=== PATIENT | male | born 1950 | race Hispanic/Latino ===

== ENCOUNTER 2018-04-09 08:57 | Emergency (ER) | payer MEDICARE, BC ==
[~2018-04-09] VITALS: Ht 177.8 cm; Wt 92.5 kg
[2018-04-09] MEDS ORDERED: HYDROCODONE/APAP 7.5MG-325MG 1 EA TAB PO STA (09:19)
[2018-04-09] MEDS ORDERED: ORPHENADRINE CITRATE 30 MG/ML VIAL IM ONE (09:30)
== END 2018-04-09 10:20 | disposition home or self-care (01) ==
LOC: ER 08:57
DX: M54.5 Low back pain (principal); S39.012A Strain of muscle, fascia and tendon of lower back, initial encounter; I10 Essential (primary) hypertension; E11.9 Type 2 diabetes mellitus without complications
CPT/HCPCS: 99283; J2360

== ENCOUNTER 2019-02-22 14:35 | Emergency (ER) | payer BC, MEDICARE, OTHER ==
[~2019-02-22] VITALS: Ht 177.8 cm; Wt 88.5 kg
--- OUTSIDE RECORDS SUMMARY | 2019-02-22 14:39 | XMS REPORT | Summary of Care ---
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 Allergies, Adverse Reactions, Alerts Substance Reaction Severity Status NKDA Active Medications No data available for this section Results No data available for this section Immunizations Given and Recorded Vaccine Date Status Refusal Reason pneumococcal 23-valent vaccine 06/11/13 Given Procedures Procedure Date Related Diagnosis Body Site Colonoscopy Esophagogastroduodenoscopy Insertion of coronary artery stent Social History No data available for this section Assessment and Plan No data available for this section
--- OUTSIDE RECORDS SUMMARY | 2019-02-22 14:39 | XMS REPORT | Continuity of Care Document ---
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 [place] Primary osteoarthritis, right ankle and foot 03/10/2018 09/20/[address] 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 [place] ANKLE Active 06/15/[address] [facility] [place] RIGHT ANKLE Active 06/15/[address] [facility] [place] UNK Active 06/06/2017 [facility] ANKLE SURGERY Active 06/06/2017 [facility] S/P TOTAL ANKLE AND OBSERVATION FOR PAIN Active 06/06/2017 [facility] M19.071 - "PRIMARY OSTEOARTHRITIS, RIGHT Active 05/08/2017 [facility] [place] Lumbosacral spondylosis without myelopathy1 Active 05/28/2013 Problem 10/23/2018 Data migrated from [facility] on 03/24/15. [facility] [place],[facility] [place] SPONDYLOSIS WITHOUT MYELOPATHY Active 05/28/2013 [facility] 724.2 - LUMBAGO Active 10/19/2011 [facility] [place] 250 - DIABETES MELLIT Active 09/28/2011 [facility] [place] Type 2 diabetes mellitus with foot ulcer 12/23/2017 [facility] BPH (Confirmed) Active Problem 10/23/2018 [facility], [place],[facility] [place] CAD (Confirmed) Active Problem 10/23/2018 [facility] [place] Diabetes Active Problem 10/23/2018 [facility] [place] Gout Active Problem 10/23/2018 [facility] [place] Hyperlipidemia Active Problem 10/23/2018 [facility] [place] HTN (Confirmed) Active Problem 10/23/2018 [facility] [place] Osteoarthritis Active Problem 10/23/2018 [facility] [place] History of coronary artery stent placement Active Problem 10/23/2018 [facility] [place] Unspecified open wound, right lower leg, subsequent encounter 12/23/2017 [facility] Type 2 diabetes mellitus with hyperglycemia 12/23/2017 [facility] Essential hypertension 12/23/2017 [facility] Atherosclerotic heart disease of [place] coronary artery without angina pectoris 12/23/2017 [facility] Disruption of external operation wound, not elsewhere classified, initial encounter 12/15/2017 [facility] Acute posthemorrhagic anemia 12/15/2017 [facility] Type 2 diabetes mellitus with diabetic peripheral angiopathy without gangrene 12/15/2017 [facility] Anemia in other chronic diseases classified elsewhere 12/15/2017 [facility] Insomnia, unspecified 12/15/2017 [facility] Presence of right artificial ankle joint 12/15/2017 [facility] Gout, unspecified 12/15/2017 [facility] Benign prostatic hyperplasia without lower urinary tract symptoms 12/15/2017 [facility] Hiccough 12/15/2017 [facility] Pseudomonas (mallei) (pseudomallei) as the cause of diseases classified elsewhere 12/15/2017 [facility] Disruption of external operation wound, not elsewhere classified, subsequent encounter 10/23/[address] [facility] [place] Stiffness of unspecified joint, not elsewhere classified 10/23/[address] [facility] [place] Muscle weakness 10/23/[address] [facility] [place] ARTHRITIS Active [facility] ENCOUNTER FOR OTHER ORTHOPEDIC AFTERCARE Active [facility] DISRUPTION OF EXTERNAL OPERATION (SURGIC Active [facility] Medications Medication Details Route Status Patient Instructions Ordering Provider Order Date Source enoxaparin 40 mg/0.4 mL subcutaneous solution 40 mg=0.4 mL, SUB-Q, [id number], X 30 day, # 12 mL, 0 Refill(s), Pharmacy: [facility]/pharmacy #[id number] No Longer Active 09/07/2017 [facility] ciprofloxacin 250 mg oral tablet 750 mg=3 tab, PO, [id number], X 5 week, # 210 tab, 0 Refill(s), Pharmacy: [facility]/pharmacy #[id number] No Longer Active 09/07/2017 [facility] carvedilol 12.5 mg oral tablet 12.5 mg=1 tab, PO, Q12H, 0 Refill(s) Active 09/07/2017 [facility] Melatonin 3 MG Extended Release Tablet 3 mg=1 tab, PO, Bedtime, 0 Refill(s) Active 09/07/2017 [facility] lisinopril 20 mg oral tablet 20 mg=1 tab, PO, Daily, 0 Refill(s) Active 09/07/2017 [facility] Bacitracin 1 appl, Route: TOP, Daily, Drug form: OINT, Start date: 09/07/17 16:00:00 FRAME COVERER, Duration: 30 day, Stop date: 10/07/17 9:00:00 FRAME COVERER No Longer Active 09/07/2017 [facility] Lovenox 40 mg, 0.4 mL, Route: SUB-Q, Drug form: INJ, [id number], Dosing Weight 95.455, kg, Start date: 09/07/17 11:00:00 FRAME COVERER, Duration: 30 day, Stop date: 10/06/17 11:00:00 CSTNotes: (Same as: Lovenox) No Longer Active 09/07/2017 [facility] Melatonin 3 MG Extended Release Tablet 3 mg, 1 tab, Route: PO, Drug Form: TAB, Dosing Weight 95.455, kg, Bedtime, Start date: 09/03/17 21:00:00 FRAME COVERER, Duration: 30 day, Stop date: 10/02/17 21:00:00 CSTNotes: (Same as: Melatonin) No Longer Active 09/04/2017 [facility] Chlorpromazine 25 mg, 1 tab, Route: PO, Drug form: TAB, TID, Dosing Weight 95.455, kg, Start date: 09/03/17 17:00:00 FRAME COVERER, Duration: 30 day, Stop date: 10/03/17 13:00:00 CSTNotes: (Same As: Thorazine) No Longer Active 09/03/2017 [facility] Benadryl 25 mg, 1 cap, Route: PO, Drug form: CAP, TID, Dosing Weight 95.455, kg, PRN Itching, Start date: 09/03/17 14:16:00 FRAME COVERER, Duration: 30 day, Stop date: 10/03/17 14:15:00 CSTNotes: (Same as: Benadryl) No Longer Active 09/03/2017 [facility] Tums 500 mg, 1 tab, Route: CHEW, Drug form: CHEWTAB, TID, Dosing Weight 95.455, kg, PRN Indigestion, Start date: 09/03/17 14:16:00 FRAME COVERER, Duration: 30 day, Stop date: 10/03/17 14:15:00 CSTNotes: (Same As: Tums) Calcium Carbonate 500 dz=079 mg elemental calcium Dose= mg calcium carbonate ( mg elemental calcium) No Longer Active 09/03/2017 [facility] Acetaminophen 300 MG / Codeine Phosphate 30 MG Oral Tablet [Tylenol with Codeine #3] 1 tab, Route: PO, Drug Form: TAB, Dosing Weight 95.455, kg, Q6H, PRN Pain Score 1-3, Start date: 09/03/17 10:02:00 FRAME COVERER, Duration: 30 day, Stop date: 10/03/17 10:01:00 CSTNotes: Do not exceed 4gm/day of acetaminophen. (Same as: Tylenol with Codeine # 3) No Longer Active 09/03/2017 [facility] Tramadol 100 mg, 2 tab, Route: PO, Drug form: TAB, Q6H, Dosing Weight 95.455, kg, PRN Pain Score 1-3, Start date: 09/03/17 10:00:00 FRAME COVERER, Duration: 30 day, Stop date: 10/03/17 9:59:00 CSTNotes: Not to exceed 4 00mg/day. (Same As: Ultram) No Longer Active 09/03/2017 [facility] Benadryl 25 mg, 1 cap, Route: PO, Drug form: CAP, Bedtime, Dosing Weight 95.455, kg, PRN Insomnia, Start date: 09/03/17 9:59:00 FRAME COVERER, Duration: 30 day, Stop date: 10/03/17 9:58:00 CSTNotes: (Same as: Benadryl) No Longer Active 09/03/2017 [facility] Tramadol 50 mg, 1 tab, Route: PO, Drug form: TAB, Q6H, Dosing Weight 95.455, kg, PRN Pain Score 1-3, Start date: 09/03/17 9:21:00 FRAME COVERER, Duration: 30 day, Stop date: 10/03/17 9:20:00 CSTNotes: Not to exceed 400mg/day. (Same As: Ultram) Inactive 09/03/2017 [facility] Tylenol 650 mg, 2 tab, Route: PO, Drug form: TAB, Q6H, Dosing Weight 95.455, kg, Start date: 09/03/17 0:00:00 FRAME COVERER, Duration: 30 day, Stop date: 10/02/17 18:00:00 CSTNotes: Do not exceed 4 gm/day. (Same as: Tylenol) Inactive 09/03/2017 [facility] Maalox Advanced Regular Strength SUSP 30 mL, Route: PO, Drug Form: SUSP, Dosing Weight 95.455, kg, QID, PRN Indigestion, Start date: 09/02/17 23:07:00 FRAME COVERER, Duration: 30 day, Stop date: 10/02/17 23:06:00 CSTNotes: (aluminum hydroxide-magnesium hyd-simethicone [id number]/5ml 30 ml ud HARJIT) No Longer Active 09/03/2017 [facility] Dulcolax Laxative 10 mg, 1 supp, Route: IL, Drug form: SUPP, Daily, Dosing Weight 95.455, kg, PRN Constipation, Priority: NOW, Start date: 09/02/17 9:27:00 FRAME COVERER, Duration: 30 day, Stop date: 10/02/17 9:26:00 CSTNotes: (Same As: Dulcolax, Bisco-Lax) No Longer Active 09/02/2017 [facility] Sodium Chloride 0.9% (titrate) 250 mL 250 mL, Rate: To prime line and flush remaining blood products., Dosing Weight 95.455, kg, Route: IV, Total Volume: 250, Start Date: 09/02/17 8:37:00 FRAME COVERER, Duration: 1 day, Stop date: 09/03/17 8:36:00 FRAME COVERER, Replace Every: 24 hr No Longer Active 09/02/2017 [facility] Lasix 20 mg, 2 mL, Route: IVP, Drug form: INJ, ONCE, Dosing Weight 95.455, kg, Start date: 09/02/17 8:34:00 FRAME COVERER, Stop date: 09/02/17 8:34:00 CSTNotes: (Same as: Lasix) Inactive 09/02/2017 [facility] Reglan 10 mg, 2 mL, Route: IVP, Drug form: INJ, Q6H, Dosing Weight 95.455, kg, PRN Nausea & Vomiting, Start date: 09/02/17 5:24:00 FRAME COVERER, Duration: 30 day, Stop date: 10/02/17 5:23:00 CSTNotes: (Same as: Reglan) No Longer Active 09/02/2017 [facility] Dulcolax Laxative 10 mg, 1 supp, Route: PO, Drug form: SUPP, Daily, Dosing Weight 95.455, kg, PRN Constipation, Start date: 09/02/17 5:23:00 FRAME COVERER, Duration: 30 day, Stop date: 10/02/17 5:22:00 CSTNotes: (Same As: Dulcolax, Bisco-Lax) No Longer Active 09/02/2017 [facility] Ciprofloxacin 750 mg, 3 tab, Route: PO, Drug form: TAB, [id number], Dosing Weight 95.455, kg, Start date: 09/01/17 19:00:00 FRAME COVERER, Duration: 6 week, Stop date: 10/13/17 9:00:00 CDT, ABX Indication: Bone/Joint Infection No Longer Active 09/02/2017 [facility] Insulin Lispro 3 unit, 0.03 mL, Route: SUB-Q, Drug form: SOLN, TID-Before Meals, Dosing Weight 95.455, kg, PRN Blood Glucose Results, Start date: 09/01/17 15:51:00 FRAME COVERER, Duration: 30 day, Stop date: 10/01/17 15:50:0 0 CSTNotes: (Same as: Humalog ) Roll in palms of hands gently; Do not shake `vigorously. "Single Patient Use Only " WASTE: F/P - Black; E - Municipal Trash Bin Stable for 28 days at room temperature. Expires in days from Date No Longer Active 09/01/2017 [facility] Dextrose 50% Syringe 25 gm, 50 mL, Route: IVP, Drug Form: INJ, Dosing Weight 95.455, kg, PRN, PRN Blood Glucose Results, Start date: 09/01/17 15:51:00 FRAME COVERER, Duration: 30 day, Stop date: 10/01/17 15:50:00 FRAME COVERER No Longer Active 09/01/2017 [facility] Glucagon 1 mg, Route: IM, Drug form: PDR/INJ, PRN, Dosing Weight 95.455, kg, PRN Blood Glucose Results, Start date: 09/01/17 15:51:00 FRAME COVERER, Duration: 30 day, Stop date: 10/01/17 15:50:00 FRAME COVERER No Longer Active 09/01/2017 [facility] Docusate Sodium 100 MG Oral Capsule 100 mg, 1 cap, Route: PO, Drug form: CAP, BID, Dosing Weight 95.455, kg, Start date: 09/01/17 9:00:00 FRAME COVERER, Duration: 30 day, Stop date: 09/30/17 17:00:00 CSTNotes: (Same as: Colace) (Do Not Crush) No Longer Active 09/01/2017 [facility] morphine Sulfate 4 mg, 1 mL, Route: IVP, Drug form: SOLN, ONCE, Start date: 09/01/17 1:19:00 FRAME COVERER, Stop date: 09/01/17 1:19:00 CSTNotes: (Same as:MORPhine Sulfate) Inactive 09/01/2017 [facility] Dilaudid 0.5 mg, Route: IVP, ONCE, Dosing Weight 95.455, kg, Priority: STAT, Start date: 09/01/17 0:57:00 FRAME COVERER, Stop date: 09/01/17 0:57:00 FRAME COVERER Inactive 09/01/2017 [facility] Naloxone 0.04 mg, 0.1 mL, Route: IVP, Drug form: INJ, Q2MIN, Dosing Weight 95.455, kg, PRN Narcotic Reversal, Start date: 08/31/17 22:38:00 FRAME COVERER, Duration: 30 day, Stop date: 09/30/17 22:37:00 CSTNotes: Same as Narcan No Longer Active 09/01/2017 [facility] Morphine 30 mg, 30 mL, Route: IV, Initial Loading Dose: 2 mg, [employer] Dose: 1 mg, [employer] Lockout: 10 minutes, Continuous Basal Rate: 0 mg, 4 Hour Limit (In MG): 30, Drug Form: INJ, Continuous, Start date: 08/31/17 22: 38:00 FRAME COVERER, Duration: 30 day, Stop date: 09/30/17...Notes: Dose: Delay: Basal rate: 4hr limit: (Same as:Alhaji) No Longer Active 09/01/2017 [facility] Ondansetron 4 mg, 2 mL, Route: IVP, Drug form: INJ, Q6H, Dosing Weight 95.455, kg, PRN Nausea & Vomiting, Start date: 08/31/17 22:38:00 FRAME COVERER, Duration: 30 day, Stop date: 09/30/17 22:37:00 CSTNotes: (Same as: Zofran) MEDICATION WASTE Product Size: 4 mg Product Wasted: ___ mg No Longer Active 09/01/2017 [facility] metoprolol (ANES) Route: IV, Drug form: INJ, ONCE, Stop date: 08/31/17 22:16:00 FRAME COVERER Inactive 09/01/2017 [facility] ondansetron (ANES) Route: IV, Drug form: INJ, ONCE, Stop date: 08/31/17 22:16:00 FRAME COVERER Inactive 09/01/2017 [facility] glycopyrrolate (ANES) Route: IV, Drug form: INJ, ONCE, Stop date: 08/31/17 22:16:00 FRAME COVERER Inactive 09/01/2017 [facility] neostigmine (ANES) Route: IV, Drug form: INJ, ONCE, Stop date: 08/31/17 22:16:00 FRAME COVERER Inactive 09/01/2017 [facility] EPINEPHrine (ANES) Route: IV, Drug form: INJ, ONCE, Stop date: 08/31/17 21:15:00 FRAME COVERER Inactive 09/01/2017 [facility] ePHEDrine (ANES) Route: IV, Drug form: INJ, ONCE, Stop date: 08/31/17 20:55:00 FRAME COVERER Inactive 09/01/2017 [facility] midazolam (ANES) Route: IV, Drug form: SOLN, ONCE, Stop date: 08/31/17 20:40:00 FRAME COVERER Inactive 09/01/2017 [facility] fentaNYL (ANES) Route: IV, Drug form: INJ, ONCE, Stop date: 08/31/17 19:30:00 FRAME COVERER Inactive 09/01/2017 [facility] propofol (ABRAZO [place]ROW[place] CAMPUSS) Route: IV, Drug form: INJ, ONCE, Stop date: 08/31/17 19:25:00 FRAME COVERER Inactive 09/01/2017 [facility] rocuronium (ANES) Route: IV, Drug form: INJ, ONCE, Stop date: 08/31/17 18:40:00 FRAME COVERER Inactive 09/01/2017 [facility] ceFAZolin (ABRAZO ARROWHEAD CAMPUSS) Route: IV, Drug form: INJ, ONCE, Stop date: 08/31/17 18:15:00 FRAME COVERER Inactive 09/01/2017 [facility] Flumazenil 0.2 mg, Route: IVP, PRN, Dosing Weight 95.455, kg, PRN Benzodiazepine Reversal, Initial dose, Start date: 08/31/17 17:55:00 FRAME COVERER, Duration: 30 day, Stop date: 09/30/17 17:54:00 FRAME COVERER No Longer Active 08/31/2017 [facility] Naloxone 0.4 mg, Route: IVP, Q2MIN, Dosing Weight 95.455, kg, PRN Narcotic Reversal, Start date: 08/31/17 17:55:00 FRAME COVERER, Duration: 8 doses or times, Stop date: Limited # of times No Longer Active 08/31/2017 [facility] Hydromorphone 0.5 mg, Route: IVP, Q5Min, Dosing Weight 95.455, kg, PRN Pain Score 7-10, Start date: 08/31/17 17:55:00 FRAME COVERER, Duration: 4 doses or times, Stop date: Limited # of times No Longer Active 08/31/2017 [facility] Ondansetron 4 mg, Route: IVP, ONCE, Dosing Weight 95.455, kg, PRN Nausea & Vomiting, Start date: 08/31/17 17:55:00 FRAME COVERER No Longer Active 08/31/2017 [facility] Oxycodone 5 mg, Route: PO, Drug form: TAB, Q4H, Dosing Weight 95.455, kg, PRN Pain Score 4-6, Start date: 08/31/17 17:55:00 FRAME COVERER, Duration: 30 day, Stop date: 09/30/17 17:54:00 FRAME COVERER No Longer Active 08/31/2017 [facility] calcium chloride (ANES) Route: IV, Drug form: INJ, ONCE, Stop date: 08/31/17 17:55:00 FRAME COVERER Inactive 08/31/2017 [facility] acetaminophen (ANES) 10 mg Route: IV, Drug form: INJ, Start date: 08/31/17 17:45:00 FRAME COVERER, Stop date: 08/31/17 18:45:00 FRAME COVERER Inactive 08/31/2017 [facility] rocuronium (ANES) Route: IV, Drug form: INJ, ONCE, Stop date: 08/31/17 16:44:00 FRAME COVERER Inactive 08/31/2017 [facility] ketAMINE (ANES) Route: IV, Drug form: INJ, ONCE, Stop date: 08/31/17 16:44:00 FRAME COVERER Inactive 08/31/2017 [facility] heparin (ANES) 5000 unit + Route: IV, Drug form: INJ, Dosing Weight 95.5, kg, Start date: 08/31/17 16:11:00 FRAME COVERER, Stop date: 08/31/17 17:11:00 FRAME COVERER Inactive 08/31/2017 [facility] calcium chloride (ANES) Route: IV, Drug form: INJ, ONCE, Stop date: 08/31/17 15:59:00 FRAME COVERER Inactive 08/31/2017 [facility] glycopyrrolate (ANES) Route: IV, Drug form: INJ, ONCE, Stop date: 08/31/17 15:59:00 FRAME COVERER Inactive 08/31/2017 [facility] heparin (ANES) Route: IV, Drug form: INJ, ONCE, Stop date: 08/31/17 15:39:00 FRAME COVERER Inactive 08/31/2017 [facility] Calcium Chloride 0.0014 MEQ/ML / Potassium Chloride 0.004 MEQ/ML / Sodium Chloride 0.103 MEQ/ML / Sodium Lactate 0.028 MEQ/ML Injectable Solution 500 mL, Rate: 12.5 ml/hr, Infuse over: 40 hr, Route: IV, Dosing Weight 95.455 kg, Total Volume: 500, Start date: 08/31/17 13:40:00 FRAME COVERER, Stop date: 09/30/17 13:42:00 FRAME COVERER, 2.19, m2 No Longer Active 08/31/2017 [facility] ketAMINE (ANES) Route: IV, Drug form: INJ, ONCE, Stop date: 08/31/17 12:47:00 FRAME COVERER Inactive 08/31/2017 [facility] dexamethasone (ANES) Route: IV, Drug form: INJ, ONCE, Stop date: 08/31/17 12:47:00 FRAME COVERER Inactive 08/31/2017 [facility] ceFAZolin (ANES) Route: IV, Drug form: INJ, ONCE, Stop date: 08/31/17 12:42:00 FRAME COVERER Inactive 08/31/2017 [facility] fentaNYL (ANES) Route: IV, Drug form: INJ, ONCE, Stop date: 08/31/17 12:42:00 FRAME COVERER Inactive 08/31/2017 [facility] rocuronium (ANES) Route: IV, Drug form: INJ, ONCE, Stop date: 08/31/17 12:42:00 FRAME COVERER Inactive 08/31/2017 [facility] propofol (ANES) Route: IV, Drug form: INJ, ONCE, Stop date: 08/31/17 12:42:00 FRAME COVERER Inactive 08/31/2017 [facility] lidocaine (ANES) Route: IV, Drug form: INJ, ONCE, Stop date: 08/31/17 12:42:00 FRAME COVERER Inactive 08/31/2017 [facility] midazolam (ANES) Route: IV, Drug form: SOLN, ONCE, Stop date: 08/31/17 12:42:00 FRAME COVERER Inactive 08/31/2017 [facility] Lactated Ringers Injection IV (ANES) 1000 mL Route: IV, Total Volume: 1,000, Start date: 08/31/17 11:40:00 FRAME COVERER, Stop date: 08/31/17 12:40:00 FRAME COVERER Inactive 08/31/2017 [facility] Isolyte S PH 7.4 1,000 mL 1,000 mL, Rate: 135 ml/hr, Infuse over: 7.4 hr, Route: IV, Dosing Weight 95.455 kg, Total Volume: 1,000, Start date: 08/31/17 0:01:00 FRAME COVERER, Duration: 30 day, Stop date: 09/30/17 0:00:00 FRAME COVERER, 2.19, [id number]: (Same as: Isolyte S PH 7.4) No Longer Active 08/31/2017 [facility] sugammadex 1,500 mg, 15 mL, Route: IV, Drug form: SOLN, ONCE, Start date: 08/30/17 13:56:00 FRAME COVERER, Stop date: 08/30/17 13:56:00 CSTNotes: (Same as: Bridion) No Longer Active 08/30/2017 [facility] sugammadex 200 mg, 2 mL, Route: IV, Drug form: SOLN, ONCE, Start date: 08/30/17 13:54:00 FRAME COVERER, Stop date: 08/30/17 13:54:00 CSTNotes: (Same as: Bridion) No Longer Active 08/30/2017 [facility] acetaminophen (ANES) Route: IV, Drug form: INJ, ONCE, Stop date: 08/30/17 9:31:00 FRAME COVERER Inactive 08/30/2017 [facility] ondansetron (ANES) Route: IV, Drug form: INJ, ONCE, Stop date: 08/30/17 9:31:00 FRAME COVERER Inactive 08/30/2017 [facility] sugammadex (ANES) Route: IV, Drug form: SOLN, ONCE, Stop date: 08/30/17 9:31:00 FRAME COVERER Inactive 08/30/2017 [facility] ePHEDrine (ANES) Route: IV, Drug form: INJ, ONCE, Stop date: 08/30/17 8:34:00 FRAME COVERER Inactive 08/30/2017 [facility] rocuronium (ANES) Route: IV, Drug form: INJ, ONCE, Stop date: 08/30/17 8:29:00 FRAME COVERER Inactive 08/30/2017 [facility] fentaNYL (ANES) Route: IV, Drug form: INJ, ONCE, Stop date: 08/30/17 8:29:00 FRAME COVERER Inactive 08/30/2017 [facility] propofol (ANES) Route: IV, Drug form: INJ, ONCE, Stop date: 08/30/17 8:29:00 FRAME COVERER Inactive 08/30/2017 [facility] lidocaine (ANES) Route: IV, Drug form: INJ, ONCE, Stop date: 08/30/17 8:29:00 FRAME COVERER Inactive 08/30/2017 [facility] midazolam (ANES) Route: IV, Drug form: SOLN, ONCE, Stop date: 08/30/17 8:29:00 FRAME COVERER Inactive 08/30/2017 [facility] ceFAZolin (ANES) Route: IV, Drug form: INJ, ONCE, Stop date: 08/30/17 8:19:00 FRAME COVERER Inactive 08/30/2017 [facility] Ondansetron 4 mg, 2 mL, Route: IVP, Drug form: INJ, ONCE, Dosing Weight 95.455, kg, PRN Nausea & Vomiting, Start date: 08/30/17 8:16:00 CSTNotes: (Same as: Zofran) MEDICATION WASTE Product Size: 4 mg Product Wasted: ___ mg Inactive 08/30/2017 [facility] Promethazine 6.25 mg, 0.25 mL, Route: IVPB, Drug form: INJ, ONCE, Dosing Weight 95.455, kg, PRN Nausea & Vomiting, Start date: 08/30/17 8:16:00 CSTNotes: Do not give IV push. (Same as: Phenergan) Inactive 08/30/2017 [facility] Diphenhydramine 12.5 mg, 0.25 mL, Route: IVP, Drug form: INJ, Q6H, Dosing Weight 95.455, kg, PRN Itching, Start date: 08/30/17 8:16:00 FRAME COVERER, Stop date: 08/31/17 0:00:00 CSTNotes: (Same as: Benadryl) Inactive 08/30/2017 [facility] Naloxone 0.4 mg, 1 mL, Route: IVP, Drug form: INJ, Q2MIN, Dosing Weight 95.455, kg, PRN Narcotic Reversal, Start date: 08/30/17 8:16:00 FRAME COVERER, Duration: 8 doses or times, Stop date: 08/31/17 0:00:00 CSTNotes: Same as Narcan Inactive 08/30/2017 [facility] Flumazenil 0.2 mg, 2 mL, Route: IVP, Drug form: INJ, PRN, Dosing Weight 95.455, kg, PRN Benzodiazepine Reversal, Initial dose, Start date: 08/30/17 8:16:00 FRAME COVERER, Stop date: 08/31/17 0:00:00 CSTNotes: (Same as: R omazicon) Inactive 08/30/2017 [facility] Oxycodone 5 mg, 5 mL, Route: NG, Drug form: LIQ, Q4H, Dosing Weight 95.455, kg, PRN Pain Score 4-6, Start date: 08/30/17 8:16:00 FRAME COVERER, Stop date: 08/31/17 0:00:00 CSTNotes: (Same as: 'Roxicodone) Inactive 08/30/2017 [facility] Hydromorphone 0.5 mg, 0.25 mL, Route: IVP, Drug form: INJ, Q5Min, Dosing Weight 95.455, kg, PRN Pain Score 7-10, Start date: 08/30/17 8:16:00 FRAME COVERER, Duration: 4 doses or times, Stop date: 08/31/17 0:00:00 CSTNotes: Same as Dilaudid Inactive 08/30/2017 [facility] Hydralazine 10 mg, 0.5 mL, Route: IVP, Drug form: INJ, Q20Min, Dosing Weight 95.455, kg, PRN Elevated BP, Start date: 08/30/17 8:16:00 FRAME COVERER, Duration: 2 doses or times, Stop date: 08/31/17 0:00:00 CSTNotes: (Same as: Apresoline) Push over 5 minutes Inactive 08/30/2017 [facility] Labetalol 10 mg, 2 mL, Route: IVP, Drug form: INJ, Q5Min, Dosing Weight 95.455, kg, PRN Elevated BP, Start date: 08/30/17 8:16:00 FRAME COVERER, Duration: 5 doses or times, Stop date: 08/31/17 0:00:00 FRAME COVERER Inactive 08/30/2017 [facility] Lactated Ringers Injection IV (ANES) 1000 mL Route: IV, Total Volume: 1,000, Start date: 08/30/17 7:24:00 FRAME COVERER, Stop date: 08/30/17 8:24:00 FRAME COVERER Inactive 08/30/2017 [facility] Isolyte S PH 7.4 1,000 mL 1,000 mL, Rate: 130 ml/hr, Infuse over: 7.7 hr, Route: IV, Dosing Weight 95.455 kg, Total Volume: 1,000, Start date: 08/30/17 0:01:00 FRAME COVERER, Duration: 30 day, Stop date: 09/29/17 0:00:00 FRAME COVERER, 2.19, [id number]: (Same as: Isolyte S PH 7.4) No Longer Active 08/30/2017 [facility] sennosides, ALF 8.6 MG Oral Tablet 8.6 mg, 1 tab, Route: PO, Drug Form: TAB, Dosing Weight 95.455, kg, Bedtime, Start date: 08/29/17 21:00:00 FRAME COVERER, Duration: 30 day, Stop date: 09/27/17 21:00:00 CSTNotes: (Same as: Senokot) No Longer Active 08/30/2017 [facility] Flomax 0.4 mg, 1 cap, Route: PO, Drug form: CAP, After Dinner, Dosing Weight 95.455, kg, Start date: 08/29/17 17:00:00 FRAME COVERER, Duration: 30 day, Stop date: 09/27/17 17:00:00 CSTNotes: (Same As: Flomax) "Do Not Crush" No Longer Active 08/29/2017 [facility] Docusate Sodium 100 MG Oral Capsule 100 mg, 1 cap, Route: PO, Drug form: CAP, BID, Dosing Weight 95.455, kg, Start date: 08/29/17 17:00:00 FRAME COVERER, Duration: 30 day, Stop date: 09/28/17 9:00:00 CSTNotes: (Same as: Colace) (Do Not Crush) No Longer Active 08/29/2017 [facility] Miralax 17 gm, 1 pkt, Route: PO, Drug form: PWDR, Daily, Dosing Weight 95.455, kg, PRN Constipation, Start date: 08/29/17 15:41:00 FRAME COVERER, Duration: 30 day, Stop date: 09/28/17 15:40:00 CSTNotes: Dissolve in 8 oz of water or juice. (Same as: Miralax) No Longer Active 08/29/2017 [facility] Lovenox 40 mg, 0.4 mL, Route: SUB-Q, Drug form: INJ, [id number], Dosing Weight 95.455, kg, Start date: 08/29/17 9:00:00 FRAME COVERER, Duration: 30 day, Stop date: 09/27/17 9:00:00 CSTNotes: (Same as: Lovenox) No Longer Active 08/29/2017 [facility] cefepime 2 gm, Route: IVP, Q12H, Dosing Weight 95.455, kg, Start date: 08/29/17 9:00:00 FRAME COVERER, Duration: 30 day, Stop date: 09/28/17 1:00:00 FRAME COVERER, ABX Indication: Skin/Soft Tissue InfectionNotes: (Same as: Maxipime ) MEDICATION WASTE Product Size: 2000 mg Product Wasted: ___ mg No Longer Active 08/29/2017 [facility] Allopurinol 300 mg, 1 tab, Route: PO, Drug form: TAB, Daily, Dosing Weight 95.455, kg, Start date: 08/29/17 9:00:00 FRAME COVERER, Duration: 30 day, Stop date: 09/27/17 9:00:00 CSTNotes: (Same as: Zyloprim) No Longer Active 08/29/2017 [facility] Aspirin 81 MG Enteric Coated Tablet 81 mg, 1 tab, Route: PO, Drug form: ECTAB, Daily, Dosing Weight 95.455, kg, Start date: 08/29/17 9:00:00 FRAME COVERER, Duration: 30 day, Stop date: 09/27/17 9:00:00 CSTNotes: Do not crush or chew. (Same As: Ecotrin) No Longer Active 08/29/2017 [facility] amLODIPine 5 mg oral tablet TAKE A HALF TABLET BY MOUTH TWICE A DAY Active 08/29/2017 [facility] atorvastatin 80 mg, 1 tab, Route: PO, Drug form: TAB, Bedtime, Dosing Weight 95.455, kg, Start date: 08/28/17 21:00:00 FRAME COVERER, Duration: 30 day, Stop date: 09/26/17 21:00:00 CSTNotes: Same as Lipitor No Longer Active 08/29/2017 [facility] Ancef 1 gm, Route: IVPB, ABXQ8H, Dosing Weight 95.455, kg, Start date: 08/28/17 17:00:00 FRAME COVERER, Duration: 14 day, Stop date: 09/11/17 12:00:00 FRAME COVERER, ABX Indication: Open Wound ProphylaxisNotes: (Same As: Ancef, Kefzol) MEDICATION WASTE Product Size: 1000 mg Product Wasted: ___ mg No Longer Active 08/28/2017 [facility] Morphine 2 mg, 0.5 mL, Route: IVP, Drug form: SOLN, Q2H, Dosing Weight 95.455, kg, PRN Pain Score 7-10, Start date: 08/28/17 16:38:00 FRAME COVERER, Duration: 30 day, Stop date: 09/27/17 16:37:00 CSTNotes: (Same as:MORPhine Sulfate) No Longer Active 08/28/2017 [facility] Acetaminophen 325 MG / Hydrocodone Bitartrate 10 MG Oral Tablet [[place] 10/325] 2 tab, Route: PO, Drug Form: TAB, Dosing Weight 95.455, kg, Q4H, PRN Pain Score 4-6, Start date: 08/28/17 16:38:00 FRAME COVERER, Duration: 30 day, Stop date: 09/27/17 16:37:00 CSTNotes: Do not exceed 4gm/day of acetaminophen. (Same as: [place] 325/10) No Longer Active 08/28/2017 [facility] ceFAZolin (ANES) Route: IV, Drug form: INJ, ONCE, Stop date: 08/28/17 16:32:00 FRAME COVERER Inactive 08/28/2017 [facility] ondansetron (ANES) Route: IV, Drug form: INJ, ONCE, Stop date: 08/28/17 16:32:00 FRAME COVERER Inactive 08/28/2017 [facility] vasopressin (ANES) Route: IV, Drug form: INJ, ONCE, Stop date: 08/28/17 16:32:00 FRAME COVERER Inactive 08/28/2017 [facility] neostigmine (ANES) Route: IV, Drug form: INJ, ONCE, Stop date: 08/28/17 16:32:00 FRAME COVERER Inactive 08/28/2017 [facility] glycopyrrolate (ANES) Route: IV, Drug form: INJ, ONCE, Stop date: 08/28/17 16:32:00 FRAME COVERER Inactive 08/28/2017 [facility] propofol (ANES) Route: IV, Drug form: INJ, ONCE, Stop date: 08/28/17 16:23:00 FRAME COVERER Inactive 08/28/2017 [facility] lidocaine (ANES) Route: IV, Drug form: INJ, ONCE, Stop date: 08/28/17 16:23:00 FRAME COVERER Inactive 08/28/2017 [facility] rocuronium (ANES) Route: IV, Drug form: INJ, ONCE, Stop date: 08/28/17 16:23:00 FRAME COVERER Inactive 08/28/2017 [facility] ePHEDrine (ANES) Route: IV, Drug form: INJ, ONCE, Stop date: 08/28/17 16:23:00 FRAME COVERER Inactive 08/28/2017 [facility] fentaNYL (ANES) Route: IV, Drug form: INJ, ONCE, Stop date: 08/28/17 16:23:00 FRAME COVERER Inactive 08/28/2017 [facility] midazolam (ANES) Route: IV, Drug form: SOLN, ONCE, Stop date: 08/28/17 16:18:00 FRAME COVERER Inactive 08/28/2017 [facility] Hydralazine 10 mg, Route: IVP, Q20Min, Dosing Weight 95.455, kg, PRN Elevated BP, Start date: 08/28/17 16:09:00 FRAME COVERER, Duration: 2 doses or times, Stop date: Limited # of times Inactive 08/28/2017 [facility] Labetalol 10 mg, Route: IVP, Q5Min, Dosing Weight 95.455, kg, PRN Elevated BP, Start date: 08/28/17 16:09:00 FRAME COVERER, Duration: 5 doses or times, Stop date: Limited # of times Inactive 08/28/2017 [facility] Hydromorphone 0.5 mg, Route: IVP, Q5Min, Dosing Weight 95.455, kg, PRN Pain Score 7-10, Start date: 08/28/17 16:09:00 FRAME COVERER, Duration: 4 doses or times, Stop date: Limited # of times Inactive 08/28/2017 [facility] Flumazenil 0.2 mg, Route: IVP, PRN, Dosing Weight 95.455, kg, PRN Benzodiazepine Reversal, Initial dose, Start date: 08/28/17 16:09:00 FRAME COVERER, Duration: 30 day, Stop date: 09/27/17 16:08:00 FRAME COVERER Inactive 08/28/2017 [facility] Naloxone 0.4 mg, Route: IVP, Q2MIN, Dosing Weight 95.455, kg, PRN Narcotic Reversal, Start date: 08/28/17 16:09:00 FRAME COVERER, Duration: 8 doses or times, Stop date: Limited # of times Inactive 08/28/2017 [facility] Ondansetron 4 mg, Route: IVP, ONCE, Dosing Weight 95.455, kg, PRN Nausea & Vomiting, Start date: 08/28/17 16:09:00 FRAME COVERER Inactive 08/28/2017 [facility] Oxycodone 5 mg, Route: PO, Drug form: TAB, Q4H, Dosing Weight 95.455, kg, PRN Pain Score 4-6, Start date: 08/28/17 16:09:00 FRAME COVERER, Duration: 30 day, Stop date: 09/27/17 16:08:00 FRAME COVERER Inactive 08/28/2017 [facility] acetaminophen (ANES) 1000 mg Route: IV, Drug form: INJ, Start date: 08/28/17 16:06:00 FRAME COVERER, Stop date: 08/28/17 17:06:00 FRAME COVERER Inactive 08/28/2017 [facility] Lactated Ringers Injection IV (ANES) 1000 mL Route: IV, Total Volume: 1,000, Start date: 08/28/17 15:51:00 FRAME COVERER, Stop date: 08/28/17 16:51:00 FRAME COVERER Inactive 08/28/2017 [facility] Hydralazine 20 mg, 1 mL, Route: IV, Drug form: INJ, Q4H, Dosing Weight 95.455, kg, PRN Hypertension, Start date: 08/28/17 14:28:00 FRAME COVERER, Duration: 30 day, Stop date: 09/27/17 14:27:00 CSTNotes: (Same as: Apresoline) Push over 5 minutes No Longer Active 08/28/2017 [facility] Lisinopril 20 mg, 1 tab, Route: PO, Drug form: TAB, Daily, Dosing Weight 95.455, kg, Priority: NOW, Start date: 08/28/17 14:27:00 FRAME COVERER, Duration: 30 day, Stop date: 09/27/17 9:00:00 CSTNotes: (Same as: Prinivil, Zestril) No Longer Active 08/28/2017 [facility] Coreg 12.5 mg, 1 tab, Route: PO, Drug form: TAB, Q12H, Dosing Weight 95.455, kg, Priority: NOW, Start date: 08/28/17 14:27:00 FRAME COVERER, Duration: 30 day, Stop date: 09/27/17 9:00:00 CSTNotes: Give with food. (Same As: Coreg) No Longer Active 08/28/2017 [facility] clopidogrel 75 mg oral tablet 75 mg=1 tab, PO, Daily, # 30 tab, 0 Refill(s) Active 08/28/2017 [facility] Insulin regular 1 unit, 0.01 mL, Route: SUB-Q, Drug form: SOLN, Sliding Scale, Dosing Weight 95.455, kg, PRN Blood Glucose Results, Start date: 08/28/17 14:11:00 FRAME COVERER, Duration: 30 day, Stop date: 09/27/17 14:10:00 CSTN otes: (Same as: Humulin R) Roll in palms of hands gently; Do not shake vigorously. "single patient use only" (Restricted to patients requiring a dose > 60 units) WASTE: F/P - Black; E - Municipal Trash Bin Stable for 28 days at room temperature Expires in days from Date No Longer Active 08/28/2017 [facility] Dextrose 50% Syringe 12.5 gm, 25 mL, Route: IVP, Drug Form: INJ, Dosing Weight 95.455, kg, PRN, PRN Blood Glucose Results, Start date: 08/28/17 14:11:00 FRAME COVERER, Duration: 30 day, Stop date: 09/27/17 14:10:00 FRAME COVERER No Longer Active 08/28/2017 [facility] Glucagon 1 mg, Route: IM, Drug form: PDR/INJ, PRN, Dosing Weight 95.455, kg, PRN Blood Glucose Results, Start date: 08/28/17 14:11:00 FRAME COVERER, Duration: 30 day, Stop date: 09/27/17 14:10:00 FRAME COVERER No Longer Active 08/28/2017 [facility] Lactated Ringers IV 1,000 mL 1,000 mL, Rate: 125 ml/hr, Infuse over: 8 hr, Route: IV, Dosing Weight 95.455 kg, Total Volume: 1,000, Start date: 08/28/17 9:24:00 FRAME COVERER, Duration: 30 day, Stop date: 09/27/17 9:23:00 FRAME COVERER, 2.2, m2 No Longer Active 08/28/2017 [facility] Acetaminophen 325 MG / Hydrocodone Bitartrate 10 MG Oral Tablet [[place] 10/325] 1 tab, Route: PO, Drug Form: TAB, Dosing Weight 95.455, kg, ONCE, Start date: 06/16/17 14:25:00 FRAME COVERER, Stop date: 06/16/17 14:25:00 CSTNotes: Do not exceed 4gm/day of acetaminophen. (Same as: [place] 325/10) Inactive 06/16/2017 [facility] 0.4 ML Enoxaparin sodium 100 MG/ML Prefilled Syringe [Lovenox] 40 mg, SUB-Q, Daily, X 14 day, # 14 syr, 0 Refill(s), Pharmacy: [facility]/pharmacy #[id number] Active 06/16/2017 [facility] Amlodipine 5 mg, 1 tab, Route: PO, Drug form: TAB, Daily, Dosing Weight 95.455, kg, Start date: 06/16/17 9:00:00 FRAME COVERER, Duration: 30 day, Stop date: 07/16/17 8:59:00 CSTNotes: (Same as: Norvasc) Inactive 06/16/2017 [facility] Allopurinol 300 mg, 1 tab, Route: PO, Drug form: TAB, Daily, Dosing Weight 95.455, kg, Start date: 06/16/17 9:00:00 FRAME COVERER, Duration: 30 day, Stop date: 07/16/17 8:59:00 CSTNotes: (Same as: Zyloprim) Inactive 06/16/2017 [facility] atorvastatin 80 mg, 2 tab, Route: PO, Drug form: TAB, Bedtime, Dosing Weight 95.455, kg, Start date: 06/15/17 21:00:00 FRAME COVERER, Duration: 30 day, Stop date: 07/15/17 20:59:00 CSTNotes: (Same as: Lipitor) No Longer Active 06/16/2017 [facility] Ancef + sterile water 10 mL 1 gm, Route: IV, ABXQ8H, Dosing Weight 95.455, kg, Start date: 06/15/17 16:00:00 FRAME COVERER, Duration: 3 doses or times, Stop date: 06/16/17 8:00:00 FRAME COVERER, ABX Indication: Surgical ProphylaxisNotes: (Same As: Ancef, Kefzol) MEDICATION WASTE Product Size: 1000 mg Product Wasted: ___ mg No Longer Active 06/15/2017 [facility] Insulin Lispro 10 unit, 0.1 mL, Route: SUB-Q, Drug form: SOLN, TID-Before Meals, Dosing Weight 95.455, kg, PRN Blood Glucose Results, Start date: 06/15/17 15:25:00 FRAME COVERER, Duration: 30 day, Stop date: 07/15/17 15:24:0 0 CSTNotes: Roll in palms of hands gently; Do not shake `vigorously. (Same as: Humalog ) "Single Patient Use Only " WASTE: F/P - Black; E - Municipal Trash Bin Stable for 28 days at room temperature. Expires in days from Date No Longer Active 06/15/2017 [facility] Glucagon 1 mg, Route: IM, Drug form: PDR/INJ, PRN, Dosing Weight 95.455, kg, PRN Blood Glucose Results, Start date: 06/15/17 15:25:00 FRAME COVERER, Duration: 30 day, Stop date: 07/15/17 15:24:00 FRAME COVERER No Longer Active 06/15/2017 [facility] Dextrose 50% Syringe 25 gm, 50 mL, Route: IVP, Drug Form: INJ, Dosing Weight 95.455, kg, PRN, PRN Blood Glucose Results, Start date: 06/15/17 15:25:00 FRAME COVERER, Duration: 30 day, Stop date: 07/15/17 15:24:00 FRAME COVERER No Longer Active 06/15/2017 [facility] Acetaminophen 325 MG / Hydrocodone Bitartrate 10 MG Oral Tablet [[place] 10/325] 1 tab, Route: PO, Drug Form: TAB, Dosing Weight 95.455, kg, Q6H, Start date: 06/15/17 12:00:00 FRAME COVERER, Duration: 30 day, Stop date: 07/15/17 11:59:00 CSTNotes: Do not exceed 4gm/day of acetaminophen. (Same as: [place] 325/10) No Longer Active 06/15/2017 [facility] Lovenox 40 mg, 0.4 mL, Route: SUB-Q, Drug form: INJ, [id number], Dosing Weight 95.455, kg, Start date: 06/15/17 11:00:00 FRAME COVERER, Stop date: 07/16/17 9:00:00 CSTNotes: (Same as: Lovenox) No Longer Active 06/15/2017 [facility] Ancef + sterile water 10 mL 1 gm, Route: IV, [id number], Dosing Weight 95.455, kg, Start date: 06/15/17 11:00:00 FRAME COVERER, Duration: 3 doses or times, Stop date: 06/16/17 10:59:00 FRAME COVERER, ABX Indication: Surgical ProphylaxisNotes: (Same As: Ancef, Kefzol) MEDICATION WASTE Product Size: 1000 mg Product Wasted: ___ mg Inactive 06/15/2017 [facility] Hydromorphone 0.5 mg, 0.5 mL, Route: IVP, Drug form: INJ, Q5Min, Dosing Weight 95.455, kg, PRN Pain Score 7-10, Start date: 06/15/17 10:49:00 FRAME COVERER, Duration: 4 doses or times, Stop date: Limited # of timesNotes: Sa me as: Dilaudid Inactive 06/15/2017 [facility] Naloxone 0.4 mg, 1 mL, Route: IVP, Drug form: INJ, Q2MIN, Dosing Weight 95.455, kg, PRN Narcotic Reversal, Start date: 06/15/17 10:49:00 FRAME COVERER, Duration: 8 doses or times, Stop date: Limited # of timesNotes: Same as Narcan Inactive 06/15/2017 [facility] Flumazenil 0.2 mg, 2 mL, Route: IVP, Drug form: INJ, PRN, Dosing Weight 95.455, kg, PRN Benzodiazepine Reversal, Initial dose, Start date: 06/15/17 10:49:00 FRAME COVERER, Duration: 30 day, Stop date: 07/15/17 10:48:00 C STNotes: (Same as: Romazicon) Inactive 06/15/2017 [facility] Albuterol 0.83 MG/ML Inhalant Solution 2.49 mg, Route: NEB, Q20Min, Dosing Weight 95.455, kg, PRN Wheezing, Priority: STAT, Start date: 06/15/17 10:49:00 FRAME COVERER, Duration: 30 day, Stop date: 07/15/17 10:48:00 FRAME COVERER Inactive 06/15/2017 [facility] Diphenhydramine 12.5 mg, 0.25 mL, Route: IVP, Drug form: INJ, Q6H, Dosing Weight 95.455, kg, PRN Itching, Start date: 06/15/17 10:49:00 FRAME COVERER, Duration: 30 day, Stop date: 07/15/17 10:48:00 CSTNotes: (Same as: Pilar chin) Inactive 06/15/2017 [facility] Ondansetron 4 mg, 2 mL, Route: IVP, Drug form: INJ, ONCE, Dosing Weight 95.455, kg, PRN Nausea & Vomiting, Start date: 06/15/17 10:49:00 CSTNotes: (Same as: Zofran) MEDICATION WASTE Product Size: 4 mg Product Wasted: ___ mg Inactive 06/15/2017 [facility] Meperidine 12.5 mg, 0.25 mL, Route: IVP, Drug form: INJ, Q30Min, Dosing Weight 95.455, kg, PRN Other -See Comment, For shivering, Start date: 06/15/17 10:49:00 FRAME COVERER, Duration: 2 doses or times, Stop date: Limited # of timesNotes: (Same as: Demerol) "Use Precaution in Elderly, Seizure disorders, and Renal impairment" Inactive 06/15/2017 [facility] Promethazine 6.25 mg, Route: IVPB, ONCE, Dosing Weight 95.455, kg, PRN Nausea & Vomiting, Start date: 06/15/17 10:49:00 FRAME COVERER No Longer Active 06/15/2017 [facility] Calcium Chloride 0.0014 MEQ/ML / Potassium Chloride 0.004 MEQ/ML / Sodium Chloride 0.103 MEQ/ML / Sodium Lactate 0.028 MEQ/ML Injectable Solution 1,000 mL, Rate: 125 ml/hr, Infuse over: 8 hr, Route: IV, Dosing Weight 95.455 kg, Total Volume: 1,000, Start date: 06/15/17 10:49:00 FRAME COVERER, Duration: 30 day, Stop date: 07/15/17 10:48:00 FRAME COVERER, 2.2, m2 Inactive 06/15/2017 [facility] esmolol 10 mg, 1 mL, Route: IVP, Drug form: INJ, Q5Min, Dosing Weight 95.455, kg, PRN Other -See Comment, Start date: 06/15/17 10:49:00 FRAME COVERER, Duration: 5 doses or times, Stop date: Limited # of timesNotes: (Same as: Brevibloc) Inactive 06/15/2017 [facility] Labetalol 10 mg, 2 mL, Route: IVP, Drug form: INJ, Q5Min, Dosing Weight 95.455, kg, PRN Elevated BP, Start date: 06/15/17 10:49:00 FRAME COVERER, Duration: 5 doses or times, Stop date: Limited # of timesNotes: (Same as: No rmodyne, Trandate) Push over 2 minutes Give bolus over 2-3 minutes. Inactive 06/15/2017 [facility] Hydralazine 10 mg, 0.5 mL, Route: IVP, Drug form: INJ, Q20Min, Dosing Weight 95.455, kg, PRN Elevated BP, Start date: 06/15/17 10:49:00 FRAME COVERER, Duration: 2 doses or times, Stop date: Limited # of timesNotes: (Same as: Apresoline) Push over 5 minutes Inactive 06/15/2017 [facility] Acetaminophen 1,000 mg, 2 tab, Route: PO, Drug form: TAB, ONCE, Dosing Weight 95.455, kg, PRN Pain Score 1-3, Start date: 06/15/17 10:49:00 CSTNotes: Max acetaminophen 4000 mg/day (4 gm/day). (Same as: Tylenol Extra Strength) Inactive 06/15/2017 [facility] Oxycodone 5 mg, 1 tab, Route: PO, Drug form: TAB, Q4H, Dosing Weight 95.455, kg, PRN Pain Score 4-6, Start date: 06/15/17 10:49:00 FRAME COVERER, Duration: 30 day, Stop date: 07/15/17 10:48:00 CSTNotes: (Same as: Roxicodone) Inactive 06/15/2017 [facility] glycopyrrolate (ANES) Route: IV, Drug form: INJ, ONCE, Stop date: 06/15/17 10:18:00 FRAME COVERER Inactive 06/15/2017 [facility] ondansetron (ANES) Route: IV, Drug form: INJ, ONCE, Stop date: 06/15/17 10:18:00 FRAME COVERER Inactive 06/15/2017 [facility] dexamethasone (ANES) Route: IV, Drug form: INJ, ONCE, Stop date: 06/15/17 10:18:00 FRAME COVERER Inactive 06/15/2017 [facility] neostigmine (ANES) Route: IV, Drug form: INJ, ONCE, Stop date: 06/15/17 10:18:00 FRAME COVERER Inactive 06/15/2017 [facility] lidocaine (ANES) Route: IV, Drug form: INJ, ONCE, Stop date: 06/15/17 8:14:00 FRAME COVERER Inactive 06/15/2017 [facility] rocuronium (ANES) Route: IV, Drug form: INJ, ONCE, Stop date: 06/15/17 8:14:00 FRAME COVERER Inactive 06/15/2017 [facility] acetaminophen (ANES) Route: IV, Drug form: INJ, ONCE, Stop date: 06/15/17 8:14:00 FRAME COVERER Inactive 06/15/2017 [facility] ceFAZolin (ANES) Route: IV, Drug form: INJ, ONCE, Stop date: 06/15/17 8:09:00 FRAME COVERER Inactive 06/15/2017 [facility] fentaNYL (ANES) Route: IV, Drug form: INJ, ONCE, Stop date: 06/15/17 8:09:00 FRAME COVERER Inactive 06/15/2017 [facility] propofol (ANES) Route: IV, Drug form: INJ, ONCE, Stop date: 06/15/17 8:09:00 FRAME COVERER Inactive 06/15/2017 [facility] midazolam (ANES) Route: IV, Drug form: SOLN, ONCE, Stop date: 06/15/17 8:04:00 FRAME COVERER Inactive 06/15/2017 [facility] Lactated Ringers Injection IV (ANES) 1000 mL Route: IV, Total Volume: 1,000, Start date: 06/15/17 7:20:00 FRAME COVERER, Stop date: 06/15/17 8:20:00 FRAME COVERER Inactive 06/15/2017 [facility] Lovenox 40 mg, SUB-Q, Daily, 0 Refill(s) No Longer Active 06/15/2017 [facility] ceFAZolin + sterile water 20 mL 2 gm, Route: IV, ONCALL, Start date: 06/15/17 7:00:00 FRAME COVERER, Duration: 1 day, Stop date: 06/16/17 6:59:00 FRAME COVERER, ABX Indication: Surgical ProphylaxisNotes: (Same As: Franklin Scales) MEDICATION WASTE Product Size: 1000 mg Product Wasted: ___ mg Inactive 06/15/2017 [facility] Albuterol 0.833 MG/ML / Ipratropium Romulus 0.167 MG/ML Inhalant Solution 3 mL, Route: NEB, Drug Form: SOLN, Dosing Weight 95.455, kg, ONCE, STAT, Start date: 06/15/17 6:13:00 FRAME COVERER, Stop date: 06/15/17 6:13:00 CSTNotes: (Same as: Duoneb) Inactive 06/15/2017 [facility] Calcium Chloride 0.0014 MEQ/ML / Potassium Chloride 0.004 MEQ/ML / Sodium Chloride 0.103 MEQ/ML / Sodium Lactate 0.028 MEQ/ML Injectable Solution 1,000 mL, Rate: 25 ml/hr, Infuse over: 40 hr, Route: IV, Dosing Weight 95.455 kg, Total Volume: 1,000, Start date: 06/15/17 6:13:00 FRAME COVERER, Duration: 30 day, Stop date: 12/16/17 6:12:00 FRAME COVERER, 2.2, m2 Inactive 06/15/2017 [facility] meloxicam 15 mg oral tablet 15 mg, PO, Daily, 0 Refill(s) No Longer Active 06/15/2017 [facility] Amlodipine 5 mg, PO, Daily, 0 Refill(s) Active 06/15/2017 [facility] Multiple Vitamins oral tablet 1 tab, PO, Daily Active 06/07/2017 [facility] cinnamon 500 mg oral capsule 1,000 mg=2 cap, PO, BID, # 100 cap, 0 Refill(s) Active 06/07/2017 [facility] allopurinol 300 mg oral tablet 300 mg=1 tab, PO, Daily Active 06/07/2017 [facility] tamsulosin 0.4 mg oral capsule 0.4 mg=1 cap, PO, Daily Active 06/07/2017 [facility] aspirin 81 mg tablet, enteric coated 81 mg=1 tab, PO, Daily Active 06/07/2017 [facility] clopidogrel 75 mg oral tablet 75 mg=1 tab, PO, Daily No Longer Active 06/07/2017 [facility] Allergies, Adverse Reactions, Alerts No Known Medication Allergies Immunizations Immunization Date Given Site Status Last Updated Comments Source pneumococcal 23-valent vaccine 06/11/2013 Left Deltoid completed [facility], [facility] Prisc[place] Results Order Name Results Value Reference Range Date Interpretation Comments Source CHEM PANEL eGFR 98 09/08/2017 Result Comment: The eGFR is calculated using the CKD-EPI formula. In most young, healthy individuals the eGFR will be >90 mL/min/1.73m2. The eGFR declines with age. An eGFR of 60-89 may be normal in some populations, particularly the elderly, for whom the CKD-EPI formula has not been extensively validated. Use of the eGFR is not recommended in the following populations:

Individuals with unstable creatinine concentrations, including patients and those with serious co-morbid conditions.

Patients with extremes in muscle mass or diet.

The data above are obtained from the National Kid[employer] Disease Education Program (NKDEP) which additionally recommends that when the eGFR is used in patients with extremes of body mass index for purposes of drug dosing, the eGFR should be multiplied by the estimated BMI. [facility] CHEM PANEL Chloride Lvl 102 95 - 109 09/08/2017 [facility] CHEM PANEL CO2 22 24 - 32 09/08/2017 [facility] CHEM PANEL Calcium Lvl 8.5 8.5 - 10.5 09/08/2017 [facility] CHEM PANEL BUN 12 7 - 22 09/08/2017 [facility] CHEM PANEL Sodium Lvl 135 135 - 145 09/08/2017 [facility] CHEM PANEL Potassium Lvl 4.5 3.5 - 5.1 09/08/2017 [facility] CHEM PANEL Creatinine Lvl 0.70 0.50 - 1.40 09/08/2017 [facility] CHEM PANEL Glucose Lvl 170 70 - 99 09/08/2017 [facility] CHEM PANEL AGAP 15.5 10.0 - 20.0 09/08/2017 [facility] HEMATOLOGY Lymphocytes 12.9 20.0 - 40.0 09/08/2017 [facility] HEMATOLOGY Segs 75.2 45.0 - 75.0 09/08/2017 [facility] HEMATOLOGY Lymphocytes # 1.9 1.0 - 5.5 09/08/2017 [facility] HEMATOLOGY Segs-Bands # 10.8 1.5 - 8.1 09/08/2017 [facility] HEMATOLOGY Basophils 0.9 0.0 - 1.0 09/08/2017 [facility] HEMATOLOGY Eosinophils 2.1 0.0 - 4.0 09/08/2017 [facility] HEMATOLOGY Monocytes 8.9 2.0 - 12.0 09/08/2017 [facility] HEMATOLOGY Basophils # 0.1 0.0 - 0.2 09/08/2017 [facility] HEMATOLOGY Eosinophils # 0.3 0.0 - 0.5 09/08/2017 [facility] HEMATOLOGY Monocytes # 1.3 0.0 - 0.8 09/08/2017 [facility] HEMATOLOGY MPV 8.2 7.4 - 10.4 09/08/2017 [facility] HEMATOLOGY Platelet 302 133 - 450 09/08/2017 [facility] HEMATOLOGY Hgb 9.0 14.0 - 18.0 09/08/2017 [facility] HEMATOLOGY RBC 2.95 4.70 - 6.10 09/08/2017 [facility] HEMATOLOGY MCH 30.6 27.0 - 31.0 09/08/2017 [facility] HEMATOLOGY Hct 26.6 42.0 - 54.0 09/08/2017 [facility] HEMATOLOGY MCV 90.0 80.0 - 94.0 09/08/2017 [facility] HEMATOLOGY WBC 14.4 3.7 - 10.4 09/08/2017 [facility] HEMATOLOGY RDW 15.1 11.5 - 14.5 09/08/2017 [facility] HEMATOLOGY MCHC 34.0 32.0 - 36.0 09/08/2017 [facility] CHEM PANEL eGFR 97 09/07/2017 Result Comment: The eGFR is calculated using the CKD-EPI formula. In most young, healthy individuals the eGFR will be >90 mL/min/1.73m2. The eGFR declines with age. An eGFR of 60-89 may be normal in some populations, particularly the elderly, for whom the CKD-EPI formula has not been extensively validated. Use of the eGFR is not recommended in the following populations:

Individuals with unstable creatinine concentrations, including patients and those with serious co-morbid conditions.

Patients with extremes in muscle mass or diet.

The data above are obtained from the National Kidney Disease Education Program (NKDEP) which additionally recommends that when the eGFR is used in patients with extremes of body mass index for purposes of drug dosing, the eGFR should be multiplied by the estimated BMI. [facility] CHEM PANEL Potassium Lvl 4.5 3.5 - 5.1 09/07/2017 [facility] CHEM PANEL CO2 25 24 - 32 09/07/2017 [facility] CHEM PANEL Calcium Lvl 8.7 8.5 - 10.5 09/07/2017 [facility] CHEM PANEL Chloride Lvl 101 95 - 109 09/07/2017 [facility] CHEM PANEL Glucose Lvl 197 70 - 99 09/07/2017 [facility] CHEM PANEL Creatinine Lvl 0.71 0.50 - 1.40 09/07/2017 [facility] CHEM PANEL BUN 10 7 - 22 09/07/2017 [facility] CHEM PANEL Sodium Lvl 136 135 - 145 09/07/2017 [facility] CHEM PANEL AGAP 14.5 10.0 - 20.0 09/07/2017 [facility] HEMATOLOGY Lymphocytes # 1.7 1.0 - 5.5 09/07/2017 [facility] HEMATOLOGY Segs-Bands # 9.3 1.5 - 8.1 09/07/2017 [facility] HEMATOLOGY Eosinophils # 0.2 0.0 - 0.5 09/07/2017 [facility] HEMATOLOGY Monocytes # 1.0 0.0 - 0.8 09/07/2017 [facility] HEMATOLOGY Basophils 0.3 0.0 - 1.0 09/07/2017 [facility] HEMATOLOGY Eosinophils 1.9 0.0 - 4.0 09/07/2017 [facility] HEMATOLOGY Monocytes 8.3 2.0 - 12.0 09/07/2017 [facility] HEMATOLOGY Lymphocytes 13.7 20.0 - 40.0 09/07/2017 [facility] HEMATOLOGY Segs 75.8 45.0 - 75.0 09/07/2017 [facility] HEMATOLOGY PTT 42.4 22.9 - 35.8 09/07/2017 [facility] HEMATOLOGY MCV 89.5 80.0 - 94.0 09/07/2017 [facility] HEMATOLOGY Hct 26.4 42.0 - 54.0 09/07/2017 [facility] HEMATOLOGY WBC 12.2 3.7 - 10.4 09/07/2017 [facility] HEMATOLOGY Hgb 9.0 14.0 - 18.0 09/07/2017 [facility] HEMATOLOGY RBC 2.95 4.70 - 6.10 09/07/2017 [facility] HEMATOLOGY MCH 30.4 27.0 - 31.0 09/07/2017 [facility] HEMATOLOGY MCHC 34.0 32.0 - 36.0 09/07/2017 [facility] HEMATOLOGY Platelet 295 133 - 450 09/07/2017 [facility] HEMATOLOGY RDW 15.4 11.5 - 14.5 09/07/2017 [facility] HEMATOLOGY MPV 8.1 7.4 - 10.4 09/07/2017 [facility] HEMATOLOGY Monocytes 8.3 2.0 - 12.0 09/06/2017 [facility] HEMATOLOGY Eosinophils 2.0 0.0 - 4.0 09/06/2017 [facility] HEMATOLOGY Segs-Bands # 8.2 1.5 - 8.1 09/06/2017 [facility] HEMATOLOGY Basophils 0.3 0.0 - 1.0 09/06/2017 [facility] HEMATOLOGY Lymphocytes # 2.0 1.0 - 5.5 09/06/2017 [facility] HEMATOLOGY Eosinophils # 0.2 0.0 - 0.5 09/06/2017 [facility] HEMATOLOGY Monocytes # 0.9 0.0 - 0.8 09/06/2017 [facility] HEMATOLOGY Segs 72.0 45.0 - 75.0 09/06/2017 [facility] HEMATOLOGY Lymphocytes 17.4 20.0 - 40.0 09/06/2017 [facility] HEMATOLOGY MPV 7.9 7.4 - 10.4 09/06/2017 [facility] HEMATOLOGY MCH 30.8 27.0 - 31.0 09/06/2017 [facility] HEMATOLOGY RDW 14.8 11.5 - 14.5 09/06/2017 [facility] HEMATOLOGY MCHC 34.9 32.0 - 36.0 09/06/2017 [facility] HEMATOLOGY Platelet 236 133 - 450 09/06/2017 [facility] HEMATOLOGY Hgb 8.1 14.0 - 18.0 09/06/2017 [facility] HEMATOLOGY RBC 2.64 4.70 - 6.10 09/06/2017 [facility] HEMATOLOGY WBC 11.3 3.7 - 10.4 09/06/2017 [facility] HEMATOLOGY MCV 88.4 80.0 - 94.0 09/06/2017 [facility] HEMATOLOGY Hct 23.3 42.0 - 54.0 09/06/2017 [facility] HEMATOLOGY PTT 60.5 22.9 - 35.8 09/06/2017 [facility] HEMATOLOGY Basophils # 0.1 0.0 - 0.2 09/05/2017 [facility] HEMATOLOGY PTT 48.7 22.9 - 35.8 09/05/2017 [facility] ELECTROLYTES AGAP 8.1 10.0 - 20.0 09/04/2017 [facility] ELECTROLYTES Calcium Lvl 8.5 8.5 - 10.5 09/04/2017 [facility] ELECTROLYTES eGFR 103 09/04/2017 Result Comment: The eGFR is calculated using the CKD-EPI formula. In most young, healthy individuals the eGFR will be >90 mL/min/1.73m2. The eGFR declines with age. An eGFR of 60-89 may be normal in some populations, particularly the elderly, for whom the CKD-EPI formula has not been extensively validated. Use of the eGFR is not recommended in the following populations:

Individuals with unstable creatinine concentrations, including patients and those with serious co-morbid conditions.

Patients with extremes in muscle mass or diet.

The data above are obtained from the National Kidney Disease Education Program (NKDEP) which additionally recommends that when the eGFR is used in patients with extremes of body mass index for purposes of drug dosing, the eGFR should be multiplied by the estimated BMI. [facility] ELECTROLYTES Creatinine Lvl 0.62 0.50 - 1.40 09/04/2017 [facility] ELECTROLYTES Sodium Lvl 139 135 - 145 09/04/2017 [facility] ELECTROLYTES Potassium Lvl 4.1 3.5 - 5.1 09/04/2017 [facility] ELECTROLYTES Chloride Lvl 104 95 - 109 09/04/2017 [facility] ELECTROLYTES CO2 31 24 - 32 09/04/2017 [facility] ELECTROLYTES Glucose Lvl 157 70 - 99 09/04/2017 [facility] ELECTROLYTES BUN 12 7 - 22 09/04/2017 [facility] CHEM PANEL Ammonia 34.0 <=45.0 uMol/L 09/02/2017 [facility] HEMATOLOGY INR 1.14 0.85 - 1.17 09/02/2017 [facility] HEMATOLOGY PT 14.6 12.0 - 14.7 09/02/2017 [facility] URINE AND STOOL UA Urobilinogen <=1.0 mg/dL 0.1 - 1.0 09/02/2017 [facility] URINE AND STOOL UA Sq Epi None Seen 09/02/2017 [facility] URINE AND STOOL UA Hyal Cast 7 0 - 2 09/02/2017 [facility] URINE AND STOOL UA Mucus Few /LPF None Seen /LPF 09/02/2017 [facility] URINE AND STOOL UA Bacteria Occasional /HPF None Seen /HPF 09/02/2017 [facility] URINE AND STOOL UA RBC 18 0 - 2 09/02/2017 [facility] URINE AND STOOL UA WBC 3 0 - 5 09/02/2017 [facility] URINE AND STOOL UA Nitrite Negative (09/02/17 3:15 PM) Negative 09/02/2017 [facility] URINE AND STOOL UA Leuk Est Negative (09/02/17 3:15 PM) Negative 09/02/2017 [facility] URINE AND STOOL UA Bili Negative *NA* (09/02/17 3:15 PM) Negative 09/02/2017 [facility] URINE AND STOOL UA Blood Moderate *ABN* (09/02/17 3:15 PM) Negative 09/02/2017 [facility] URINE AND STOOL UA Ketones Negative mg/dL Negative mg/dL 09/02/2017 [facility] URINE AND STOOL UA Protein 20 mg/dL Negative mg/dL 09/02/2017 [facility] URINE AND STOOL UA Glucose Negative mg/dL Negative mg/dL 09/02/2017 [facility] URINE AND STOOL UA pH 5.0 5.0 - 8.0 09/02/2017 [facility] URINE AND STOOL UA Spec Grav 1.018 <=1.030 09/02/2017 [facility] URINE AND STOOL UA Color Yellow *NA* (09/02/17 3:15 PM) Yellow 09/02/2017 [facility] URINE AND STOOL UA Turbidity Clear (09/02/17 3:15 PM) Clear 09/02/2017 [facility] BLOOD BANK RESULTS RBC product Product available (09/02/17 11:56 AM) 09/02/2017 [facility] BLOOD BANK RESULTS Antibody Scrn Negative (09/02/17 9:38 AM) 09/02/2017 [facility] BLOOD BANK RESULTS ABO/Rh O POS 09/02/2017 [facility] BLOOD BANK RESULTS RBC product Product available (09/02/17 8:37 AM) 09/02/2017 [facility] BLOOD BANK RESULTS Antibody Scrn Negative (08/31/17 12:52 AM) 08/31/2017 [facility] BLOOD BANK RESULTS ABO/Rh O POS 08/31/2017 [facility] HEMATOLOGY Basophils # 0.1 0.0 - 0.2 08/29/2017 [facility] BLOOD BANK RESULTS Antibody Scrn Negative (08/28/17 10:53 AM) 08/28/2017 [facility] BLOOD BANK RESULTS ABO/Rh O POS 08/28/2017 [facility] HEMATOLOGY INR 0.99 0.85 - 1.17 08/28/2017 [facility] HEMATOLOGY PT 13.1 12.0 - 14.7 08/28/2017 [facility] HEMATOLOGY Sed Rate 18 0 - 15 08/28/2017 [facility] CHEM PANEL eGFR 63 06/15/2017 Result Comment: The eGFR is calculated using the CKD-EPI formula. In most young, healthy individuals the eGFR will be >90 mL/min/1.73m2. The eGFR declines with age. An eGFR of 60-89 may be normal in some populations, particularly the elderly, for whom the CKD-EPI formula has not been extensively validated. Use of the eGFR is not recommended in the following populations:

Individuals with unstable creatinine concentrations, including patients and those with serious co-morbid conditions.

Patients with extremes in muscle mass or diet.

The data above are obtained from the National Kidney Disease Education Program (NKDEP) which additionally recommends that when the eGFR is used in patients with extremes of body mass index for purposes of drug dosing, the eGFR should be multiplied by the estimated BMI. [place] CHEM PANEL ALANINE AMINOTRANSFERASE 40 0 - 65 06/15/2017 [place] CHEM PANEL ASPARTATE TRANSAMINASE 22 0 - 37 06/15/2017 [place] CHEM PANEL Alk Phos 73 39 - 136 06/15/2017 [place] CHEM PANEL Albumin Lvl 3.6 3.5 - 5.0 06/15/2017 [place] CHEM PANEL Bili Total 0.5 0.2 - 1.3 06/15/2017 [place] CHEM PANEL Chloride Lvl 102 95 - 109 06/15/2017 [place] CHEM PANEL Potassium Lvl 4.5 3.5 - 5.1 06/15/2017 [place] CHEM PANEL Sodium Lvl 134 135 - 145 06/15/2017 [place] CHEM PANEL BUN 13 7 - 22 06/15/2017 [place] CHEM PANEL Glucose Lvl 205 70 - 99 06/15/2017 [place] CHEM PANEL Creatinine Lvl 1.18 0.50 - 1.40 06/15/2017 [place] CHEM PANEL Calcium Lvl 8.5 8.5 - 10.5 06/15/2017 [place] CHEM PANEL CO2 26 24 - 32 06/15/2017 [place] CHEM PANEL Total Protein 7.0 6.4 - 8.4 06/15/2017 [place] CHEM PANEL A/G Ratio 1.1 0.7 - 1.6 06/15/2017 [facility] CHEM PANEL Globulin 3.4 2.7 - 4.2 06/15/2017 [facility] CHEM PANEL AGAP 10.5 10.0 - 20.0 06/15/2017 [facility] CHEM PANEL B/C Ratio 11 6 - 25 06/15/2017 [facility] CHEM PANEL Phosphorus 2.6 2.5 - 4.5 06/15/2017 [facility] CHEM PANEL Magnesium Lvl 1.8 1.8 - 2.4 06/15/2017 [facility] HEMATOLOGY Lymphocytes 5.8 20.0 - 40.0 06/15/2017 [facility] HEMATOLOGY Monocytes 1.1 2.0 - 12.0 06/15/2017 [facility] HEMATOLOGY Eosinophils 0.1 0.0 - 4.0 06/15/2017 [facility] HEMATOLOGY Basophils 0.1 0.0 - 1.0 06/15/2017 [facility] HEMATOLOGY Segs-Bands # 12.4 1.5 - 8.1 06/15/2017 [facility] HEMATOLOGY Monocytes # 0.1 0.0 - 0.8 06/15/2017 [facility] HEMATOLOGY Lymphocytes # 0.8 1.0 - 5.5 06/15/2017 [facility] HEMATOLOGY Segs 92.9 45.0 - 75.0 06/15/2017 [facility] HEMATOLOGY RBC X 10x6 4.65 4.70 - 6.10 06/15/2017 [facility] HEMATOLOGY Hgb 14.5 14.0 - 18.0 06/15/2017 [facility] HEMATOLOGY WBC X 10x3 13.4 3.7 - 10.4 06/15/2017 [facility] HEMATOLOGY MCH 31.2 27.0 - 31.0 06/15/2017 [facility] HEMATOLOGY MCV 91.5 80.0 - 94.0 06/15/2017 [facility] HEMATOLOGY Hct 42.5 42.0 - 54.0 06/15/2017 [facility] HEMATOLOGY RDW 13.0 11.5 - 14.5 06/15/2017 [facility] HEMATOLOGY MCHC 34.1 32.0 - 36.0 06/15/2017 [facility] HEMATOLOGY Platelet 259 133 - 450 06/15/2017 [facility] HEMATOLOGY MPV 7.8 7.4 - 10.4 06/15/2017 [facility] ELECTROLYTES AGAP 11.5 10.0 - 20.0 06/07/2017 [facility] ELECTROLYTES eGFR 77 06/07/2017 Result Comment: The eGFR is calculated using the CKD-EPI formula. In most young, healthy individuals the eGFR will be >90 mL/min/1.73m2. The eGFR declines with age. An eGFR of 60-89 may be normal in some populations, particularly the elderly, for whom the CKD-EPI formula has not been extensively validated. Use of the eGFR is not recommended in the following populations:

Individuals with unstable creatinine concentrations, including patients and those with serious co-morbid conditions.

Patients with extremes in muscle mass or diet.

The data above are obtained from the National Kidney Disease Education Program (NKDEP) which additionally recommends that when the eGFR is used in patients with extremes of body mass index for purposes of drug dosing, the eGFR should be multiplied by the estimated BMI. [facility] ELECTROLYTES Glucose Lvl 117 70 - 99 06/07/2017 [facility] ELECTROLYTES Calcium Lvl 9.3 8.5 - 10.5 06/07/2017 [facility] ELECTROLYTES Chloride Lvl 99 95 - 109 06/07/2017 [facility] ELECTROLYTES CO2 28 24 - 32 06/07/2017 [facility] ELECTROLYTES Potassium Lvl 4.5 3.5 - 5.1 06/07/2017 [facility] ELECTROLYTES Sodium Lvl 134 135 - 145 06/07/2017 [facility] ELECTROLYTES Creatinine Lvl 1.01 0.50 - 1.40 06/07/2017 [facility] ELECTROLYTES BUN 15 7 - 22 06/07/2017 [facility] HEMATOLOGY Hct 44.8 42.0 - 54.0 06/07/2017 [facility] HEMATOLOGY Hgb 15.4 14.0 - 18.0 06/07/2017 [facility] SPECIAL CHEMISTRY Hgb A1C 6.2 <=5.6 % 06/07/2017 [facility] URINE AND STOOL UA Bacteria None Seen (06/07/17 9:48 AM) None Seen 06/07/2017 [facility] URINE AND STOOL UA RBC None Seen (06/07/17 9:48 AM) 0 - 2 06/07/2017 [facility] URINE AND STOOL UA WBC None Seen (06/07/17 9:48 AM) None Seen 06/07/2017 [facility] URINE AND STOOL UA Sq Epi Rare /LPF Few /LPF 06/07/2017 [facility] URINE AND STOOL Micro? Performed (06/07/17 9:48 AM) 06/07/2017 [facility] URINE AND STOOL UA Blood Negative (06/07/17 9:48 AM) Negative 06/07/2017 [facility] URINE AND STOOL UA Urobilinogen 0.2 0.1 - 1.0 06/07/2017 [place] URINE AND STOOL UA Nitrite Negative (06/07/17 9:48 AM) Negative 06/07/2017 [place] URINE AND STOOL UA Leuk Est Negative (06/07/17 9:48 AM) Negative 06/07/2017 [place] URINE AND STOOL UA Spec Grav 1.010 <=1.030 06/07/2017 [place] URINE AND STOOL UA Turbidity Clear (06/07/17 9:48 AM) Clear 06/07/2017 [facility] URINE AND STOOL UA Color Yellow *NA* (06/07/17 9:48 AM) Yellow 06/07/2017 [facility] URINE AND STOOL UA Protein Negative mg/dL Negative mg/dL 06/07/2017 [facility] URINE AND STOOL UA pH 6.0 5.0 - 8.0 06/07/2017 [facility] URINE AND STOOL UA Bili Negative *NA* (06/07/17 9:48 AM) Negative 06/07/2017 [facility] URINE AND STOOL UA Ketones Negative mg/dL Negative mg/dL 06/07/2017 [facility] URINE AND STOOL UA Glucose Negative mg/dL Negative mg/dL 06/07/2017 [facility] Pathology Reports No Data Provided for This Section Diagnostic Reports Report Value Date Source Brain wo contrast CT EXAM: CT HEAD WITHOUT CONTRAST DATE: 09/02/2017 2:55 PM FRAME COVERER INDICATION: 67 years old Male patient with history of Drowsiness - r/o bleed. Patient on hep gtt. TECHNIQUE: Multiple axial images were obtained through the head from vertex to the skull base. Axial bone algorithm reconstruction images are provided. COMPARISON: None. FINDINGS: This examination is limited by motion artifacts. No acute intracranial hemorrhage is identified. Mild global brain volume loss with corresponding dilatation of the ventricles. Moderate periventricular and subcortical white matter hypodensities, nonspecific and most commonly secondary to chronic microvascular ischemic changes. No parenchymal mass, mass effect or midline shift is present. No pathologic extra axial fluid is identified. Focus of chronic lacunar infarct involving the anterior limb of right internal capsule. IMPRESSION: 1. Limited motion degraded exam. No CT evidence of acute intracranial abnormality limitation of exam. If there is persistent clinical concern, consider MRI. 2. Focus of chronic lacunar infarct in the right internal capsule. Moderate nonspecific white matter changes most commonly secondary to chronic small vessel ischemia. Sensitivity of CT scan is limited for detection of acute infarct in such a white matter background. 09/02/2017 [facility] Abdomen AP DX EXAM: XR ABDOMEN 1 VIEW DATE: 09/02/2017 5:24 AM FRAME COVERER INDICATION: - abd distention. ADDITIONAL INFORMATION: None. COMPARISON: None. TECHNIQUE: Supine AP views of the abdomen. FINDINGS: Lines and tubes: None. Lower thorax: Unremarkable where visualized. Bowel: The stomach is moderately gaseously distended. No dilated or distended small bowel loops are seen. Gas-filled nondilated loops of sigmoid colon as well as nondilated stool and gas filled loops of remainder of the colon are noted.. Solid organs: No abnormal mass or organomegaly seen. A 1.0 cm in maximal diameter calcific density is projected over the left midabdomen, possibly a renal calculus. Bones: There is mild to moderate dextroscoliosis of the lumbar spine with multilevel spondylosis and disc space narrowing with slight right lateral listhesis of L3 on L4. IMPRESSION: 1. Moderate gaseous distention of the stomach. Mechanical or functional obstruction versus ileus is not excluded. 2. No large bowel or small bowel obstruction is seen. 3. Nonspecific 1.0 cm calcification over the left midabdomen, possibly a renal calculus. This finding may be further assessed with renal ultrasound or renal stone CT. 09/02/2017 [facility] Chest 2 views DX Chest 2 views DX 08/25/2017 12:57 PM FRAME COVERER Ordering Physician: Jenelle Yanes MD CLINICAL HISTORY: - cardiac clearance for HBO; TECHNIQUE: PA and lateral upright views of the chest were obtained. COMPARISON: 06/06/2013. FINDINGS: No focal consolidation or pleural effusion is seen. No radiographically detectable pneumothorax is present. The cardiomediastinal silhouette and its contours are normal. No acute osseous abnormality is evident. IMPRESSION: No acute radiographic abnormality of the chest. SL: [id number] 08/25/2017 [facility] Lower wo contrast uni CT EXAMINATION: CT of the right lower extremity without contrast HISTORY: M19.071 Primary osteoarthritis, right ankle and foot; right ankle pain COMPARISON: Radiographs of the right ankle dated 11/11/2014 are reviewed. TECHNIQUE: Contiguous transaxial CT images of the right knee and contiguous transaxial CT images of the right ankle and foot are performed without intravenous contrast according to the [facility] protocol. Coronal and sagittal reformatted images of the right knee and coronal and sagittal reformatted images of the right ankle are performed. 3-D reconstructions of the right knee and right ankle are also performed. Total DLP is 330 mGy-cm. This exam was performed according to our departmental dose-optimization program which includes automated exposure control, adjustment of the mA and/or kV according to patient size and/or use of iterative reconstruction technique. FINDINGS: RIGHT KNEE: Bone and Joint Spaces: There are no acute fractures or dislocations. There is mild medial and patellofemoral compartment osteoarthritis with mild asymmetric joint space narrowing, subchondral sclerosis, and subchondral cyst formation. There is no right knee effusion. Ligaments: The cruciate and collateral ligaments are grossly intact. Extensor mechanism: The extensor mechanism is intact. Soft Tissues: There is no Hargrove's cyst. There is normal attenuation and muscle bulk of the knee musculature. Other: Arterial atherosclerotic calcifications are noted. RIGHT ANKLE AND FOOT: Bone and Joint Spaces: There are no acute fractures or dislocations. There is an old, nonunited fracture involving the anterior process of the calcaneus. There is severe tibiotalar osteoarthritis with severe asymmetric joint space narrowing, foci of subchondral sclerosis and cyst formation, and osteophytosis. There is also mild polyarticular osteoarthritis involving the talonavicular, subtalar, calcaneocuboid, first metatarsophalangeal, and first metatarsal- sesamoid joints. There is a large os trigonum versus loose body along the posterior aspect of the tibiotalar and posterior subtalar joints. There are foci of heterotopic ossification within the region of the anterior/inferior tibiofibular and anterior talofibular ligaments, as well as, within the region of the deltoid ligament complex. Muscles and Tendons: Medially, the posterior tibialis, flexor digitorum longus, and flexor hallucis longus tendons are grossly intact. Laterally, the peroneal tendons are grossly intact. There is mild diffuse enlargement of the anterior tibialis tendon suggesting underlying anterior tibialis tendinopathy. The anterior ankle extensors appear grossly intact. The Achilles tendon is normal. 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 Arterial atherosclerotic calcifications are noted. IMPRESSION: 1. Prophe[facility] CT protocol examination of the right knee, ankle, and foot for preoperative planning. 2. Mild medial and patellofemoral compartment osteoarthritis of the right knee with mild asymmetric joint space narrowing, subchondral sclerosis, and subchondral cyst formation. 3. Severe right tibiotalar osteoarthritis and mild polyarticular osteoarthritis of the right hindfoot, midfoot, and forefoot as described above. 4. Mild diffuse enlargement of the right anterior tibialis tendon suggesting underlying anterior tibialis tendinopathy. 5. 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 05/10/2017 [facility] Ankle 3 views DX RIGHT ANKLE 3 VIEWS: There is marked narrowing of the talotibial joint with flattening and sclerosis of the articular surfaces. There is also sclerotic change involving articular or surfaces in the medial and lateral plafond. The tibiofibular synchondrosis appears intact. The subtalar joint and the midfoot joints appear within normal limits. There is no fracture or dislocation. Ossifications adjacent to the tips of the lateral and medial malleoli are noted suggesting old tendinopathy. Arterial and venous calcifications are noted. The soft tissues are otherwise unremarkable. IMPRESSION: Severe degenerative changes in the talotibial joint without other acute radiographic abnormalities of the right ankle. SL:13 11/11/2014 [facility] Consultation Notes No Data Provided for This Section Discharge Summaries No Data Provided for This Section History and Physicals No Data Provided for This Section Vital Signs Vital Sign Value Date Comments Source Systolic (mm Hg) 129 09/08/2017 [facility] Diastolic (mm Hg) 77 09/08/2017 [facility] Respitory Rate 18 09/08/2017 [facility] Heart Rate 64 09/08/2017 [facility] Temperature Oral (F) 98.1 F 09/08/2017 [facility] Temperature Oral (F) 98.1 F 09/08/2017 [facility] Systolic (mm Hg) 133 09/08/2017 [facility] Diastolic (mm Hg) 73 09/08/2017 [facility] Respitory Rate 18 09/08/2017 [facility] Heart Rate 79 09/08/2017 [facility] Temperature Oral (F) 98.6 F 09/08/2017 [facility] Heart Rate 66 09/08/2017 [facility] Respitory Rate 18 09/08/2017 [facility] Systolic (mm Hg) 110 09/08/2017 [facility] Diastolic (mm Hg) 60 09/08/2017 [facility] Weight 95.455 08/28/2017 [facility] BMI Calculated 30.2 08/28/2017 [facility] Height 177.8 cm 08/28/2017 [facility] BMI Calculated 30.2 08/28/2017 [facility] Weight 95.455 08/28/2017 [facility] Height 177.8 cm 08/28/2017 [facility] Systolic (mm Hg) 171 06/16/2017 [facility] Diastolic (mm Hg) 80 06/16/2017 [facility] Heart Rate 61 06/16/2017 [facility] Respitory Rate 18 06/16/2017 [facility] Temperature Oral (F) 98.3 F 06/16/2017 [facility] Temperature Oral (F) 98.0 F 06/16/2017 [facility] Systolic (mm Hg) 135 06/16/2017 [facility] Diastolic (mm Hg) 78 06/16/2017 [facility] Heart Rate 65 06/16/2017 [facility] Respitory Rate 18 06/16/2017 [facility] Heart Rate 62 06/16/2017 [facility] Respitory Rate 18 06/16/2017 [facility] Systolic (mm Hg) 139 06/16/2017 [facility] Diastolic (mm Hg) 76 06/16/2017 [facility] Temperature Oral (F) 97.6 F 06/16/2017 [facility] BMI Calculated 29.35 06/07/2017 [facility] Height 180.34 cm 06/07/2017 [facility] Weight 95.455 06/07/2017 [facility] Encounters Location Location Details Encounter Type Encounter Number Reason For Visit Attending Provider ADM Date DC Date Status Source OD [id number] 724.2 - BETHEL DOYLE JR 11/08/2011 Active [facility] [id number] Altaf Lira 11/11/2014 11/12/2014 [facility] [place] [facility] [id number] Elvis Gauvain 05/10/2017 05/11/2017 [facility] [place] [facility] Inpatient [id number] Tracey Sarabiaserafin 06/15/2017 06/16/2017 [facility] Wound Care [id number] Jenelle Joaquín 08/18/2017 09/17/2017 [facility] Outpatient [id number] Jenelle Joaquín 08/25/2017 08/26/2017 [facility] Inpatient [id number] Elvis Gauvain 08/28/2017 09/09/2017 [facility] [place] OP Therapy Patients [id number] Elvis Gauvain 12/04/2017 01/03/2018 [facility] [place] [facility] [place] [facility] [id number] Elvis Gauvain 01/03/2018 02/02/2018 [facility] [place] [facility] [place] [facility] Patients [id number] Elvis Gauvain 02/02/2018 03/04/2018 [facility] [place] [facility] [place] [facility] Patients [id number] Elvis Gauvain 03/07/2018 04/06/2018 [facility] [place] [facility] Outpatient [id number] [facility]Y [facility] [place] [id number] 250 - DIABETES MELLIT RADHA DOYLE JR Cancel [facility] [place] Procedures Procedure Code Date Perfomer Comments Source Colonoscopy [id number] [facility] Esophagogastroduodenoscopy [id number] [facility] Insertion of coronary artery stent [id number] [facility] Operation [id number] [facility] Colonoscopy [id number] [facility] [place] Esophagogastroduodenoscopy [id number] [facility] [place] Insertion of coronary artery stent [id number] [facility] [place] Colonoscopy [id number] [facility] [place] Esophagogastroduodenoscopy [id number] [facility] [place] Insertion of coronary artery stent [id number] [facility] [place] Operation [id number] [facility] [place] Colonoscopy [id number] [facility] Esophagogastroduodenoscopy [id number] [facility] Insertion of coronary artery stent [id number] [facility] Operation [id number] [facility] Colonoscopy [id number] [facility] Esophagogastroduodenoscopy [id number] [facility] Insertion of coronary artery stent [id number] [facility] Operation [id number] [facility] Assessment and Plan Assessment and Plan Date Source Extracted from:Title: Progress Note Author: Prince Leanne Quiroz MD Date: 09/08/17 Patient is a 67-year-old malestatus post right ankle replacement who presented to the hospital forwound dehiscence. He underwent I&D 1.Wound dehiscence POD #8 s/p R ankle I&D, poly exchange, and radial forearm free flap - Doing well. Dressings will be managed by PRS - Elevate R ankle at all times - Gentle ankle PROM is ok, but NWB per PRS protocol - Currently on lovenox for DVT ppx. - PLAN: PO cipro for 6 weeks for pseudomonas infection.Follow up with Dr. Ellis in 1-2 weeks after discharge. Please call [phone]. Patient has been cleared by bothPRS and physical therapy. He will be discharge home tomorrow once all the equipment have been delivered by home health services - [place] Rx left in chart by Dr. Ellis . 1-2 tabs Q 4-6 PRN pain 2.Acute blood loss anemia Today's hemoglobin is 9.0. Transfuse if hemoglobin is less than 7 3.Acute pain Pain iscontrolled 4.Insomnia Continue melatonin at bedtime 5.Intractable hiccups Resolved 6.HTN (hypertension) Blood pressure is controlled for the most part Continue lisinopril andCoreg at current dose 7.CAD (coronary artery disease) Continue aspirin, atorvastatin, Coreg, and lisinopril 8.Anemia of chronic disease We will manage his problem #2 9.Gout Continue allopurinol 300 mg daily 10.Type 2 diabetes mellitus with hyperglycemia Blood glucose is controlled with current regimen 11.Preop examination Done on admission Lovenox DC home with home health tomorrow Extracted from:Title: Consult Note Author: Dasha Stewart MD Date: 08/28/17 67 yo M currently s/p R total ankle replacement was admitted this AM for management of wound dehiscence. 1.HTN (hypertension) hold home amlodipine. start coreg/lisinopril. hydralazine prn for SBP>180 2.Diabetes ssi and accuchecks. hold home metformin. monitor BG. 3.CAD (coronary artery disease) asa, atorvastatin, coreg, lisinopril.d/c plavix since last stentpx in 2011. 4.Anemia of chronic disease monitor Hgb and transfuse for Hgb<7 5.Wound dehiscence OR today per plastic surgery. 6.Preop examination Pt is being evaluated forurgent, moderate risk, history of prior surgeries include prior back surgery for which he did not have postop cardiac complications. Significant PMH includes DM, HTN, and CAD. While DM is medically optimized, blood pressure is uncontrolled on admission. medication adjustments can be seen as above.physical exam aside from traumatic injury otherwise unremarkable. prior to this admission, patient was able to complete >4 METS. EKG with RBBB but otherwise, sinus. Laststress test and LHC in 2011. RCRI: 0. no further work up required. Proceed to OR after htn improvement after starting po meds. Plan was communicated to patient. 7.Gout allopurinol Extracted from:Title: Clinical Document Author: Elvis Ellis MD Date: 08/28/17 DATE OF ADMISSION: 08/28/17 ATTENDING PHYSICIAN: Orthopaedic Surgery [facility] Ankle Service, Elvis Ellis MD REASON FOR ADMISSION: Post Operative Wound Dehiscence RLE CHIEF COMPLAINT: R leg wound dehiscence HISTORY OF PRESENT ILLNESS: 67 y/o M who is now 2.5 months from Right Total ankle replacement. He had wound breakdown that began three weeks after his operation. The anterior incision and loccal skin necrosed and became an open wound with exposed tendon despite local debridement and biologic usage (Acell). He has not developed any infection so far and is otherwise doing well in his normal state of health. He is being admitted today for I&D of his wound and placement of wound vac. He will be evaluated by PRS with Dr. Jackson. 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 No T/E/D. marries, lives with . FAMILY HISTORY: Noncontributory to this event MEDICATIONS: See EMR ALLERGIES: KNDA REVIEW OF SYSTEMS: Complete review of systems questions ask and results are negative with exception of HPI. PHYSICAL EXAMINATION: VITALS- AFVSS GEN: A&O x3. NAD. Cooperative. HEENT: Atraumatic, normocephalic. EOMI. PERRLA. CARDIO: Regular rate and rhythm. PULM: Breathing comfortably on RA with symmetric chest rise ABD: S, NT, ND. No rebound. SKIN: 8x6cm open wound anterior right ankle with exposed tendon. Clean granulation tissue bed. No signs of active infection. No drainage. No exposure of deep hardware. MSK: RLE motor function intact to foot. Palpable distal pulses. Brisk Cr to toes. NEURO: See MSK IMAGING: No new imaging at this time LABS: Preop labs pending: CBC w diff BMP Coags Type and screen ASSESSMENT AND PLAN: 67 y/o male with right post operative wound dehiscence. - Admit to [address] [place] [address] - Hospitalist consultation - Plan for I&D with application of wound vac today at 3pm - PRS evaluation and likely intervention. Dr. Jackson is already on board and aware of the patient. - Review preop labs when available - NPO/IVF for now - Start lovenox post op for DVT PPX. 09/09/2017 [facility] Extracted from:Title: P Hospitalist Discharge Summary Author: Tracey Rosado MD Date: 06/16/17 [facility] Providers Hospitalist Discharge Summary Code Status: Full Code [Ordered] Admission Date: 06/15/2017 Discharge Date: 06/16/2017 Discharge Diagnosis: total ankle replacement Discharge Condition: improved Hospital Course: Patient is a 67 year old M with a hx of DM, HTN, CAD who is now s/p total ankle replacement per ortho. Admitted for pain management and management of other medical comorbidities. Procedure was yesterday, tolerated procedure well. Endorses some discomfort in RLE. Today, seen by Dr. Ellis. Will be prescribed [place] and Zofran. Needs Lovenox on discharge x 2 weeks. Patient will follow up in clinic in 2 weeks. Patient understands plan of care, ok for discharge today. Will be discharged with rolling walker. Physical Exam: General: Awake, alert, oriented x 3, NAD HEENT: PERRLA, EOMI. MMM and intact without erythema. No conjunctival injection. No scleral icterus. Neck: Supple, full ROM Heart: RRR, normal S1, S2. No murmurs, rubs, gallops Lungs: Clear to auscultation bilaterally. Symmetric chest wall expansion. Abdomen: Soft, non-tender to palpation, non-distended. Bowel sound present in all 4 quadrants. MSK: RLE wrapped Discharge Instructions: Notify your physician if: Signs of Infection Discharge Activity: Activity: No restrictions Discharge Diet: Diet: Continue Home Diet Discharge Medications: Refer to EMR for full medication list Discharge Follow up: Follow Up With: Elvis Ellis MD Follow Up When: 2 Weeks Reason for Follow Up: Post Op Visit Time spent on discharge planning: > 30 minutes Tracey Rosado MD Hospitalist [place] [facility] Providers Extracted from:Title: Clinical Document Author: Elvis Ellis MD Date: 06/16/17 ORTHO PROGRESS NOTE Pt resting in bed, eating breakfast. Slept well. Nerve block working well. No complaints of pain at this time. VITALS: Vitals Tmp(F) Tmp(C) Ttype BP MAP Pulse RR SpO2 FIO2 ETCO2 06/16 08:06 98.3 36.83 oral 171/80 --- 61 18 97 --- --- 06/16 04:00 98.0 36.67 oral 135/78 --- 65 18 96 --- --- 06/16 00:00 97.6 36.44 oral 139/76 --- 62 18 98 --- --- 06/15 20:03 97.9 36.61 oral 170/93 --- 82 18 99 --- --- 06/15 16:12 98.1 36.72 oral 151/80 104 75 18 96 --- --- 24 Hr Tmax: 98.3F (36.83c) at 06/16 08:06 24 Hr Tmin: 97.4F (36.33c) at 06/15 10:21 36 Hr Tmax: 98.3F (36.83c) at 06/16 08:06 36 Hr Tmin: 97.4F (36.33c) at 06/15 10:21 Vital Signs are the last 5 in the past 48 hours. Weights are the last 5 in 60 days, plus initial. LABS: NO NEW LABS PE: RLE dressings in place. c/d/i. compartments soft. Can wiggle toes, but absent sensation due to nerve block. Brisk CR to all toes. A/P: POD 1 R total ankle replacement - NWB RLE. - Elevate RLE when supine. - Lovenox for 2 weeks - pain control with block and PO norco. - PT/OT has done walker training - OK to discahrge home with f/u in 2 weeks. Extracted from:Title: [facility] Hospitalist Admission H&P Author: Tracey Rosado MD Date: 06/15/17 [facility] Providers Hospitalist Admission History and Physical Code Status: Full Code [Ordered] Chief Complaint: s/p total ankle replacement History of Present Illness: Patient is a 67 year old M with a hx of DM, HTN, CAD who is now s/p total ankle replacement per ortho. Admitted for pain management and management of other medical comorbidities. Procedure was earlier today, tolerated procedure well. Endorses some discomfort in RLE. Denies other problems. Review of Systems: Review of Systems HEENT: no headaches, no vision changes Respiratory: no SOB Cardiovascular: no chest pain, palpitations Gastrointestinal: no abdominal pain, vomiting, nausea Genitourinary: no dysuria Integumentary: no rashes Extremities: RLE pain Neurologic: no focal weakness Landon/Lymph: no bleeding, bruising Endocrine: no hot flashes Psychiatric: no anxiety, depression Past Medical History: HTN CAD DM Past Surgical History: Esophagogastroduodenoscopy Colonoscopy Insertion of coronary artery stent Operation Operation Family History: Father: Heart attack; Heart disease; High blood pressure; Type 2 diabetes mellitus Mother: Rheumatoid arthritis Brother: Heart disease Social History: Alcohol Details: Current, Type Beer. Frequency: 1-2 times per week. Tobacco Details: Use: Former smoker. Stopped age 19 Years. Tobacco smoke exposure: None. Did the Patient Smoke Cigarettes Anytime During the Last 365 Days? No. Cessation Counseling Provided? No. Medications: Medications (29) Active Scheduled Meds (6): 06/15/17 acetaminophen-hydrocodone ([place] 10/325 oral tablet) 1 tab PO Q6H 06/16/17 allopurinol 300 mg PO Daily 06/16/17 amLODIPine 5 mg PO Daily 06/15/17 atorvastatin 80 mg PO Bedtime 06/15/17 ceFAZolin (Ancef) 1 gm IVPB [id number] 06/15/17 enoxaparin (Lovenox) 40 mg SUB-Q [id number] Unscheduled Meds (1): 06/15/17 ceFAZolin + sterile water 20 mL 2 gm IV ONCALL 200 ml/hr PRN Meds (9): 06/15/17 diphenhydrAMINE (ANES diphenhydrAMINE) 12.5 mg IVP Q6H 06/15/17 esmolol (ANES esmolol) 10 mg IVP Q5Min 06/15/17 flumazenil (ANES flumazenil) 0.2 mg IVP PRN 06/15/17 hydrALAZINE (ANES hydrALAZINE) 10 mg IVP Q20Min 06/15/17 hydromorphone (ANES HYDROmorphone) 0.5 mg IVP Q5Min 06/15/17 labetalol (ANES labetalol) 10 mg IVP Q5Min 06/15/17 meperidine (ANES meperidine) 12.5 mg IVP Q30Min 06/15/17 naloxone (ANES naloxone) 0.4 mg IVP Q2MIN 06/15/17 oxyCODONE (ANES oxyCODONE) 5 mg PO Q4H One Time Meds (12): (Completed) acetaminophen (acetaminophen (ANES)) IV ONCE 06/15/17 (Discontinued) albuterol-ipratropium (albuterol-ipratropium 2.5-0.5 mg inhalation solution) 3 mL NEB ONCE (Completed) ceFAZolin (ceFAZolin (ANES)) IV ONCE (Completed) dexamethasone (dexamethasone (ANES)) IV ONCE (Completed) fentaNYL (fentaNYL (ANES)) IV ONCE (Completed) glycopyrrolate (glycopyrrolate (ANES)) IV ONCE (Completed) lidocaine (lidocaine (ANES)) IV ONCE (Completed) midazolam (midazolam (ANES)) IV ONCE (Completed) neostigmine (neostigmine (ANES)) IV ONCE (Completed) ondansetron (ondansetron (ANES)) IV ONCE (Completed) propofol (propofol (ANES)) IV ONCE (Completed) rocuronium (rocuronium (ANES)) IV ONCE Continuous Infusions (1): 06/15/17 Lactated Ringers Injection IV 1,000 mL 1,000 mL 125 ml/hr Allergies (1) Active Reaction NKDA None documented Physical Exam: Vitals Tmp(F) Pulse BP RR SpO2 FIO2 06/15 13:30 97.6 85 168/80 -- 99 --- 06/15 11:20 97.6 79 139/73 10 97 --- 06/15 11:05 ---- 72 142/83 10 97 3.0L/m 06/15 10:50 ---- 72 146/83 17 97 3.0L/m 06/15 10:35 ---- 77 159/77 15 97 3.0L/m 24 Hr Tmax: 97.6F (36.44c) at 06/15 13:30 Vital Signs are the last 5 in the past 48 hours. Physical Exam General: Awake, alert, oriented x 3, NAD HEENT: PERRLA, EOMI. MMM and intact without erythema. No conjunctival injection. No scleral icterus. Neck: Supple, full ROM Heart: RRR, normal S1, S2. No murmurs, rubs, gallops Lungs: Clear to auscultation bilaterally. Symmetric chest wall expansion. Abdomen: Soft, non-tender to palpation, non-distended. Bowel sound present in all 4 quadrants. MSK: RLE wrapped Skin: No rashes or lesions. No petechiae or bruising noted. Neuro: CN II-XII grossly intact. Psych: Appropriate mood and affect. Lines, Tubes, and Drains: 06/15/2017 06:30 Peripheral Lines: Hand Left 20 gauge Over the needle catheter Labs: Hct: 42.5 % (06/15/17 13:47:42) Hgb: 14.5 g/dL (06/15/17 13:47:42) MCH: 31.2 pg High (06/15/17 13:47:42) MCHC: 34.1 g/dL (06/15/17 13:47:42) MCV: 91.5 fL (06/15/17 13:47:42) MPV: 7.8 fL (06/15/17 13:47:42) Platelet: 259 K/CMM (06/15/17 13:47:42) RBC: 4.65 M/CMM Low (06/15/17 13:47:42) RDW: 13 % (06/15/17 13:47:42) WBC: 13.4 K/CMM High (06/15/17 13:47:42) Imaging: Reviewed Assessment/Plan: 1. S/p total ankle replacement 2. Pain management 3. DM 4. HTN 5. CAD Plan: -continue PO [place], can add morphine for breakthrough pain -Lovenox x 2 weeks until plavix can be restarted -PT/OT -ISS -continue home antihypertensives Prophylaxis: Lovenox Disposition: likely 1 [place] hospitalization Tracey Rosado MD Hospitalist [place] Inpatient Providers 06/16/2017 [facility] Plan of Care No Data Provided for This Section Social History Social History Date Source Social History TypeResponse Substance Abuse Use: None. Alcohol Current, Type Beer. Frequency: 1-2 times per month. Last use: no drink in 3 months. Previous treatment: None. Alcohol use interferes with work or home: No. Drinks more than intended: No. Others hurt by drinking: No. Ready to change: No. Household alcohol concerns: No. Smoking Status Never smoker; Exposure to Tobacco Smoke None; Cigarette Smoking Last 365 Days No; Reg Smoking Cessation Counseling No; Stopped at age: 19; entered on: 08/28/17 08/28/2017 [facility] Social History TypeResponse Substance Abuse Use: None. Alcohol Current, Type Beer. Frequency: 1-2 times per month. Last use: no drink in 3 months. Previous treatment: None. Alcohol use interferes with work or home: No. Drinks more than intended: No. Others hurt by drinking: No. Ready to change: No. Household alcohol concerns: No. Smoking Status Never smoker; Exposure to Tobacco Smoke None; Cigarette Smoking Last 365 Days No; Reg Smoking Cessation Counseling No; Stopped at age: 19; entered on: 08/28/17 08/28/2017 [facility] Social History TypeResponse Substance Abuse Use: None. Alcohol Current, Type Beer. Frequency: 1-2 times per month. Last use: no drink in 3 months. Previous treatment: None. Alcohol use interferes with work or home: No. Drinks more than intended: No. Others hurt by drinking: No. Ready to change: No. Household alcohol concerns: No. Smoking Status Never smoker; Exposure to Tobacco Smoke None; Cigarette Smoking Last 365 Days No; Reg Smoking Cessation Counseling No; Stopped at age: 19; entered on: 08/28/17 08/28/2017 [facility] Social History TypeResponse Alcohol Current, Type Beer. Frequency: 1-2 times per week. Smoking Status Former smoker; Exposure to Tobacco Smoke None; Cigarette Smoking Last 365 Days No; Reg Smoking Cessation Counseling No; Stopped at age: 19; 06/07/2017 [facility] No data available for this section 05/11/2017 [facility] Family History No Data Provided for This Section Advance Directives No Data Provided for This Section Functional Status No Data Provided for This Section
--- OUTSIDE RECORDS SUMMARY | 2019-02-22 14:39 | XMS REPORT | Summary of Care ---
Author Author [facility] Address Unknown Phone Unavailable Encounter KULDEEP Bee(FIN) [id number] Date(s): 02/02/18 - 03/03/18 [facility] Encounter Diagnosis Primary osteoarthritis, right ankle and foot (Final) - 03/09/18 Difficulty in walking, not elsewhere classified (Final) - Disruption of external operation (surgical) wound, not elsewhere classified, sub sequent encounter (Final) - Stiffness of unspecified joint, not elsewhere classified (Final) - Discharge Disposition: Home or Self Care Attending Physician: Elvis Ellis MD Vital Signs No data available for this section Problem List Condition Effective Dates Status Health Status Informant BPH (benign Active prostatic hyperplasia)(Confirm ed) CAD (coronary artery Active disease)(Confirmed) Diabetes(Confirmed) Active Gout(Confirmed) Active Hyperlipidemia(Confi Active rmed) HTN Active (hypertension)(Confi rmed) Lumbosacral 05/28/13 Active spondylosis without myelopathy1 Osteoarthritis(Confi Active rmed) History of coronary Active artery stent placement(Confirmed) 1Data migrated from spotflux on 03/24/15. Allergies, Adverse Reactions, Alerts Substance Reaction Severity Status NKDA Active Medications No data available for this section Results No data available for this section Immunizations Given and Recorded Vaccine Date Status Refusal Reason pneumococcal 23-valent vaccine 06/11/13 Given Procedures Procedure Date Related Diagnosis Body Site Status Colonoscopy Completed Esophagogastroduodenoscopy Completed Insertion of coronary artery stent Completed Operation Completed Operation Completed Social History Social History Type Response Substance Abuse Use: None. Alcohol Current, Type [...] Stopped at age: 19; entered on: 08/28/17 Assessment and Plan No data available for this section
--- OUTSIDE RECORDS SUMMARY | 2019-02-22 14:39 | XMS REPORT | Summary of Care ---
Author Author [facility] Address Unknown Phone Unavailable Encounter HQ Cristal(FIN) [id number] Date(s): 03/07/18 - 04/05/18 On license of [facility] Encounter Diagnosis Difficulty in walking, not elsewhere classified (Final) - 04/12/18 Disruption of external operation (surgical) wound, not elsewhere classified, sub sequent encounter (Final) - Stiffness of unspecified joint, not elsewhere classified (Final) - Muscle weakness (generalized) (Final) - Discharge Disposition: Home or Self [...] Active artery stent placement(Confirmed) 1Data migrated from [employer] on 03/24/15. Allergies, Adverse Reactions, Alerts Substance [...]
--- OUTSIDE RECORDS SUMMARY | 2019-02-22 14:40 | XMS REPORT | Summary of Care ---
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 (Final) - Discharge Disposition: Home or Self Care Attending Physician: Jenelle Yanes MD Vital Signs No data available for this section Problem List Condition Effective Dates Status Health Status Informant BPH (benign Active prostatic hyperplasia)(Confirm ed) CAD (coronary artery Active disease)(Confirmed) Diabetes(Confirmed) Active Gout(Confirmed) Active Hyperlipidemia(Confi Active rmed) HTN Active (hypertension)(Confi rmed) Lumbosacral 05/28/13 Active spondylosis without myelopathy1 Osteoarthritis(Confi Active rmed) History of coronary Active artery stent placement(Confirmed) 1Data migrated from [employer] on 03/24/15. Allergies, Adverse Reactions, Alerts Substance [...]
--- OUTSIDE RECORDS SUMMARY | 2019-02-22 14:40 | XMS REPORT | Summary of Care ---
Author Author [facility] Address Unknown Phone Unavailable Encounter HQ Carlosr_hemanth(FIN) [id number] Date(s): 01/03/18 - 02/01/18 [facility] Discharge Disposition: Home or Self Care Attending [...] Active artery stent placement(Confirmed) 1Data migrated from [employer] on 03/24/15. Allergies, Adverse Reactions, Alerts Substance [...]
--- OUTSIDE RECORDS SUMMARY | 2019-02-22 14:40 | XMS REPORT | Summary of Care ---
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 (Final) - 09/21/17 Type 2 diabetes mellitus with foot ulcer (Final) - Unspecified open wound, right lower leg, subsequent encounter (Final) - Type 2 diabetes mellitus with hyperglycemia (Final) - Essential (primary) hypertension (Final) - Atherosclerotic heart disease of [place] coronary artery without angina pectoris (Final) - Discharge Disposition: Home or Self Care Attending Physician: Jenelle Yanes MD Referring Physician: Jenelle Yanes MD Vital Signs No data available for this section Problem List Condition Effective Dates Status Health Status Informant BPH (benign Active prostatic hyperplasia)(Confirm ed) CAD (coronary artery Active disease)(Confirmed) Diabetes(Confirmed) Active Gout(Confirmed) Active Hyperlipidemia(Confi Active rmed) HTN Active (hypertension)(Confi rmed) Lumbosacral 05/28/13 Active spondylosis without myelopathy1 Osteoarthritis(Confi Active rmed) History of coronary Active artery stent placement(Confirmed) 1Data migrated from [employer] on 03/24/15. Allergies, Adverse Reactions, Alerts Substance [...]
--- OUTSIDE RECORDS SUMMARY | 2019-02-22 14:40 | XMS REPORT | Summary of Care ---
Author Author [facility] Organization [facility] Address Unknown Phone Unavailable Encounter KULDEEP Bee(ANTONY) [id number] Date(s): 08/28/17 - 09/08/17 [facility] [address] [facility] provided by [facility] [place] [address]- Encounter Diagnosis Disruption of external operation (surgical) wound, not elsewhere classified, ini tial encounter (Final) - Disruption of external operation (surgical) wound, not elsewhere classified, ini tial encounter (Final) - 10/02/17 Acute posthemorrhagic anemia (Final) - Type 2 diabetes mellitus with diabetic peripheral angiopathy without gangrene (Final) - Type 2 diabetes mellitus with hyperglycemia (Final) - Anemia in other chronic diseases classified elsewhere (Final) - Insomnia, unspecified (Final) - Essential (primary) hypertension (Final) - Atherosclerotic heart disease of [place] coronary artery without angina pectoris (Final) - Presence of right artificial ankle joint (Final) - Gout, unspecified (Final) - Benign prostatic hyperplasia without lower urinary tract symptoms (Final) - Hiccough (Final) - Pseudomonas (aeruginosa) (mallei) (pseudomallei) as the cause of diseases classi fied elsewhere (Final) - Discharge Disposition: Home Care with Home Health Attending Physician: Prince Leanne Quiroz MD Admitting Physician: Elvis Ellis MD Vital Signs 1 2 3 Most recent to oldest [Reference Range]: 177.8 cm (08/28/17 12:06 PM) 177.8 cm (08/28/17 9:54 AM) Height 98.1 DegF (09/08/17 12:22 PM) 98.1 DegF (09/08/17 8:10 AM) 98.6 DegF (09/08/17 5:03 AM) Temperature Oral [96.4-99.1 DegF] 129/77 mmHg (09/08/17 12:22 PM) 133/73 mmHg (09/08/17 8:10 AM) 110/60 mmHg (09/08/17 5:03 AM) Blood Pressure [90-140/60-90 mmHg] 18 BRMIN (09/08/17 12:22 PM) 18 BRMIN (09/08/17 8:10 AM) 18 BRMIN (09/08/17 5:03 AM) Respiratory Rate [14-20 BRMIN] 64 bpm (09/08/17 12:22 PM) 79 bpm (09/08/17 8:10 AM) 66 bpm (09/08/17 5:03 AM) Peripheral Pulse Rate [60-100 bpm] 95.455 kg (08/28/17 12:06 PM) 95.455 kg (08/28/17 9:54 AM) Weight 30.2 m2 (08/28/17 12:06 PM) 30.2 m2 (08/28/17 9:54 AM) Body Mass Index Problem List Condition Effective Dates Status Health Status Informant BPH (benign Active prostatic hyperplasia)(Confirm ed) CAD (coronary artery Active disease)(Confirmed) Diabetes(Confirmed) Active Gout(Confirmed) Active Hyperlipidemia(Confi Active rmed) HTN Active (hypertension)(Confi rmed) Lumbosacral 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 Allergies, Adverse Reactions, Alerts Substance Reaction Severity Status NKDA Active Medications acetaminophen (ANES) Route: IV, Drug form: INJ, ONCE, Stop date: 08/30/17 9:31:00 CHILDREN'S AIDE Start Date: 08/30/17 Stop Date: 08/30/17 Status: Completed acetaminophen (ANES) 10 mg Route: IV, Drug form: INJ, Start date: 08/31/17 17:45:00 CHILDREN'S AIDE, Stop date: 8 18:45:00 CHILDREN'S AIDE Start Date: 08/31/17 Stop Date: 08/31/17 Status: Completed acetaminophen (ANES) 1000 mg Route: IV, Drug form: INJ, Start date: 08/28/17 16:06:00 CHILDREN'S AIDE, Stop date: 8 17:06:00 CHILDREN'S AIDE Start Date: 08/28/17 Stop Date: 08/28/17 Status: Completed allopurinol 300 mg, 1 tab, Route: PO, Drug form: TAB, Daily, Dosing Weight 95.455, kg, Start date: 08/29/17 9:00:00 CHILDREN'S AIDE, Duration: 30 day, Stop date: 09/27/17 9:00:00 CHILDREN'S AIDE Notes: (Same as: Zyloprim) Start Date: 08/29/17 Stop Date: 09/08/17 Status: Discontinued amLODIPine 5 mg oral tablet TAKE A HALF TABLET BY MOUTH TWICE A DAY Start Date: 08/28/17 Status: Ordered Ancef 1 gm, Route: IVPB, [id number], Dosing Weight 95.455, kg, Start date: 08/28/17 17:00: 00 CHILDREN'S AIDE, Duration: 14 day, Stop date: 09/11/17 12:00:00 CHILDREN'S AIDE, ABX Indication: Open Wound Prophylaxis Notes: (Same As: Franklin Scales) MEDICATION WASTE Product Size: 1000 mgP roduct Wasted: ___ mg Start Date: 08/28/17 Stop Date: 09/01/17 Status: Discontinued ANES diphenhydrAMINE 12.5 mg, 0.25 mL, Route: IVP, Drug form: INJ, Q6H, Dosing Weight 95.455, kg, PRN Itching, Start date: 08/30/17 8:16:00 CHILDREN'S AIDE, Stop date: 08/31/17 0:00:00 CHILDREN'S AIDE Notes: (Same as: Octavioadryl) Start Date: 08/30/17 Stop Date: 08/30/17 Status: Discontinued ANES flumazenil 0.2 mg, Route: IVP, PRN, Dosing Weight 95.455, kg, PRN Benzodiazepine Reversal, Initial dose, Start date: 08/28/17 16:09:00 CHILDREN'S AIDE, Duration: 30 day, Stop date: 16:08:00 CHILDREN'S AIDE Start Date: 08/28/17 Stop Date: 08/28/17 Status: Discontinued ANES flumazenil 0.2 mg, Route: IVP, PRN, Dosing Weight 95.455, kg, PRN Benzodiazepine Reversal, Initial dose, Start date: 08/31/17 17:55:00 CHILDREN'S AIDE, Duration: 30 day, Stop date: 17:54:00 CHILDREN'S AIDE Start Date: 08/31/17 Stop Date: 09/01/17 Status: Discontinued ANES flumazenil 0.2 mg, 2 mL, Route: IVP, Drug form: INJ, PRN, Dosing Weight 95.455, kg, PRN Octavio zodiazepine Reversal, Initial dose, Start date: 08/30/17 8:16:00 CHILDREN'S AIDE, Stop date: 08/31/17 0:00:00 CHILDREN'S AIDE Notes: (Same as: Romazicon) Start Date: 08/30/17 Stop Date: 08/30/17 Status: Discontinued ANES hydrALAZINE 10 mg, Route: IVP, Q20Min, Dosing Weight 95.455, kg, PRN Elevated BP, Start date : 08/28/17 16:09:00 CHILDREN'S AIDE, Duration: 2 doses or times, Stop date: Limited # of susan es Start Date: 08/28/17 Stop Date: 08/28/17 Status: Discontinued ANES hydrALAZINE 10 mg, 0.5 mL, Route: IVP, Drug form: INJ, Q20Min, Dosing Weight 95.455, kg, PRN Elevated BP, Start date: 08/30/17 8:16:00 CHILDREN'S AIDE, Duration: 2 doses or times, Stop date: 08/31/17 0:00:00 CHILDREN'S AIDE Notes: (Same as: Apresoline)Push over 5 minutes Start Date: 08/30/17 Stop Date: 08/30/17 Status: Discontinued ANES HYDROmorphone 0.5 mg, Route: IVP, Q5Min, Dosing Weight 95.455, kg, PRN Pain Score 7-10, Start date: 08/28/17 16:09:00 CHILDREN'S AIDE, Duration: 4 doses or times, Stop date: Limited # of times Start Date: 08/28/17 Stop Date: 08/28/17 Status: Discontinued ANES HYDROmorphone 0.5 mg, Route: IVP, Q5Min, Dosing Weight 95.455, kg, PRN Pain Score 7-10, Start date: 08/31/17 17:55:00 CHILDREN'S AIDE, Duration: 4 doses or times, Stop date: Limited # of times Start Date: 08/31/17 Stop Date: 09/01/17 Status: Discontinued ANES HYDROmorphone 0.5 mg, 0.25 mL, Route: IVP, Drug form: INJ, Q5Min, Dosing Weight 95.455, kg, WI N Pain Score 7-10, Start date: 08/30/17 8:16:00 CHILDREN'S AIDE, Duration: 4 doses or times, Stop date: 08/31/17 0:00:00 CHILDREN'S AIDE Notes: Same as Dilaudid Start Date: 08/30/17 Stop Date: 08/30/17 Status: Discontinued ANES labetalol 10 mg, Route: IVP, Q5Min, Dosing Weight 95.455, kg, PRN Elevated BP, Start date: 08/28/17 16:09:00 CHILDREN'S AIDE, Duration: 5 doses or times, Stop date: Limited # of times Start Date: 08/28/17 Stop Date: 08/28/17 Status: Discontinued ANES labetalol 10 mg, 2 mL, Route: IVP, Drug form: INJ, Q5Min, Dosing Weight 95.455, kg, PRN El evated BP, Start date: 08/30/17 8:16:00 CHILDREN'S AIDE, Duration: 5 doses or times, Stop da te: 08/31/17 0:00:00 CHILDREN'S AIDE Start Date: 08/30/17 Stop Date: 08/30/17 Status: Discontinued ANES naloxone 0.4 mg, Route: IVP, Q2MIN, Dosing Weight 95.455, kg, PRN Narcotic Reversal, Star t date: 08/28/17 16:09:00 CHILDREN'S AIDE, Duration: 8 doses or times, Stop date: Limited # of times Start Date: 08/28/17 Stop Date: 08/28/17 Status: Discontinued ANES naloxone 0.4 mg, Route: IVP, Q2MIN, Dosing Weight 95.455, kg, PRN Narcotic Reversal, Star t date: 08/31/17 17:55:00 CHILDREN'S AIDE, Duration: 8 doses or times, Stop date: Limited # of times Start Date: 08/31/17 Stop Date: 09/01/17 Status: Discontinued ANES naloxone 0.4 mg, 1 mL, Route: IVP, Drug form: INJ, Q2MIN, Dosing Weight 95.455, kg, PRN N arcotic Reversal, Start date: 08/30/17 8:16:00 CHILDREN'S AIDE, Duration: 8 doses or times, Stop date: 08/31/17 0:00:00 CHILDREN'S AIDE Notes: Same as Narcan Start Date: 08/30/17 Stop Date: 08/30/17 Status: Discontinued ANES ondansetron 4 mg, Route: IVP, ONCE, Dosing Weight 95.455, kg, PRN Nausea & Vomiting, Start date: 08/28/17 16:09:00 CHILDREN'S AIDE Start Date: 08/28/17 Stop Date: 08/28/17 Status: Discontinued ANES ondansetron 4 mg, Route: IVP, ONCE, Dosing Weight 95.455, kg, PRN Nausea & Vomiting, Start date: 08/31/17 17:55:00 CHILDREN'S AIDE Start Date: 08/31/17 Stop Date: 09/01/17 Status: Discontinued ANES ondansetron 4 mg, 2 mL, Route: IVP, Drug form: INJ, ONCE, Dosing Weight 95.455, kg, PRN Naus ea & Vomiting, Start date: 08/30/17 8:16:00 CHILDREN'S AIDE Notes: (Same as: Sumit) MEDICATION WASTE Product Size: 4 mgProduct Was moy: ___ mg Start Date: 08/30/17 Stop Date: 08/30/17 Status: Discontinued ANES oxyCODONE 5 mg, Route: PO, Drug form: TAB, Q4H, Dosing Weight 95.455, kg, PRN Pain Score 4 -6, Start date: 08/28/17 16:09:00 CHILDREN'S AIDE, Duration: 30 day, Stop date: 09/27/17 16: 08:00 CHILDREN'S AIDE Start Date: 08/28/17 Stop Date: 08/28/17 Status: Discontinued ANES oxyCODONE 5 mg, Route: PO, Drug form: TAB, Q4H, Dosing Weight 95.455, kg, PRN Pain Score 4 -6, Start date: 08/31/17 17:55:00 CHILDREN'S AIDE, Duration: 30 day, Stop date: 09/30/17 17: 54:00 CHILDREN'S AIDE Start Date: 08/31/17 Stop Date: 09/01/17 Status: Discontinued ANES oxyCODONE 5 mg, 5 mL, Route: NG, Drug form: LIQ, Q4H, Dosing Weight 95.455, kg, PRN Pain S core 4-6, Start date: 08/30/17 8:16:00 CHILDREN'S AIDE, Stop date: 08/31/17 0:00:00 CHILDREN'S AIDE Notes: (Same as: 'Roxicodone) Start Date: 08/30/17 Stop Date: 08/30/17 Status: Discontinued ANES promethazine 6.25 mg, 0.25 mL, Route: IVPB, Drug form: INJ, ONCE, Dosing Weight 95.455, kg, P RN Nausea & Vomiting, Start date: 08/30/17 8:16:00 CHILDREN'S AIDE Notes: Do not give IV push. (Same as: Phenergan) Start Date: 08/30/17 Stop Date: 08/30/17 Status: Discontinued aspirin 81 mg tablet, enteric coated 81 mg, 1 tab, Route: PO, Drug form: ECTAB, Daily, Dosing Weight 95.455, kg, Star t date: 08/29/17 9:00:00 CHILDREN'S AIDE, Duration: 30 day, Stop date: 09/27/17 9:00:00 CHILDREN'S AIDE Notes: Do not crush or chew.(Same As: Ecotrin) Start Date: 08/29/17 Stop Date: 09/08/17 Status: Discontinued atorvastatin 80 mg, 1 tab, Route: PO, Drug form: TAB, Bedtime, Dosing Weight 95.455, kg, Star t date: 08/28/17 21:00:00 CHILDREN'S AIDE, Duration: 30 day, Stop date: 09/26/17 21:00:00 CS T Notes: Same as Lipitor Start Date: 08/28/17 Stop Date: 09/08/17 Status: Discontinued bacitracin topical 1 appl, Route: TOP, Daily, Drug form: OINT, Start date: 09/07/17 16:00:00 CHILDREN'S AIDE, D uration: 30 day, Stop date: 10/07/17 9:00:00 CHILDREN'S AIDE Start Date: 09/07/17 Stop Date: 09/08/17 Status: Discontinued Benadryl 25 mg, 1 cap, Route: PO, Drug form: CAP, Bedtime, Dosing Weight 95.455, kg, PRN Insomnia, Start date: 09/03/17 9:59:00 CHILDREN'S AIDE, Duration: 30 day, Stop date: 8 9:58:00 CHILDREN'S AIDE Notes: (Same as: Benadryl) Start Date: 09/03/17 Stop Date: 09/08/17 Status: Discontinued Benadryl 25 mg, 0.5 mL, Route: IVP, Drug form: INJ, ONCE, Dosing Weight 95.455, kg, PRN I nsomnia, Start date: 09/03/17 9:59:00 CHILDREN'S AIDE Notes: (Same as: Benadryl) Start Date: 09/03/17 Stop Date: 09/08/17 Status: Discontinued Benadryl 25 mg, 1 cap, Route: PO, Drug form: CAP, TID, Dosing Weight 95.455, kg, PRN Itch ing, Start date: 09/03/17 14:16:00 CHILDREN'S AIDE, Duration: 30 day, Stop date: 10/03/17 14 :15:00 CHILDREN'S AIDE Notes: (Same as: Benadryl) Start Date: 09/03/17 Stop Date: 09/08/17 Status: Discontinued calcium chloride (ANES) Route: IV, Drug form: INJ, ONCE, Stop date: 08/31/17 17:55:00 CHILDREN'S AIDE Start Date: 08/31/17 Stop Date: 08/31/17 Status: Completed calcium chloride (ANES) Route: IV, Drug form: INJ, ONCE, Stop date: 08/31/17 15:59:00 CHILDREN'S AIDE Start Date: 08/31/17 Stop Date: 08/31/17 Status: Completed carvedilol 12.5 mg oral tablet 12.5 mg=1 tab, PO, Q12H, 0 Refill(s) Start Date: 09/07/17 Status: Ordered ceFAZolin (ANES) Route: IV, Drug form: INJ, ONCE, Stop date: 08/30/17 8:19:00 CHILDREN'S AIDE Start Date: 08/30/17 Stop Date: 08/30/17 Status: Completed ceFAZolin (ANES) Route: IV, Drug form: INJ, ONCE, Stop date: 08/28/17 16:32:00 CHILDREN'S AIDE Start Date: 08/28/17 Stop Date: 08/28/17 Status: Completed ceFAZolin (ANES) Route: IV, Drug form: INJ, ONCE, Stop date: 08/31/17 12:42:00 CHILDREN'S AIDE Start Date: 08/31/17 Stop Date: 08/31/17 Status: Completed ceFAZolin (ANES) Route: IV, Drug form: INJ, ONCE, Stop date: 08/31/17 18:15:00 CHILDREN'S AIDE Start Date: 08/31/17 Stop Date: 08/31/17 Status: Completed cefepime + sterile water 20 mL 2 gm, Route: IVP, Q12H, Dosing Weight 95.455, kg, Start date: 08/29/17 9:00:[address], Duration: 30 day, Stop date: 09/28/17 1:00:00 CHILDREN'S AIDE, ABX Indication: Skin/Soft Tissue Infection Notes: (Same as: Maxipime) MEDICATION WASTE Product Size: 2000 mgProduc t Wasted: ___ mg Start Date: 08/29/17 Stop Date: 09/01/17 Status: Discontinued chlorproMAZINE 25 mg, 1 tab, Route: PO, Drug form: TAB, TID, Dosing Weight 95.455, kg, Start da te: 09/03/17 17:00:00 CHILDREN'S AIDE, Duration: 30 day, Stop date: 10/03/17 13:00:00 CHILDREN'S AIDE Notes: (Same As: Thorazine) Start Date: 09/03/17 Stop Date: 09/07/17 Status: Discontinued ciprofloxacin 750 mg, 3 tab, Route: PO, Drug form: TAB, [id number], Dosing Weight 95.455, kg, Sta rt date: 09/01/17 19:00:00 CHILDREN'S AIDE, Duration: 6 week, Stop date: 10/13/17 9:00:00 CD T, ABX Indication: Bone/Joint Infection Start Date: 09/01/17 Stop Date: 09/08/17 Status: Discontinued ciprofloxacin 250 mg oral tablet 750 mg=3 tab, PO, [id number], X 5 week, # 210 tab, 0 Refill(s), Pharmacy: [id number] Start Date: 09/07/17 Stop Date: 10/12/17 Status: Completed clopidogrel 75 mg oral tablet 75 mg=1 tab, PO, Daily, # 30 tab, 0 Refill(s) Start Date: 08/28/17 Status: Ordered Coreg 12.5 mg, 1 tab, Route: PO, Drug form: TAB, Q12H, Dosing Weight 95.455, kg, Prior ity: NOW, Start date: 08/28/17 14:27:00 CHILDREN'S AIDE, Duration: 30 day, Stop date: 9:00:00 CHILDREN'S AIDE Notes: Give with food. (Same As: Coreg) Start Date: 08/28/17 Stop Date: 09/08/17 Status: Discontinued dexamethasone (ANES) Route: IV, Drug form: INJ, ONCE, Stop date: 08/31/17 12:47:00 CHILDREN'S AIDE Start Date: 08/31/17 Stop Date: 08/31/17 Status: Completed Dextrose 50% Syringe 12.5 gm, 25 mL, Route: IVP, Drug Form: INJ, Dosing Weight 95.455, kg, PRN, PRN B lood Glucose Results, Start date: 08/28/17 14:11:00 CHILDREN'S AIDE, Duration: 30 day, Stop date: 09/27/17 14:10:00 CHILDREN'S AIDE Start Date: 08/28/17 Stop Date: 09/01/17 Status: Discontinued Dextrose 50% Syringe 25 gm, 50 mL, Route: IVP, Drug Form: INJ, Dosing Weight 95.455, kg, PRN, PRN Blo od Glucose Results, Start date: 08/28/17 14:11:00 CHILDREN'S AIDE, Duration: 30 day, Stop da te: 09/27/17 14:10:00 CHILDREN'S AIDE Start Date: 08/28/17 Stop Date: 09/01/17 Status: Discontinued Dextrose 50% Syringe 25 gm, 50 mL, Route: IVP, Drug Form: INJ, Dosing Weight 95.455, kg, PRN, PRN Blo od Glucose Results, Start date: 09/01/17 15:51:00 CHILDREN'S AIDE, Duration: 30 day, Stop da te: 10/01/17 15:50:00 CHILDREN'S AIDE Start Date: 09/01/17 Stop Date: 09/08/17 Status: Discontinued Dextrose 50% Syringe 12.5 gm, 25 mL, Route: IVP, Drug Form: INJ, Dosing Weight 95.455, kg, PRN, PRN B lood Glucose Results, Start date: 09/01/17 15:51:00 CHILDREN'S AIDE, Duration: 30 day, Stop date: 10/01/17 15:50:00 CHILDREN'S AIDE Start Date: 09/01/17 Stop Date: 09/08/17 Status: Discontinued Dilaudid 0.5 mg, Route: IVP, ONCE, Dosing Weight 95.455, kg, Priority: STAT, Start date: 09/01/17 0:57:00 CHILDREN'S AIDE, Stop date: 09/01/17 0:57:00 CHILDREN'S AIDE Start Date: 09/01/17 Stop Date: 09/01/17 Status: Discontinued docusate sodium 100 mg oral capsule 100 mg, 1 cap, Route: PO, Drug form: CAP, BID, Dosing Weight 95.455, kg, Start d ate: 09/01/17 9:00:00 CHILDREN'S AIDE, Duration: 30 day, Stop date: 09/30/17 17:00:00 CHILDREN'S AIDE Notes: (Same as: Colace) (Do Not Crush) Start Date: 09/01/17 Stop Date: 09/08/17 Status: Discontinued docusate sodium 100 mg oral capsule 100 mg, 1 cap, Route: PO, Drug form: CAP, BID, Dosing Weight 95.455, kg, Start d ate: 08/29/17 17:00:00 CHILDREN'S AIDE, Duration: 30 day, Stop date: 09/28/17 9:00:00 CHILDREN'S AIDE Notes: (Same as: Colace) (Do Not Crush) Start Date: 08/29/17 Stop Date: 09/01/17 Status: Discontinued Dulcolax Laxative 10 mg, 1 supp, Route: WI, Drug form: SUPP, Daily, Dosing Weight 95.455, kg, PRN Constipation, Priority: NOW, Start date: 09/02/17 9:27:00 CHILDREN'S AIDE, Duration: 30 day, Stop date: 10/02/17 9:26:00 CHILDREN'S AIDE Notes: (Same As: Dulcolax, Bisco-Lax) Start Date: 09/02/17 Stop Date: 09/03/17 Status: Discontinued Dulcolax Laxative 10 mg, 1 supp, Route: PO, Drug form: SUPP, Daily, Dosing Weight 95.455, kg, PRN Constipation, Start date: 09/02/17 5:23:00 CHILDREN'S AIDE, Duration: 30 day, Stop date: 12/15 5:22:00 CHILDREN'S AIDE Notes: (Same As: Dulcolax, Bisco-Lax) Start Date: 09/02/17 Stop Date: 09/08/17 Status: Discontinued enoxaparin 40 mg/0.4 mL subcutaneous solution 40 mg=0.4 mL, SUB-Q, [id number], X 30 day, # 12 mL, 0 Refill(s), Pharmacy: [facility] #[id number] Start Date: 09/07/17 Stop Date: 10/07/17 Status: Completed ePHEDrine (ANES) Route: IV, Drug form: INJ, ONCE, Stop date: 08/30/17 8:34:00 CHILDREN'S AIDE Start Date: 08/30/17 Stop Date: 08/30/17 Status: Completed ePHEDrine (ANES) Route: IV, Drug form: INJ, ONCE, Stop date: 08/28/17 16:23:00 CHILDREN'S AIDE Start Date: 08/28/17 Stop Date: 08/28/17 Status: Completed ePHEDrine (ANES) Route: IV, Drug form: INJ, ONCE, Stop date: 08/31/17 20:55:00 CHILDREN'S AIDE Start Date: 08/31/17 Stop Date: 08/31/17 Status: Completed EPINEPHrine (ANES) Route: IV, Drug form: INJ, ONCE, Stop date: 08/31/17 21:15:00 CHILDREN'S AIDE Start Date: 08/31/17 Stop Date: 08/31/17 Status: Completed fentaNYL (ANES) Route: IV, Drug form: INJ, ONCE, Stop date: 08/30/17 8:29:00 CHILDREN'S AIDE Start Date: 08/30/17 Stop Date: 08/30/17 Status: Completed fentaNYL (ANES) Route: IV, Drug form: INJ, ONCE, Stop date: 08/28/17 16:23:00 CHILDREN'S AIDE Start Date: 08/28/17 Stop Date: 08/28/17 Status: Completed fentaNYL (ANES) Route: IV, Drug form: INJ, ONCE, Stop date: 08/31/17 12:42:00 CHILDREN'S AIDE Start Date: 08/31/17 Stop Date: 08/31/17 Status: Completed fentaNYL (ANES) Route: IV, Drug form: INJ, ONCE, Stop date: 08/31/17 19:30:00 CHILDREN'S AIDE Start Date: 08/31/17 Stop Date: 08/31/17 Status: Completed Flomax 0.4 mg, 1 cap, Route: PO, Drug form: CAP, After Dinner, Dosing Weight 95.455, kg , Start date: 08/29/17 17:00:00 CHILDREN'S AIDE, Duration: 30 day, Stop date: 09/27/17 17:00 :00 CHILDREN'S AIDE Notes: (Same As: Flomax) "Do Not Crush" Start Date: 08/29/17 Stop Date: 09/08/17 Status: Discontinued glucagon 1 mg, Route: IM, Drug form: PDR/INJ, PRN, Dosing Weight 95.455, kg, PRN Blood Gl ucose Results, Start date: 08/28/17 14:11:00 CHILDREN'S AIDE, Duration: 30 day, Stop date: 0 09/27/17 14:10:00 CHILDREN'S AIDE Start Date: 08/28/17 Stop Date: 09/01/17 Status: Discontinued glucagon 1 mg, Route: IM, Drug form: PDR/INJ, PRN, Dosing Weight 95.455, kg, PRN Blood Gl ucose Results, Start date: 09/01/17 15:51:00 CHILDREN'S AIDE, Duration: 30 day, Stop date: 0 10/01/17 15:50:00 CHILDREN'S AIDE Start Date: 09/01/17 Stop Date: 09/08/17 Status: Discontinued glycopyrrolate (ANES) Route: IV, Drug form: INJ, ONCE, Stop date: 08/31/17 22:16:00 CHILDREN'S AIDE Start Date: 08/31/17 Stop Date: 08/31/17 Status: Completed glycopyrrolate (ANES) Route: IV, Drug form: INJ, ONCE, Stop date: 08/31/17 15:59:00 CHILDREN'S AIDE Start Date: 08/31/17 Stop Date: 08/31/17 Status: Completed glycopyrrolate (ANES) Route: IV, Drug form: INJ, ONCE, Stop date: 08/28/17 16:32:00 CHILDREN'S AIDE Start Date: 08/28/17 Stop Date: 08/28/17 Status: Completed heparin (ANES) Route: IV, Drug form: INJ, ONCE, Stop date: 08/31/17 15:39:00 CHILDREN'S AIDE Start Date: 08/31/17 Stop Date: 08/31/17 Status: Completed heparin (ANES) 5000 unit + Route: IV, Drug form: INJ, Dosing Weight 95.5, kg, Start date: 08/31/17 16:11:00 CHILDREN'S AIDE, Stop date: 08/31/17 17:11:00 CHILDREN'S AIDE Start Date: 08/31/17 Stop Date: 08/31/17 Status: Completed heparin 20,000 unit + Lactated Ringers Injection IV 500 mL 500 mL, Rate: 12.5 ml/hr, Infuse over: 40 hr, Route: IV, Dosing Weight 95.455 kg , Total Volume: 500, Start date: 08/31/17 13:40:00 CHILDREN'S AIDE, Stop date: 09/30/17 13:4 2:00 CHILDREN'S AIDE, 2.19, m2 Start Date: 08/31/17 Stop Date: 09/07/17 Status: Discontinued hydrALAZINE 20 mg, 1 mL, Route: IV, Drug form: INJ, Q4H, Dosing Weight 95.455, kg, PRN Hyper tension, Start date: 08/28/17 14:28:00 CHILDREN'S AIDE, Duration: 30 day, Stop date: 8 14:27:00 CHILDREN'S AIDE Notes: (Same as: Apresoline)Push over 5 minutes Start Date: 08/28/17 Stop Date: 09/08/17 Status: Discontinued insulin lispro 3 unit, 0.03 mL, Route: SUB-Q, Drug form: SOLN, TID-Before Meals, Dosing Weight 95.455, kg, PRN Blood Glucose Results, Start date: 09/01/17 15:51:00 CHILDREN'S AIDE, Durati on: 30 day, Stop date: 10/01/17 15:50:00 CHILDREN'S AIDE Notes: (Same as: Humalog ) Roll in palms of hands gently; Do not shake `vigorou sly. "Single Patient Use Only " WASTE: F/P - Black; E - [employer] [address] able for 28 days at room temperature.Expires in days from Da te Start Date: 09/01/17 Stop Date: 09/08/17 Status: Discontinued insulin lispro 4 unit, 0.04 mL, Route: SUB-Q, Drug form: SOLN, TID-Before Meals, Dosing Weight 95.455, kg, PRN Blood Glucose Results, Start date: 09/01/17 15:51:00 CHILDREN'S AIDE, Durati on: 30 day, Stop date: 10/01/17 15:50:00 CHILDREN'S AIDE Notes: (Same as: Humalog ) Roll in palms of hands gently; Do not shake `vigorou sly. "Single Patient Use Only " WASTE: F/P - Black; E - [facility] [address] able for 28 days at room temperature.Expires in days from Da te Start Date: 09/01/17 Stop Date: 09/08/17 Status: Discontinued insulin lispro 1 unit, 0.01 mL, Route: SUB-Q, Drug form: SOLN, TID-Before Meals, Dosing Weight 95.455, kg, PRN Blood Glucose Results, Start date: 09/01/17 15:51:00 CHILDREN'S AIDE, Durati on: 30 day, Stop date: 10/01/17 15:50:00 CHILDREN'S AIDE Notes: (Same as: Humalog ) Roll in palms of hands gently; Do not shake `vigorou sly. "Single Patient Use Only " WASTE: F/P - Black; E - [facility] able for 28 days at room temperature.Expires in days from Da te Start Date: 09/01/17 Stop Date: 09/08/17 Status: Discontinued insulin lispro 2 unit, 0.02 mL, Route: SUB-Q, Drug form: SOLN, TID-Before Meals, Dosing Weight 95.455, kg, PRN Blood Glucose Results, Start date: 09/01/17 15:51:00 CHILDREN'S AIDE, Durati on: 30 day, Stop date: 10/01/17 15:50:00 CHILDREN'S AIDE Notes: (Same as: Humalog ) Roll in palms of hands gently; Do not shake `vigorou sly. "Single Patient Use Only " WASTE: F/P - Black; E - [facility] able for 28 days at room temperature.Expires in days from Da te Start Date: 09/01/17 Stop Date: 09/08/17 Status: Discontinued insulin lispro 5 unit, 0.05 mL, Route: SUB-Q, Drug form: SOLN, TID-Before Meals, Dosing Weight 95.455, kg, PRN Blood Glucose Results, Start date: 09/01/17 15:51:00 CHILDREN'S AIDE, Durati on: 30 day, Stop date: 10/01/17 15:50:00 CHILDREN'S AIDE Notes: (Same as: Humalog ) Roll in palms of hands gently; Do not shake `vigorou sly. "Single Patient Use Only " WASTE: F/P - Black; E - [facility] able for 28 days at room temperature.Expires in days from Da te Start Date: 09/01/17 Stop Date: 09/08/17 Status: Discontinued insulin lispro 1 unit, 0.01 mL, Route: SUB-Q, Drug form: SOLN, Bedtime, Dosing Weight 95.455, k g, PRN Blood Glucose Results, Start date: 09/01/17 15:51:00 CHILDREN'S AIDE, Duration: 30 da y, Stop date: 10/01/17 15:50:00 CHILDREN'S AIDE Notes: (Same as: Humalog ) Roll in palms of hands gently; Do not shake `vigorou sly. "Single Patient Use Only " WASTE: F/P - Black; E - [facility] able for 28 days at room temperature.Expires in days from Da te Start Date: 09/01/17 Stop Date: 09/08/17 Status: Discontinued insulin lispro 4 unit, 0.04 mL, Route: SUB-Q, Drug form: SOLN, Bedtime, Dosing Weight 95.455, k g, PRN Blood Glucose Results, Start date: 09/01/17 15:51:00 CHILDREN'S AIDE, Duration: 30 da y, Stop date: 10/01/17 15:50:00 CHILDREN'S AIDE Notes: (Same as: Humalog ) Roll in palms of hands gently; Do not shake `vigorou sly. "Single Patient Use Only " WASTE: F/P - Black; E - [facility] [address] able for 28 days at room temperature.Expires in days from Da te Start Date: 09/01/17 Stop Date: 09/08/17 Status: Discontinued insulin lispro 2 unit, 0.02 mL, Route: SUB-Q, Drug form: SOLN, Bedtime, Dosing Weight 95.455, k g, PRN Blood Glucose Results, Start date: 09/01/17 15:51:00 CHILDREN'S AIDE, Duration: 30 da y, Stop date: 10/01/17 15:50:00 CHILDREN'S AIDE Notes: (Same as: Humalog ) Roll in palms of hands gently; Do not shake `vigorou sly. "Single Patient Use Only " WASTE: F/P - Black; E - [facility] able for 28 days at room temperature.Expires in days from Da te Start Date: 09/01/17 Stop Date: 09/08/17 Status: Discontinued insulin lispro 3 unit, 0.03 mL, Route: SUB-Q, Drug form: SOLN, Bedtime, Dosing Weight 95.455, k g, PRN Blood Glucose Results, Start date: 09/01/17 15:51:00 CHILDREN'S AIDE, Duration: 30 da y, Stop date: 10/01/17 15:50:00 CHILDREN'S AIDE Notes: (Same as: Humalog ) Roll in palms of hands gently; Do not shake `vigorou sly. "Single Patient Use Only " WASTE: F/P - Black; E - [facility] able for 28 days at room temperature.Expires in days from Da te Start Date: 09/01/17 Stop Date: 09/08/17 Status: Discontinued Insulin regular 1 unit, 0.01 mL, Route: SUB-Q, Drug form: SOLN, Sliding Scale, Dosing Weight 95. 455, kg, PRN Blood Glucose Results, Start date: 08/28/17 14:11:00 CHILDREN'S AIDE, Duration: 30 day, Stop date: 09/27/17 14:10:00 CHILDREN'S AIDE Notes: (Same as: Humulin R) Roll in palms of hands gently; Do not shake vigorou sly. "single patient use only"(Restricted to patients requiring a dose > 60 units)WASTE: F/P - Black; E - Municipal Trash Bin Stable for 28 days at room temperatureExpires in days from Date Start Date: 08/28/17 Stop Date: 09/01/17 Status: Discontinued Insulin regular 5 unit, 0.05 mL, Route: SUB-Q, Drug form: SOLN, Sliding Scale, Dosing Weight 95. 455, kg, PRN Blood Glucose Results, Start date: 08/28/17 14:11:00 CHILDREN'S AIDE, Duration: 30 day, Stop date: 09/27/17 14:10:00 CHILDREN'S AIDE Notes: (Same as: Humulin R) Roll in palms of hands gently; Do not shake vigorou sly. "single patient use only"(Restricted to patients requiring a dose > 60 units)WASTE: F/P - Black; E - [facility] Trash Bin Stable for 28 days at room temperatureExpires in days from Date Start Date: 08/28/17 Stop Date: 09/01/17 Status: Discontinued Insulin regular 4 unit, 0.04 mL, Route: SUB-Q, Drug form: SOLN, Sliding Scale, Dosing Weight 95. 455, kg, PRN Blood Glucose Results, Start date: 08/28/17 14:11:00 CHILDREN'S AIDE, Duration: 30 day, Stop date: 09/27/17 14:10:00 CHILDREN'S AIDE Notes: (Same as: Humulin R) Roll in palms of hands gently; Do not shake vigorou sly. "single patient use only"(Restricted to patients requiring a dose > 60 units)WASTE: F/P - Black; E - [facility] Trash Bin Stable for 28 days at room temperatureExpires in days from Date Start Date: 08/28/17 Stop Date: 09/01/17 Status: Discontinued Insulin regular 3 unit, 0.03 mL, Route: SUB-Q, Drug form: SOLN, Sliding Scale, Dosing Weight 95. 455, kg, PRN Blood Glucose Results, Start date: 08/28/17 14:11:00 CHILDREN'S AIDE, Duration: 30 day, Stop date: 09/27/17 14:10:00 CHILDREN'S AIDE Notes: (Same as: Humulin R) Roll in palms of hands gently; Do not shake vigorou sly. "single patient use only"(Restricted to patients requiring a dose > 60 units)WASTE: F/P - Black; E - [facility] Trash Bin Stable for 28 days at room temperatureExpires in days from Date Start Date: 08/28/17 Stop Date: 09/01/17 Status: Discontinued Insulin regular 2 unit, 0.02 mL, Route: SUB-Q, Drug form: SOLN, Sliding Scale, Dosing Weight 95. 455, kg, PRN Blood Glucose Results, Start date: 08/28/17 14:11:00 CHILDREN'S AIDE, Duration: 30 day, Stop date: 09/27/17 14:10:00 CHILDREN'S AIDE Notes: (Same as: Humulin R) Roll in palms of hands gently; Do not shake vigorou sly. "single patient use only"(Restricted to patients requiring a dose > 60 units)WASTE: F/P - Black; E - [facility] Trash Bin Stable for 28 days at room temperatureExpires in days from Date Start Date: 08/28/17 Stop Date: 09/01/17 Status: Discontinued Isolyte S PH 7.4 1,000 mL 1,000 mL, Rate: 130 ml/hr, Infuse over: 7.7 hr, Route: IV, Dosing Weight 95.455 kg, Total Volume: 1,000, Start date: 08/30/17 0:01:00 CHILDREN'S AIDE, Duration: 30 day, Sto p date: 09/29/17 0:00:00 CHILDREN'S AIDE, 2.19, m2 Notes: (Same as: Isolyte S PH 7.4) Start Date: 08/30/17 Stop Date: 09/03/17 Status: Discontinued Isolyte S PH 7.4 1,000 mL 1,000 mL, Rate: 135 ml/hr, Infuse over: 7.4 hr, Route: IV, Dosing Weight 95.455 kg, Total Volume: 1,000, Start date: 08/31/17 0:01:00 CHILDREN'S AIDE, Duration: 30 day, Sto p date: 09/30/17 0:00:00 CHILDREN'S AIDE, 2.19, m2 Notes: (Same as: Isolyte S PH 7.4) Start Date: 08/31/17 Stop Date: 09/07/17 Status: Discontinued ketAMINE (ANES) Route: IV, Drug form: INJ, ONCE, Stop date: 08/31/17 12:47:00 CHILDREN'S AIDE Start Date: 08/31/17 Stop Date: 08/31/17 Status: Completed ketAMINE (ANES) Route: IV, Drug form: INJ, ONCE, Stop date: 08/31/17 16:44:00 CHILDREN'S AIDE Start Date: 08/31/17 Stop Date: 08/31/17 Status: Completed Lactated Ringers Injection IV (ANES) 1000 mL Route: IV, Total Volume: 1,000, Start date: 08/31/17 11:40:00 CHILDREN'S AIDE, Stop date: 12:40:00 CHILDREN'S AIDE Start Date: 08/31/17 Stop Date: 08/31/17 Status: Completed Lactated Ringers Injection IV (ANES) 1000 mL Route: IV, Total Volume: 1,000, Start date: 08/28/17 15:51:00 CHILDREN'S AIDE, Stop date: 16:51:00 CHILDREN'S AIDE Start Date: 08/28/17 Stop Date: 08/28/17 Status: Completed Lactated Ringers Injection IV (ANES) 1000 mL Route: IV, Total Volume: 1,000, Start date: 08/30/17 7:24:00 CHILDREN'S AIDE, Stop date: 8:24:00 CHILDREN'S AIDE Start Date: 08/30/17 Stop Date: 08/30/17 Status: Completed Lactated Ringers IV 1,000 mL 1,000 mL, Rate: 125 ml/hr, Infuse over: 8 hr, Route: IV, Dosing Weight 95.455 kg , Total Volume: 1,000, Start date: 08/28/17 9:24:00 CHILDREN'S AIDE, Duration: 30 day, Stop date: 09/27/17 9:23:00 CHILDREN'S AIDE, 2.2, m2 Start Date: 08/28/17 Stop Date: 09/03/17 Status: Discontinued Lasix 20 mg, 2 mL, Route: IVP, Drug form: INJ, ONCE, Dosing Weight 95.455, kg, Start d ate: 09/02/17 8:34:00 CHILDREN'S AIDE, Stop date: 09/02/17 8:34:00 CHILDREN'S AIDE Notes: (Same as: Lasix) Start Date: 09/02/17 Stop Date: 09/02/17 Status: Discontinued lidocaine (ANES) Route: IV, Drug form: INJ, ONCE, Stop date: 08/30/17 8:29:00 CHILDREN'S AIDE Start Date: 08/30/17 Stop Date: 08/30/17 Status: Completed lidocaine (ANES) Route: IV, Drug form: INJ, ONCE, Stop date: 08/28/17 16:23:00 CHILDREN'S AIDE Start Date: 08/28/17 Stop Date: 08/28/17 Status: Completed lidocaine (ANES) Route: IV, Drug form: INJ, ONCE, Stop date: 08/31/17 12:42:00 CHILDREN'S AIDE Start Date: 08/31/17 Stop Date: 08/31/17 Status: Completed lisinopril 20 mg, 1 tab, Route: PO, Drug form: TAB, Daily, Dosing Weight 95.455, kg, Priori ty: NOW, Start date: 08/28/17 14:27:00 CHILDREN'S AIDE, Duration: 30 day, Stop date: 8 9:00:00 CHILDREN'S AIDE Notes: (Same as: Prinivil, Zestril) Start Date: 08/28/17 Stop Date: 09/08/17 Status: Discontinued lisinopril 20 mg oral tablet 20 mg=1 tab, PO, Daily, 0 Refill(s) Start Date: 09/07/17 Status: Ordered Lovenox 40 mg, 0.4 mL, Route: SUB-Q, Drug form: INJ, [id number], Dosing Weight 95.455, kg, Start date: 08/29/17 9:00:00 CHILDREN'S AIDE, Duration: 30 day, Stop date: 09/27/17 9:00:00 CHILDREN'S AIDE Notes: (Same as: Lovenox) Start Date: 08/29/17 Stop Date: 08/31/17 Status: Discontinued Lovenox 40 mg, 0.4 mL, Route: SUB-Q, Drug form: INJ, [id number], Dosing Weight 95.455, kg, Start date: 09/07/17 11:00:00 CHILDREN'S AIDE, Duration: 30 day, Stop date: 10/06/17 11:00: 00 CHILDREN'S AIDE Notes: (Same as: Lovenox) Start Date: 09/07/17 Stop Date: 09/08/17 Status: Discontinued Maalox Advanced Regular Strength SUSP 30 mL, Route: PO, Drug Form: SUSP, Dosing Weight 95.455, kg, QID, PRN Indigestio n, Start date: 09/02/17 23:07:00 CHILDREN'S AIDE, Duration: 30 day, Stop date: 10/02/17 23:0 6:00 CHILDREN'S AIDE Notes: (aluminum hydroxide-magnesium hyd-simethicone [phone]/5ml 30 ml ud S US) Start Date: 09/02/17 Stop Date: 09/08/17 Status: Discontinued melatonin 3 mg oral tablet 3 mg, 1 tab, Route: PO, Drug Form: TAB, Dosing Weight 95.455, kg, Bedtime, Start date: 09/03/17 21:00:00 CHILDREN'S AIDE, Duration: 30 day, Stop date: 10/02/17 21:00:00 CHILDREN'S AIDE Notes: (Same as: Melatonin) Start Date: 09/03/17 Stop Date: 09/08/17 Status: Discontinued melatonin 3 mg oral tablet 3 mg=1 tab, PO, Bedtime, 0 Refill(s) Start Date: 09/07/17 Status: Ordered metoprolol (ANES) Route: IV, Drug form: INJ, ONCE, Stop date: 08/31/17 22:16:00 CHILDREN'S AIDE Start Date: 08/31/17 Stop Date: 08/31/17 Status: Completed midazolam (ANES) Route: IV, Drug form: SOLN, ONCE, Stop date: 08/30/17 8:29:00 CHILDREN'S AIDE Start Date: 08/30/17 Stop Date: 08/30/17 Status: Completed midazolam (ANES) Route: IV, Drug form: SOLN, ONCE, Stop date: 08/28/17 16:18:00 CHILDREN'S AIDE Start Date: 08/28/17 Stop Date: 08/28/17 Status: Completed midazolam (ANES) Route: IV, Drug form: SOLN, ONCE, Stop date: 08/31/17 12:42:00 CHILDREN'S AIDE Start Date: 08/31/17 Stop Date: 08/31/17 Status: Completed midazolam (ANES) Route: IV, Drug form: SOLN, ONCE, Stop date: 08/31/17 20:40:00 CHILDREN'S AIDE Start Date: 08/31/17 Stop Date: 08/31/17 Status: Completed MiraLax 17 gm, 1 pkt, Route: PO, Drug form: PWDR, Daily, Dosing Weight 95.455, kg, PRN C onstipation, Start date: 08/29/17 15:41:00 CHILDREN'S AIDE, Duration: 30 day, Stop date: 08/17 15:40:00 CHILDREN'S AIDE Notes: Dissolve in 8 oz of water or juice.(Same as: Miralax) Start Date: 08/29/17 Stop Date: 09/08/17 Status: Discontinued morphine 1 mg/ml SHIP KEEPER (30 mg/30 mL) INJ Syringe 30 mg 30 mg, 30 mL, Route: IV, Initial Loading Dose: 2 mg, SHIP KEEPER Dose: 1 mg, SHIP KEEPER Lockou t: 10 minutes, Continuous Basal Rate: 0 mg, 4 Hour Limit (In MG): 30, Drug Form: INJ, Continuous, Start date: 08/31/17 22:38:00 CHILDREN'S AIDE, Duration: 30 day, Stop date: 09/30/17... Notes: Dose: Delay: Basal rate: 4hr limit:( Same as:Alhaji) Start Date: 08/31/17 Stop Date: 09/02/17 Status: Discontinued morphine Sulfate 4 mg, 1 mL, Route: IVP, Drug form: SOLN, ONCE, Start date: 09/01/17 1:19:00 CHILDREN'S AIDE, Stop date: 09/01/17 1:19:00 CHILDREN'S AIDE Notes: (Same as:MORPhine Sulfate) Start Date: 09/01/17 Stop Date: 09/01/17 Status: Completed morphine Sulfate 2 mg, 0.5 mL, Route: IVP, Drug form: SOLN, Q2H, Dosing Weight 95.455, kg, PRN Pa in Score 7-10, Start date: 08/28/17 16:38:00 CHILDREN'S AIDE, Duration: 30 day, Stop date: 0 09/27/17 16:37:00 CHILDREN'S AIDE Notes: (Same as:MORPhine Sulfate) Start Date: 08/28/17 Stop Date: 08/31/17 Status: Discontinued naloxone 0.04 mg, 0.1 mL, Route: IVP, Drug form: INJ, Q2MIN, Dosing Weight 95.455, kg, WI N Narcotic Reversal, Start date: 08/31/17 22:38:00 CHILDREN'S AIDE, Duration: 30 day, Stop d ate: 09/30/17 22:37:00 CHILDREN'S AIDE Notes: Same as Narcan Start Date: 08/31/17 Stop Date: 09/08/17 Status: Discontinued neostigmine (ANES) Route: IV, Drug form: INJ, ONCE, Stop date: 08/31/17 22:16:00 CHILDREN'S AIDE Start Date: 08/31/17 Stop Date: 08/31/17 Status: Completed neostigmine (ANES) Route: IV, Drug form: INJ, ONCE, Stop date: 08/28/17 16:32:00 CHILDREN'S AIDE Start Date: 08/28/17 Stop Date: 08/28/17 Status: Completed [place] 10/325 oral tablet 2 tab, Route: PO, Drug Form: TAB, Dosing Weight 95.455, kg, Q4H, PRN Pain Score 4-6, Start date: 08/28/17 16:38:00 CHILDREN'S AIDE, Duration: 30 day, Stop date: 09/27/17 16 :37:00 CHILDREN'S AIDE Notes: Do not exceed 4gm/day of acetaminophen. (Same as: [place] 325/10) Start Date: 08/28/17 Stop Date: 08/31/17 Status: Discontinued [place] 10/325 oral tablet 1 tab, Route: PO, Drug Form: TAB, Dosing Weight 95.455, kg, Q4H, PRN Pain Score 1-3, Start date: 08/28/17 16:38:00 CHILDREN'S AIDE, Duration: 30 day, Stop date: 09/27/17 16 :37:00 CHILDREN'S AIDE Notes: Do not exceed 4gm/day of acetaminophen. (Same as: [place] 325/10) Start Date: 08/28/17 Stop Date: 08/31/17 Status: Discontinued ondansetron 4 mg, 2 mL, Route: IVP, Drug form: INJ, Q6H, Dosing Weight 95.455, kg, PRN Nause a & Vomiting, Start date: 08/31/17 22:38:00 CHILDREN'S AIDE, Duration: 30 day, Stop date: 09/30/17 22:37:00 CHILDREN'S AIDE Notes: (Same as: Sumit) MEDICATION WASTE Product Size: 4 mgProduct Was moy: ___ mg Start Date: 08/31/17 Stop Date: 09/08/17 Status: Discontinued ondansetron (ANES) Route: IV, Drug form: INJ, ONCE, Stop date: 08/31/17 22:16:00 CHILDREN'S AIDE Start Date: 08/31/17 Stop Date: 08/31/17 Status: Completed ondansetron (ANES) Route: IV, Drug form: INJ, ONCE, Stop date: 08/30/17 9:31:00 CHILDREN'S AIDE Start Date: 08/30/17 Stop Date: 08/30/17 Status: Completed ondansetron (ANES) Route: IV, Drug form: INJ, ONCE, Stop date: 08/28/17 16:32:00 CHILDREN'S AIDE Start Date: 08/28/17 Stop Date: 08/28/17 Status: Completed propofol (ANES) Route: IV, Drug form: INJ, ONCE, Stop date: 08/30/17 8:29:00 CHILDREN'S AIDE Start Date: 08/30/17 Stop Date: 08/30/17 Status: Completed propofol (ANES) Route: IV, Drug form: INJ, ONCE, Stop date: 08/28/17 16:23:00 CHILDREN'S AIDE Start Date: 08/28/17 Stop Date: 08/28/17 Status: Completed propofol (ANES) Route: IV, Drug form: INJ, ONCE, Stop date: 08/31/17 12:42:00 CHILDREN'S AIDE Start Date: 08/31/17 Stop Date: 08/31/17 Status: Completed propofol (ANES) Route: IV, Drug form: INJ, ONCE, Stop date: 08/31/17 19:25:00 CHILDREN'S AIDE Start Date: 08/31/17 Stop Date: 08/31/17 Status: Completed Reglan 10 mg, 2 mL, Route: IVP, Drug form: INJ, Q6H, Dosing Weight 95.455, kg, PRN Naus ea & Vomiting, Start date: 09/02/17 5:24:00 CHILDREN'S AIDE, Duration: 30 day, Stop date: 10/02/17 5:23:00 CHILDREN'S AIDE Notes: (Same as: Reglan) Start Date: 09/02/17 Stop Date: 09/07/17 Status: Discontinued rocuronium (ANES) Route: IV, Drug form: INJ, ONCE, Stop date: 08/30/17 8:29:00 CHILDREN'S AIDE Start Date: 08/30/17 Stop Date: 08/30/17 Status: Completed rocuronium (ANES) Route: IV, Drug form: INJ, ONCE, Stop date: 08/28/17 16:23:00 CHILDREN'S AIDE Start Date: 08/28/17 Stop Date: 08/28/17 Status: Completed rocuronium (ANES) Route: IV, Drug form: INJ, ONCE, Stop date: 08/31/17 12:42:00 CHILDREN'S AIDE Start Date: 08/31/17 Stop Date: 08/31/17 Status: Completed rocuronium (ANES) Route: IV, Drug form: INJ, ONCE, Stop date: 08/31/17 18:40:00 CHILDREN'S AIDE Start Date: 08/31/17 Stop Date: 08/31/17 Status: Completed rocuronium (ANES) Route: IV, Drug form: INJ, ONCE, Stop date: 08/31/17 16:44:00 CHILDREN'S AIDE Start Date: 08/31/17 Stop Date: 08/31/17 Status: Completed senna 8.6 mg oral tablet 8.6 mg, 1 tab, Route: PO, Drug Form: TAB, Dosing Weight 95.455, kg, Bedtime, Sta rt date: 08/29/17 21:00:00 CHILDREN'S AIDE, Duration: 30 day, Stop date: 09/27/17 21:00:[address] Notes: (Same as: Senokot) Start Date: 08/29/17 Stop Date: 09/08/17 Status: Discontinued Sodium Chloride 0.9% (titrate) 250 mL 250 mL, Rate: To prime line and flush remaining blood products., Dosing Weight 9 5.455, kg, Route: IV, Total Volume: 250, Start Date: 09/02/17 8:37:00 CHILDREN'S AIDE, Durat ion: 1 day, Stop date: 09/03/17 8:36:00 CHILDREN'S AIDE, Replace Every: 24 hr Start Date: 09/02/17 Stop Date: 09/03/17 Status: Completed Sodium Chloride 0.9% (titrate) 250 mL 250 mL, Rate: To prime line and flush remaining blood products., Dosing Weight 9 5.455, kg, Route: IV, Total Volume: 250, Start Date: 09/02/17 8:37:00 CHILDREN'S AIDE, Durat ion: 1 day, Stop date: 09/03/17 8:36:00 CHILDREN'S AIDE, Replace Every: 24 hr Start Date: 09/02/17 Stop Date: 09/03/17 Status: Completed sugammadex 1,500 mg, 15 mL, Route: IV, Drug form: SOLN, ONCE, Start date: 08/30/17 13:56:00 CHILDREN'S AIDE, Stop date: 08/30/17 13:56:00 CHILDREN'S AIDE Notes: (Same as: Bridion) Start Date: 08/30/17 Stop Date: 09/04/17 Status: Completed sugammadex 200 mg, 2 mL, Route: IV, Drug form: SOLN, ONCE, Start date: 08/30/17 13:54:00 CS T, Stop date: 08/30/17 13:54:00 CHILDREN'S AIDE Notes: (Same as: Bridion) Start Date: 08/30/17 Stop Date: 09/04/17 Status: Completed sugammadex (ANES) Route: IV, Drug form: SOLN, ONCE, Stop date: 08/30/17 9:31:00 CHILDREN'S AIDE Start Date: 08/30/17 Stop Date: 08/30/17 Status: Completed tramadol 100 mg, 2 tab, Route: PO, Drug form: TAB, Q6H, Dosing Weight 95.455, kg, PRN Jose Cruz n Score 1-3, Start date: 09/03/17 10:00:00 CHILDREN'S AIDE, Duration: 30 day, Stop date: 01/15 9:59:00 CHILDREN'S AIDE Notes: Not to exceed 400mg/day. (Same As: Ultram) Start Date: 09/03/17 Stop Date: 09/08/17 Status: Discontinued tramadol 50 mg, 1 tab, Route: PO, Drug form: TAB, Q6H, Dosing Weight 95.455, kg, PRN Pain Score 1-3, Start date: 09/03/17 9:21:00 CHILDREN'S AIDE, Duration: 30 day, Stop date: 10/03 9:20:00 CHILDREN'S AIDE Notes: Not to exceed 400mg/day. (Same As: Ultram) Start Date: 09/03/17 Stop Date: 09/03/17 Status: Discontinued Tums 500 mg, 1 tab, Route: CHEW, Drug form: CHEWTAB, TID, Dosing Weight 95.455, kg, P RN Indigestion, Start date: 09/03/17 14:16:00 CHILDREN'S AIDE, Duration: 30 day, Stop date: 10/03/17 14:15:00 CHILDREN'S AIDE Notes: (Same As: Tums)Calcium Carbonate 500 vy=949 mg elemental calcium Dose=_ mg calcium carbonate ( mg elemental calcium) Start Date: 09/03/17 Stop Date: 09/08/17 Status: Discontinued Tylenol 650 mg, 2 tab, Route: PO, Drug form: TAB, Q6H, Dosing Weight 95.455, kg, Start d ate: 09/03/17 0:00:00 CHILDREN'S AIDE, Duration: 30 day, Stop date: 10/02/17 18:00:00 CHILDREN'S AIDE Notes: Do not exceed 4 gm/day. (Same as: Tylenol) Start Date: 09/03/17 Stop Date: 09/03/17 Status: Discontinued Tylenol with Codeine #3 oral tablet 1 tab, Route: PO, Drug Form: TAB, Dosing Weight 95.455, kg, Q6H, PRN Pain Score 1-3, Start date: 09/03/17 10:02:00 CHILDREN'S AIDE, Duration: 30 day, Stop date: 10/03/17 10 :01:00 CHILDREN'S AIDE Notes: Do not exceed 4gm/day of acetaminophen. (Same as: Tylenol with Codeine # 3) Start Date: 09/03/17 Stop Date: 09/08/17 Status: Discontinued vasopressin (ANES) Route: IV, Drug form: INJ, ONCE, Stop date: 08/28/17 16:32:00 CHILDREN'S AIDE Start Date: 08/28/17 Stop Date: 08/28/17 Status: Completed Results BLOOD BANK RESULTS 1 2 3 Most recent to oldest [Reference Range]: O POS *Unknown* (09/02/17 9:38 AM) O POS *Unknown* (08/31/17 12:52 AM) O POS *Unknown* (08/28/17 10:53 AM) ABO/Rh Negative (09/02/17 9:38 AM) Negative (08/31/17 12:52 AM) Negative (08/28/17 10:53 AM) Antibody Scrn Product available (09/02/17 11:56 AM) Product available (09/02/17 8:37 AM) RBC product ELECTROLYTES 1 2 3 Most recent to oldest [Reference Range]: 135 mEq/L (09/08/17 5:08 AM) 136 mEq/L (09/07/17 5:16 AM) 139 mEq/L (09/04/17 5:52 AM) Sodium Lvl [135-145 mEq/L] 4.5 mEq/L (09/08/17 5:08 AM) 4.5 mEq/L (09/07/17 5:16 AM) 4.1 mEq/L (09/04/17:52 AM) Potassium Lvl [3.5-5.1 mEq/L] 102 mEq/L (09/08/17 5:08 AM) 101 mEq/L (09/07/17 5:16 AM) 104 mEq/L (09/04/17:52 AM) Chloride Lvl [95-109 mEq/L] 22 mEq/L *LOW* (09/08/17:08 AM) 25 mEq/L (09/07/17 5:16 AM) 31 mEq/L (09/04/17:52 AM) CO2 [24-32 mEq/L] 15.5 mEq/L (09/08/17:08 AM) 14.5 mEq/L (09/07/17:16 AM) 8.1 mEq/L *LOW* (09/04/17 5:52 AM) AGAP [10.0-20.0 mEq/L] CHEM PANEL 1 2 3 Most recent to oldest [Reference Range]: 0.70 mg/dL (09/08/17 5:08 AM) 0.71 mg/dL (09/07/17:16 AM) 0.62 mg/dL (09/04/17:52 AM) Creatinine Lvl [0.50-1.40 mg/dL] 98 mL/min/1.73m2 1 *NA* (09/08/17 5:08 AM) 97 mL/min/1.73m2 2 *NA* (09/07/17 5:16 AM) 103 mL/min/1.73m2 3 *NA* (09/04/17:52 AM) eGFR 12 mg/dL (09/08/17 5:08 AM) 10 mg/dL (09/07/17:16 AM) 12 mg/dL (09/04/17 5:52 AM) BUN [7-22 mg/dL] 170 mg/dL *HI* (09/08/17 5:08 AM) 197 mg/dL *HI* (09/07/17 5:16 AM) 157 mg/dL *HI* (09/04/17 5:52 AM) Glucose Lvl [70-99 mg/dL] 8.5 mg/dL (09/08/17 5:08 AM) 8.7 mg/dL (09/07/17 5:16 AM) 8.5 mg/dL (09/04/17 5:52 AM) Calcium Lvl [8.5-10.5 mg/dL] 34.0 uMol/L (09/02/17 3:15 PM) Ammonia [<=45.0 uMol/L] 1Result Comment: The eGFR is calculated using the [...] from the National [employer] Education Program ( [employer]) which additionally recommends that when the eGFR is used in patients with extremes of body mass index for purposes of drug dosing, the eGFR should be mul tiplied by the estimated BMI. 2Result Comment: The eGFR is calculated using the [...] from the [employer] Program ( [employer]) which additionally recommends that when the eGFR is used in patients with extremes of body mass index for purposes of drug dosing, the eGFR should be mul tiplied by the estimated BMI. 3Result Comment: The eGFR is calculated using the [...] from the [employer] Education Program ( [employer]) which additionally recommends that when the eGFR is used in patients with extremes of body mass index for purposes of drug dosing, the eGFR should be mul tiplied by the estimated BMI. URINE AND STOOL 1 2 3 Most recent to oldest [Reference Range]: Clear (09/02/17 3:15 PM) UA Turbidity [Clear] Yellow *NA* (09/02/17 3:15 PM) UA Color [Yellow] 5.0 (09/02/17 3:15 PM) UA pH [5.0-8.0] 1.018 (09/02/17 3:15 PM) UA Spec Grav [<=1.030] Negative mg/dL *NA* (09/02/17 3:15 PM) UA Glucose [Negative mg/dL] Moderate *ABN* (09/02/17 3:15 PM) UA Blood [Negative] Negative mg/dL *NA* (09/02/17 3:15 PM) UA Ketones [Negative mg/dL] 20 mg/dL *ABN* (09/02/17 3:15 PM) UA Protein [Negative mg/dL] <=1.0 mg/dL *NA* (09/02/17 3:15 PM) UA Urobilinogen [0.1-1.0 mg/dL] Negative *NA* (09/02/17 3:15 PM) UA Bili [Negative] Negative (09/02/17 3:15 PM) UA Leuk Est [Negative] Negative (09/02/17 3:15 PM) UA Nitrite [Negative] 3 /HPF (09/02/17 3:15 PM) UA WBC [0-5 /HPF] 18 /HPF *HI* (09/02/17 3:15 PM) UA RBC [0-2 /HPF] Occasional /HPF *NA* (09/02/17 3:15 PM) UA Bacteria [None Seen /HPF] None Seen *NA* (09/02/17 3:15 PM) UA Sq Epi 7 /LPF *HI* (09/02/17 3:15 PM) UA Hyal Cast [0-2 /LPF] Few /LPF *NA* (09/02/17 3:15 PM) UA Mucus [None Seen /LPF] HEMATOLOGY 1 2 3 Most recent to oldest [Reference Range]: 14.4 K/CMM *HI* (09/08/17 5:08 AM) 12.2 K/CMM *HI* (09/07/17 5:16 AM) 11.3 K/CMM *HI* (09/06/17 5:38 AM) WBC [3.7-10.4 K/CMM] 2.95 M/CMM *LOW* (09/08/17 5:08 AM) 2.95 M/CMM *LOW* (09/07/17 5:16 AM) 2.64 M/CMM *LOW* (09/06/17 5:38 AM) RBC [4.70-6.10 M/CMM] 9.0 g/dL *LOW* (09/08/17 5:08 AM) 9.0 g/dL *LOW* (09/07/17 5:16 AM) 8.1 g/dL *LOW* (09/06/17 5:38 AM) Hgb [14.0-18.0 g/dL] 26.6 % *LOW* (09/08/17 5:08 AM) 26.4 % *LOW* (09/07/17 5:16 AM) 23.3 % *LOW* (09/06/17 5:38 AM) Hct [42.0-54.0 %] 90.0 fL (09/08/17 5:08 AM) 89.5 fL (09/07/17 5:16 AM) 88.4 fL (09/06/17 5:38 AM) MCV [80.0-94.0 fL] 30.6 pg (09/08/17 5:08 AM) 30.4 pg (09/07/17 5:16 AM) 30.8 pg (09/06/17 5:38 AM) MCH [27.0-31.0 pg] 34.0 g/dL (09/08/17 5:08 AM) 34.0 g/dL (09/07/17 5:16 AM) 34.9 g/dL (09/06/17 5:38 AM) MCHC [32.0-36.0 g/dL] 15.1 % *HI* (09/08/17 5:08 AM) 15.4 % *HI* (09/07/17 5:16 AM) 14.8 % *HI* (09/06/17 5:38 AM) RDW [11.5-14.5 %] 8.2 fL (09/08/17 5:08 AM) 8.1 fL (09/07/17 5:16 AM) 7.9 fL (09/06/17 5:38 AM) MPV [7.4-10.4 fL] 302 K/CMM (09/08/17 5:08 AM) 295 K/CMM (09/07/17 5:16 AM) 236 K/CMM (09/06/17 5:38 AM) Platelet [133-450 K/CMM] 75.2 % *HI* (09/08/17 5:08 AM) 75.8 % *HI* (09/07/17 5:16 AM) 72.0 % (09/06/17 5:38 AM) Segs [45.0-75.0 %] 12.9 % *LOW* (09/08/17 5:08 AM) 13.7 % *LOW* (09/07/17 5:16 AM) 17.4 % *LOW* (09/06/17 5:38 AM) Lymphocytes [20.0-40.0 %] 8.9 % (09/08/17 5:08 AM) 8.3 % (09/07/17 5:16 AM) 8.3 % (09/06/17 5:38 AM) Monocytes [2.0-12.0 %] 2.1 % (09/08/17 5:08 AM) 1.9 % (09/07/17 5:16 AM) 2.0 % (09/06/17 5:38 AM) Eosinophils [0.0-4.0 %] 0.9 % (09/08/17 5:08 AM) 0.3 % (09/07/17 5:16 AM) 0.3 % (09/06/17 5:38 AM) Basophils [0.0-1.0 %] 10.8 K/CMM *HI* (09/08/17 5:08 AM) 9.3 K/CMM *HI* (09/07/17 5:16 AM) 8.2 K/CMM *HI* (09/06/17 5:38 AM) Segs-Bands # [1.5-8.1 K/CMM] 1.9 K/CMM (09/08/17 5:08 AM) 1.7 K/CMM (09/07/17 5:16 AM) 2.0 K/CMM (09/06/17 5:38 AM) Lymphocytes # [1.0-5.5 K/CMM] 1.3 K/CMM *HI* (09/08/17 5:08 AM) 1.0 K/CMM *HI* (09/07/17 5:16 AM) 0.9 K/CMM *HI* (09/06/17 5:38 AM) Monocytes # [0.0-0.8 K/CMM] 0.3 K/CMM (09/08/17 5:08 AM) 0.2 K/CMM (09/07/17 5:16 AM) 0.2 K/CMM (09/06/17 5:38 AM) Eosinophils # [0.0-0.5 K/CMM] 0.1 K/CMM (09/08/17 5:08 AM) 0.1 K/CMM (09/05/17 3:24 AM) 0.1 K/CMM (08/29/17 1:51 AM) Basophils # [0.0-0.2 K/CMM] 18 mm/hr *HI* (08/28/17 10:53 AM) Sed Rate [0-15 mm/hr] 14.6 seconds (09/02/17 3:15 PM) 13.1 seconds (08/28/17 10:53 AM) PT [12.0-14.7 seconds] 1.14 (09/02/17 3:15 PM) 0.99 (08/28/17 10:53 AM) INR [0.85-1.17] 42.4 seconds *HI* (09/07/17 5:16 AM) 60.5 seconds *HI* (09/06/17 5:38 AM) 48.7 seconds *HI* (09/05/17 3:24 AM) PTT [22.9-35.8 seconds] Immunizations Given and Recorded Vaccine Date Status [...] 19; entered on: 08/28/17 Assessment and Plan Extracted from: Title: Progress Note Author: Prince Leanne Quiroz MD [...] in 1-2 weeks after discharge. Please call [phone]. Patient has been cleared by bothPRS and physical therapy. He will be discharge home tomorrow once all the equipment have been delivered by home health services - [place] Rx left in chart by Dr. Ellis [...] current regimen 11.Preop examination Done on admission [facility] home with home health tomorrow Extracted from: Title: Consult Note Author: Dasha Stewart MD Date: 08/28/17 67 yo M currently s/p R total ankle replacement was admitted this AM for management of wound dehiscence. 1.HTN (hypertension) hold home amlodipine. start coreg/lisinopril. hydralazine prn for SBP>180 2.Diabetes ssi & accuchecks. hold home metformin. monitor BG. 3.CAD [...] was communicated to patient. 7.Gout allopurinol Extracted from: Title: Clinical Document Author: Elvis Ellis MD Date: [...] post operative wound dehiscence. - Admit to [facility] [place] - Hospitalist consultation - Plan for I&D with application of wound vac today at 3pm - PRS evaluation and likely intervention. Dr. Jackson is already on board and aware of the patient. - Review preop labs when available - NPO/IVF for now - Start lovenox post op for DVT PPX.
--- OUTSIDE RECORDS SUMMARY | 2019-02-22 14:40 | XMS REPORT | Summary of Care ---
Author Author [facility] Address Unknown Phone Unavailable Encounter HQ Carlosr_hemanth(FIN) [id number] Date(s): 12/04/17 - 01/02/18 [facility] Discharge Disposition: Home or Self Care Attending [...] Active artery stent placement(Confirmed) 1Data migrated from [place] on 03/24/15. Allergies, Adverse Reactions, Alerts Substance [...]
--- OUTSIDE RECORDS SUMMARY | 2019-02-22 14:40 | XMS REPORT | Summary of Care ---
Author Organization Unknown Address Unknown Phone Unavailable Encounter HQ Encntr_alias(FIN) [id number] Date(s): 11/11/14 - 11/11/14 [facility] [address] [place] [address]- Discharge Disposition: Home Physician Attending: Altaf Lira MD Vital Signs No data available for this section Problem List No data available for this section Allergies, Adverse Reactions, Alerts Substance Reaction Severity Status NKDA Active Medications No data available for this section Results No data available for this section Immunizations Vaccine Date Refusal Reason pneumococcal 23-valent vaccine 06/11/13 Procedures Procedure Date Related Diagnosis Body Site Colonoscopy Esophagogastroduodenoscopy Insertion of coronary artery stent Social History No data available for this section Assessment and Plan No data available for this section
--- OUTSIDE RECORDS SUMMARY | 2019-02-22 14:40 | XMS REPORT | Summary of Care ---
Author Author [facility] Organization [facility] Address Unknown Phone Unavailable Encounter HQ Darnell_hemanth(FIN) [id number] Date(s): 06/15/17 - 06/16/17 [facility] [address] [place] [address]- [address] [phone] Discharge Disposition: Home or Self Care Attending Physician: Tracey Rosado MD Admitting Physician: Tracey Rosado MD Referring Physician: Elvis Ellis MD Vital Signs 1 2 3 Most recent to oldest [Reference Range]: 180.34 cm (06/07/17 9:24 AM) Height 98.3 DegF (06/16/17 8:06 AM) 98.0 DegF (06/16/17 4:00 AM) 97.6 DegF (06/16/17 12:00 AM) Temperature Oral [96.4-99.1 DegF] 171/80 mmHg *HI* (06/16/17 8:06 AM) 135/78 mmHg (06/16/17 4:00 AM) 139/76 mmHg (06/16/17 12:00 AM) Blood Pressure [90-140/60-90 mmHg] 18 BRMIN (06/16/17 8:06 AM) 18 BRMIN (06/16/17 4:00 AM) 18 BRMIN (06/16/17 12:00 AM) Respiratory Rate [14-20 BRMIN] 61 bpm (06/16/17 8:06 AM) 65 bpm (06/16/17 4:00 AM) 62 bpm (06/16/17 12:00 AM) Peripheral Pulse Rate [60-100 bpm] 95.455 kg (06/07/17 9:24 AM) Weight 29.35 m2 (06/07/17 9:24 AM) Body Mass Index Problem List Condition Effective Dates Status Health Status Informant BPH (benign Active prostatic hyperplasia)(Confirm ed) CAD (coronary artery Active disease)(Confirmed) Diabetes(Confirmed) Active Gout(Confirmed) Active Hyperlipidemia(Confi Active rmed) HTN Active (hypertension)(Confi rmed) Lumbosacral 05/28/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 Allergies, Adverse Reactions, Alerts Substance Reaction Severity Status NKDA Active Medications acetaminophen (ANES) Route: IV, Drug form: INJ, ONCE, Stop date: 06/15/17 8:14:00 MECHANICAL TEST TECHNICIAN Start Date: 06/15/17 Stop Date: 06/15/17 Status: Completed albuterol-ipratropium 2.5-0.5 mg inhalation solution 3 mL, Route: NEB, Drug Form: SOLN, Dosing Weight 95.455, kg, ONCE, STAT, Start d ate: 06/15/17 6:13:00 MECHANICAL TEST TECHNICIAN, Stop date: 06/15/17 6:13:00 MECHANICAL TEST TECHNICIAN Notes: (Same as: Duoneb) Start Date: 06/15/17 Stop Date: 06/15/17 Status: Discontinued allopurinol 300 mg, 1 tab, Route: PO, Drug form: TAB, Daily, Dosing Weight 95.455, kg, Start date: 06/16/17 9:00:00 MECHANICAL TEST TECHNICIAN, Duration: 30 day, Stop date: 07/16/17 8:59:00 MECHANICAL TEST TECHNICIAN Notes: (Same as: Zyloprim) Start Date: 06/16/17 Stop Date: 06/16/17 Status: Discontinued allopurinol 300 mg oral tablet 300 mg=1 tab, PO, Daily Start Date: 06/07/17 Status: Ordered amLODIPine 5 mg, PO, Daily, 0 Refill(s) Start Date: 06/15/17 Status: Ordered amLODIPine 5 mg, 1 tab, Route: PO, Drug form: TAB, Daily, Dosing Weight 95.455, kg, Start d ate: 06/16/17 9:00:00 MECHANICAL TEST TECHNICIAN, Duration: 30 day, Stop date: 07/16/17 8:59:00 MECHANICAL TEST TECHNICIAN Notes: (Same as: Norvasc) Start Date: 06/16/17 Stop Date: 06/16/17 Status: Discontinued Ancef + sterile water 10 mL 1 gm, Route: IV, ABXQ8H, Dosing Weight 95.455, kg, Start date: 06/15/17 11:00:00 MECHANICAL TEST TECHNICIAN, Duration: 3 doses or times, Stop date: 06/16/17 10:59:00 MECHANICAL TEST TECHNICIAN, ABX Indicati on: Surgical Prophylaxis Notes: (Same As: Ancef, Kefzol) MEDICATION WASTE Product Size: 1000 mgP roduct Wasted: ___ mg Start Date: 06/15/17 Stop Date: 06/15/17 Status: Deleted Ancef + sterile water 10 mL 1 gm, Route: IV, ABXQ8H, Dosing Weight 95.455, kg, Start date: 06/15/17 16:00:00 MECHANICAL TEST TECHNICIAN, Duration: 3 doses or times, Stop date: 06/16/17 8:00:00 MECHANICAL TEST TECHNICIAN, ABX Indicatio n: Surgical Prophylaxis Notes: (Same As: Ancef, Kefzol) MEDICATION WASTE Product Size: 1000 mgP roduct Wasted: ___ mg Start Date: 06/15/17 Stop Date: 06/16/17 Status: Completed ANES acetaminophen 1,000 mg, 2 tab, Route: PO, Drug form: TAB, ONCE, Dosing Weight 95.455, kg, PRN Pain Score 1-3, Start date: 06/15/17 10:49:00 MECHANICAL TEST TECHNICIAN Notes: Max acetaminophen 4000 mg/day (4 gm/day). (Same as: Tylenol Extra Streng th) Start Date: 06/15/17 Stop Date: 06/15/17 Status: Discontinued ANES albuterol 0.083% inhalation solution 2.49 mg, Route: NEB, Q20Min, Dosing Weight 95.455, kg, PRN Wheezing, Priority: S TAT, Start date: 06/15/17 10:49:00 MECHANICAL TEST TECHNICIAN, Duration: 30 day, Stop date: 07/15/17 10 :48:00 MECHANICAL TEST TECHNICIAN Start Date: 06/15/17 Stop Date: 06/15/17 Status: Discontinued ANES diphenhydrAMINE 12.5 mg, 0.25 mL, Route: IVP, Drug form: INJ, Q6H, Dosing Weight 95.455, kg, PRN Itching, Start date: 06/15/17 10:49:00 MECHANICAL TEST TECHNICIAN, Duration: 30 day, Stop date: 10:48:00 MECHANICAL TEST TECHNICIAN Notes: (Same as: Benadryl) Start Date: 06/15/17 Stop Date: 06/15/17 Status: Discontinued ANES esmolol 10 mg, 1 mL, Route: IVP, Drug form: INJ, Q5Min, Dosing Weight 95.455, kg, PRN Ot her -See Comment, Start date: 06/15/17 10:49:00 MECHANICAL TEST TECHNICIAN, Duration: 5 doses or times, Stop date: Limited # of times Notes: (Same as: Brevibloc) Start Date: 06/15/17 Stop Date: 06/15/17 Status: Discontinued ANES flumazenil 0.2 mg, 2 mL, Route: IVP, Drug form: INJ, PRN, Dosing Weight 95.455, kg, PRN Octavio zodiazepine Reversal, Initial dose, Start date: 06/15/17 10:49:00 MECHANICAL TEST TECHNICIAN, Duration: 30 day, Stop date: 07/15/17 10:48:00 MECHANICAL TEST TECHNICIAN Notes: (Same as: Romazicon) Start Date: 06/15/17 Stop Date: 06/15/17 Status: Discontinued ANES hydrALAZINE 10 mg, 0.5 mL, Route: IVP, Drug form: INJ, Q20Min, Dosing Weight 95.455, kg, PRN Elevated BP, Start date: 06/15/17 10:49:00 MECHANICAL TEST TECHNICIAN, Duration: 2 doses or times, Stop date: Limited # of times Notes: (Same as: Apresoline)Push over 5 minutes Start Date: 06/15/17 Stop Date: 06/15/17 Status: Discontinued ANES HYDROmorphone 0.5 mg, 0.5 mL, Route: IVP, Drug form: INJ, Q5Min, Dosing Weight 95.455, kg, PRN Pain Score 7-10, Start date: 06/15/17 10:49:00 MECHANICAL TEST TECHNICIAN, Duration: 4 doses or times, Stop date: Limited # of times Notes: Same as: Dilaudid Start Date: 06/15/17 Stop Date: 06/15/17 Status: Discontinued ANES labetalol 10 mg, 2 mL, Route: IVP, Drug form: INJ, Q5Min, Dosing Weight 95.455, kg, PRN El evated BP, Start date: 06/15/17 10:49:00 MECHANICAL TEST TECHNICIAN, Duration: 5 doses or times, Stop d ate: Limited # of times Notes: (Same as: Normodyne, Trandate)Push over 2 minutes Give bolus over 2-3 mi nutes. Start Date: 06/15/17 Stop Date: 06/15/17 Status: Discontinued ANES meperidine 12.5 mg, 0.25 mL, Route: IVP, Drug form: INJ, Q30Min, Dosing Weight 95.455, kg, PRN Other -See Comment, For shivering, Start date: 06/15/17 10:49:00 MECHANICAL TEST TECHNICIAN, Durati on: 2 doses or times, Stop date: Limited # of times Notes: (Same as: Demerol) "Use Precaution in Elderly, Seizure disorders, and Re nal impairment" Start Date: 06/15/17 Stop Date: 06/15/17 Status: Discontinued ANES naloxone 0.4 mg, 1 mL, Route: IVP, Drug form: INJ, Q2MIN, Dosing Weight 95.455, kg, PRN N arcotic Reversal, Start date: 06/15/17 10:49:00 MECHANICAL TEST TECHNICIAN, Duration: 8 doses or times, Stop date: Limited # of times Notes: Same as Narcan Start Date: 06/15/17 Stop Date: 06/15/17 Status: Discontinued ANES ondansetron 4 mg, 2 mL, Route: IVP, Drug form: INJ, ONCE, Dosing Weight 95.455, kg, PRN Naus ea & Vomiting, Start date: 06/15/17 10:49:00 MECHANICAL TEST TECHNICIAN Notes: (Same as: Sumit) MEDICATION WASTE Product Size: 4 mgProduct Was moy: ___ mg Start Date: 06/15/17 Stop Date: 06/15/17 Status: Discontinued ANES oxyCODONE 5 mg, 1 tab, Route: PO, Drug form: TAB, Q4H, Dosing Weight 95.455, kg, PRN Pain Score 4-6, Start date: 06/15/17 10:49:00 MECHANICAL TEST TECHNICIAN, Duration: 30 day, Stop date: 07/15 10:48:00 MECHANICAL TEST TECHNICIAN Notes: (Same as: Roxicodone) Start Date: 06/15/17 Stop Date: 06/15/17 Status: Discontinued ANES promethazine 6.25 mg, Route: IVPB, ONCE, Dosing Weight 95.455, kg, PRN Nausea & Vomiting, Start date: 06/15/17 10:49:00 MECHANICAL TEST TECHNICIAN Start Date: 06/15/17 Stop Date: 06/16/17 Status: Discontinued aspirin 81 mg tablet, enteric coated 81 mg=1 tab, PO, Daily Start Date: 06/07/17 Status: Ordered atorvastatin 80 mg, 2 tab, Route: PO, Drug form: TAB, Bedtime, Dosing Weight 95.455, kg, Star t date: 06/15/17 21:00:00 MECHANICAL TEST TECHNICIAN, Duration: 30 day, Stop date: 07/15/17 20:59:00 CS T Notes: (Same as: Lipitor) Start Date: 06/15/17 Stop Date: 06/16/17 Status: Discontinued ceFAZolin (ANES) Route: IV, Drug form: INJ, ONCE, Stop date: 06/15/17 8:09:00 MECHANICAL TEST TECHNICIAN Start Date: 06/15/17 Stop Date: 06/15/17 Status: Completed ceFAZolin + sterile water 20 mL 2 gm, Route: IV, ONCALL, Start date: 06/15/17 7:00:00 MECHANICAL TEST TECHNICIAN, Duration: 1 day, Stop date: 06/16/17 6:59:00 MECHANICAL TEST TECHNICIAN, ABX Indication: Surgical Prophylaxis Notes: (Same As: Franklin Scales) MEDICATION WASTE Product Size: 1000 mgP roduct Wasted: ___ mg Start Date: 06/15/17 Stop Date: 06/15/17 Status: Discontinued cinnamon 500 mg oral capsule 1,000 mg=2 cap, PO, BID, # 100 cap, 0 Refill(s) Start Date: 06/07/17 Status: Ordered clopidogrel 75 mg oral tablet 75 mg=1 tab, PO, Daily Start Date: 06/07/17 Stop Date: 06/16/17 Status: Discontinued dexamethasone (ANES) Route: IV, Drug form: INJ, ONCE, Stop date: 06/15/17 10:18:00 MECHANICAL TEST TECHNICIAN Start Date: 06/15/17 Stop Date: 06/15/17 Status: Completed Dextrose 50% Syringe 25 gm, 50 mL, Route: IVP, Drug Form: INJ, Dosing Weight 95.455, kg, PRN, PRN Blo od Glucose Results, Start date: 06/15/17 15:25:00 MECHANICAL TEST TECHNICIAN, Duration: 30 day, Stop da te: 07/15/17 15:24:00 MECHANICAL TEST TECHNICIAN Start Date: 06/15/17 Stop Date: 06/16/17 Status: Discontinued Dextrose 50% Syringe 12.5 gm, 25 mL, Route: IVP, Drug Form: INJ, Dosing Weight 95.455, kg, PRN, PRN B lood Glucose Results, Start date: 06/15/17 15:25:00 MECHANICAL TEST TECHNICIAN, Duration: 30 day, Stop date: 07/15/17 15:24:00 MECHANICAL TEST TECHNICIAN Start Date: 06/15/17 Stop Date: 06/16/17 Status: Discontinued fentaNYL (ANES) Route: IV, Drug form: INJ, ONCE, Stop date: 06/15/17 8:09:00 MECHANICAL TEST TECHNICIAN Start Date: 06/15/17 Stop Date: 06/15/17 Status: Completed glucagon 1 mg, Route: IM, Drug form: PDR/INJ, PRN, Dosing Weight 95.455, kg, PRN Blood Gl ucose Results, Start date: 06/15/17 15:25:00 MECHANICAL TEST TECHNICIAN, Duration: 30 day, Stop date: 09/15/16 15:24:00 MECHANICAL TEST TECHNICIAN Start Date: 06/15/17 Stop Date: 06/16/17 Status: Discontinued glycopyrrolate (ANES) Route: IV, Drug form: INJ, ONCE, Stop date: 06/15/17 10:18:00 MECHANICAL TEST TECHNICIAN Start Date: 06/15/17 Stop Date: 06/15/17 Status: Completed insulin lispro 10 unit, 0.1 mL, Route: SUB-Q, Drug form: SOLN, TID-Before Meals, Dosing Weight 95.455, kg, PRN Blood Glucose Results, Start date: 06/15/17 15:25:00 MECHANICAL TEST TECHNICIAN, Durati on: 30 day, Stop date: 07/15/17 15:24:00 MECHANICAL TEST TECHNICIAN Notes: Roll in palms of hands gently; Do not shake `vigorously. (Same as: Tate og )"Single Patient Use Only "WASTE: F/P - Black; E - Municipal Trash Bin Stabl e for 28 days at room temperature.Expires in days from Date Start Date: 06/15/17 Stop Date: 06/16/17 Status: Discontinued insulin lispro 8 unit, 0.08 mL, Route: SUB-Q, Drug form: SOLN, TID-Before Meals, Dosing Weight 95.455, kg, PRN Blood Glucose Results, Start date: 06/15/17 15:25:00 MECHANICAL TEST TECHNICIAN, Durati on: 30 day, Stop date: 07/15/17 15:24:00 MECHANICAL TEST TECHNICIAN Notes: Roll in palms of hands gently; Do not shake `vigorously. (Same as: Humal og )"Single Patient Use Only "WASTE: F/P - Black; E - Municipal Trash Bin Stabl e for 28 days at room temperature.Expires in days from Date Start Date: 06/15/17 Stop Date: 06/16/17 Status: Discontinued insulin lispro 6 unit, 0.06 mL, Route: SUB-Q, Drug form: SOLN, TID-Before Meals, Dosing Weight 95.455, kg, PRN Blood Glucose Results, Start date: 06/15/17 15:25:00 MECHANICAL TEST TECHNICIAN, Durati on: 30 day, Stop date: 07/15/17 15:24:00 MECHANICAL TEST TECHNICIAN Notes: Roll in palms of hands gently; Do not shake `vigorously. (Same as: Humal og )"Single Patient Use Only "WASTE: F/P - Black; E - Municipal Trash Bin Stabl e for 28 days at room temperature.Expires in days from Date Start Date: 06/15/17 Stop Date: 06/16/17 Status: Discontinued insulin lispro 4 unit, 0.04 mL, Route: SUB-Q, Drug form: SOLN, TID-Before Meals, Dosing Weight 95.455, kg, PRN Blood Glucose Results, Start date: 06/15/17 15:25:00 MECHANICAL TEST TECHNICIAN, Durati on: 30 day, Stop date: 07/15/17 15:24:00 MECHANICAL TEST TECHNICIAN Notes: Roll in palms of hands gently; Do not shake `vigorously. (Same as: Humal og )"Single Patient Use Only "WASTE: F/P - Black; E - Municipal Trash Bin Stabl e for 28 days at room temperature.Expires in days from Date Start Date: 06/15/17 Stop Date: 06/16/17 Status: Discontinued insulin lispro 2 unit, 0.02 mL, Route: SUB-Q, Drug form: SOLN, TID-Before Meals, Dosing Weight 95.455, kg, PRN Blood Glucose Results, Start date: 06/15/17 15:25:00 MECHANICAL TEST TECHNICIAN, Durati on: 30 day, Stop date: 07/15/17 15:24:00 MECHANICAL TEST TECHNICIAN Notes: Roll in palms of hands gently; Do not shake `vigorously. (Same as: Tate )"Single Patient Use Only "WASTE: F/P - Black; E - Municipal Trash Bin Stabl e for 28 days at room temperature.Expires in days from Date Start Date: 06/15/17 Stop Date: 06/16/17 Status: Discontinued Lactated Ringers Injection IV (ANES) 1000 mL Route: IV, Total Volume: 1,000, Start date: 06/15/17 7:20:00 MECHANICAL TEST TECHNICIAN, Stop date: 8:20:00 MECHANICAL TEST TECHNICIAN Start Date: 06/15/17 Stop Date: 06/15/17 Status: Completed Lactated Ringers Injection IV 1,000 mL 1,000 mL, Rate: 125 ml/hr, Infuse over: 8 hr, Route: IV, Dosing Weight 95.455 kg , Total Volume: 1,000, Start date: 06/15/17 10:49:00 MECHANICAL TEST TECHNICIAN, Duration: 30 day, Stop date: 07/15/17 10:48:00 MECHANICAL TEST TECHNICIAN, 2.2, m2 Start Date: 06/15/17 Stop Date: 06/15/17 Status: Discontinued Lactated Ringers Injection IV 1,000 mL 1,000 mL, Rate: 25 ml/hr, Infuse over: 40 hr, Route: IV, Dosing Weight 95.455 kg , Total Volume: 1,000, Start date: 06/15/17 6:13:00 MECHANICAL TEST TECHNICIAN, Duration: 30 day, Stop date: 07/15/17 6:12:00 MECHANICAL TEST TECHNICIAN, 2.2, m2 Start Date: 06/15/17 Stop Date: 06/15/17 Status: Discontinued lidocaine (ANES) Route: IV, Drug form: INJ, ONCE, Stop date: 06/15/17 8:14:00 MECHANICAL TEST TECHNICIAN Start Date: 06/15/17 Stop Date: 06/15/17 Status: Completed Lovenox 40 mg, SUB-Q, Daily, 0 Refill(s) Start Date: 06/15/17 Stop Date: 06/16/17 Status: Discontinued Lovenox 40 mg, 0.4 mL, Route: SUB-Q, Drug form: INJ, [id number], Dosing Weight 95.455, kg, Start date: 06/15/17 11:00:00 MECHANICAL TEST TECHNICIAN, Stop date: 07/16/17 9:00:00 MECHANICAL TEST TECHNICIAN Notes: (Same as: Lovenox) Start Date: 06/15/17 Stop Date: 06/16/17 Status: Discontinued Lovenox 40 mg/0.4 mL subcutaneous solution 40 mg, SUB-Q, Daily, X 14 day, # 14 syr, 0 Refill(s), Pharmacy: [facility]/pharmacy #[id number] Start Date: 06/16/17 Stop Date: 06/30/17 Status: Ordered meloxicam 15 mg oral tablet 15 mg, PO, Daily, 0 Refill(s) Start Date: 06/15/17 Stop Date: 06/16/17 Status: Discontinued midazolam (ANES) Route: IV, Drug form: SOLN, ONCE, Stop date: 06/15/17 8:04:00 MECHANICAL TEST TECHNICIAN Start Date: 06/15/17 Stop Date: 06/15/17 Status: Completed Multiple Vitamins oral tablet 1 tab, PO, Daily Start Date: 06/07/17 Status: Ordered neostigmine (ANES) Route: IV, Drug form: INJ, ONCE, Stop date: 06/15/17 10:18:00 MECHANICAL TEST TECHNICIAN Start Date: 06/15/17 Stop Date: 06/15/17 Status: Completed Cordova 10/325 oral tablet 1 tab, Route: PO, Drug Form: TAB, Dosing Weight 95.455, kg, ONCE, Start date: 14:25:00 MECHANICAL TEST TECHNICIAN, Stop date: 06/16/17 14:25:00 MECHANICAL TEST TECHNICIAN Notes: Do not exceed 4gm/day of acetaminophen. (Same as: Cordova 325/10) Start Date: 06/16/17 Stop Date: 06/16/17 Status: Completed Cordova 10/325 oral tablet 1 tab, Route: PO, Drug Form: TAB, Dosing Weight 95.455, kg, Q6H, Start date: 12:00:00 MECHANICAL TEST TECHNICIAN, Duration: 30 day, Stop date: 07/15/17 11:59:00 MECHANICAL TEST TECHNICIAN Notes: Do not exceed 4gm/day of acetaminophen. (Same as: Cordova 325/10) Start Date: 06/15/17 Stop Date: 06/16/17 Status: Discontinued ondansetron (ANES) Route: IV, Drug form: INJ, ONCE, Stop date: 06/15/17 10:18:00 MECHANICAL TEST TECHNICIAN Start Date: 06/15/17 Stop Date: 06/15/17 Status: Completed propofol (ANES) Route: IV, Drug form: INJ, ONCE, Stop date: 06/15/17 8:09:00 MECHANICAL TEST TECHNICIAN Start Date: 06/15/17 Stop Date: 06/15/17 Status: Completed rocuronium (ANES) Route: IV, Drug form: INJ, ONCE, Stop date: 06/15/17 8:14:00 MECHANICAL TEST TECHNICIAN Start Date: 06/15/17 Stop Date: 06/15/17 Status: Completed tamsulosin 0.4 mg oral capsule 0.4 mg=1 cap, PO, Daily Start Date: 06/07/17 Status: Ordered Results ELECTROLYTES Most recent to 1 2 oldest [Reference Range]: Sodium Lvl [135-145 134 mEq/L 134 mEq/L mEq/L] *LOW* *LOW* (06/15/17 1:29 PM) (06/07/17 9:48 AM) Potassium Lvl 4.5 mEq/L 4.5 mEq/L [3.5-5.1 mEq/L] (06/15/17 1:29 PM) (06/07/17 9:48 AM) Chloride Lvl [95-109 102 mEq/L 99 mEq/L mEq/L] (06/15/17 1:29 PM) (06/07/17 9:48 AM) CO2 [24-32 mEq/L] 26 mEq/L 28 mEq/L (06/15/17 1:29 PM) (06/07/17 9:48 AM) AGAP [10.0-20.0 10.5 mEq/L 11.5 mEq/L mEq/L] (06/15/17 1:29 PM) (06/07/17 9:48 AM) CHEM PANEL Most recent to 1 2 oldest [Reference Range]: Creatinine Lvl 1.18 mg/dL 1.01 mg/dL [0.50-1.40 mg/dL] (06/15/17 1:29 PM) (06/07/17 9:48 AM) eGFR 63 mL/min/1.73m2 1 77 mL/min/1.73m2 2 *NA* *NA* (06/15/17 1:29 PM) (06/07/17 9:48 AM) BUN [7-22 mg/dL] 13 mg/dL 15 mg/dL (06/15/17 1:29 PM) (06/07/17 9:48 AM) B/C Ratio [6-25] 11 (06/15/17 1:29 PM) Glucose Lvl [70-99 205 mg/dL 117 mg/dL mg/dL] *HI* *HI* (06/15/17 1:29 PM) (06/07/17 9:48 AM) Total Protein 7.0 g/dL [6.4-8.4 g/dL] (06/15/17 1:29 PM) Albumin Lvl [3.5-5.0 3.6 g/dL g/dL] (06/15/17 1:29 PM) Globulin [2.7-4.2 3.4 g/dL g/dL] (06/15/17 1:29 PM) A/G Ratio [0.7-1.6] 1.1 (06/15/17 1:29 PM) Calcium Lvl 8.5 mg/dL 9.3 mg/dL [8.5-10.5 mg/dL] (06/15/17 1:29 PM) (06/07/17 9:48 AM) Phosphorus [2.5-4.5 2.6 mg/dL mg/dL] (06/15/17 1:29 PM) Magnesium Lvl 1.8 mg/dL [1.8-2.4 mg/dL] (06/15/17 1:29 PM) ALT [0-65 unit/L] 40 unit/L (06/15/17 1:29 PM) AST [0-37 unit/L] 22 unit/L (06/15/17 1:29 PM) Alk Phos [39-136 73 unit/L unit/L] (06/15/17 1:29 PM) Bili Total [0.2-1.3 0.5 mg/dL mg/dL] (06/15/17 1:29 PM) 1Result Comment: The eGFR is calculated using [...] be mul tiplied by the estimated BMI. SPECIAL CHEMISTRY Most recent to 1 2 oldest [Reference Range]: Hgb A1C [<=5.6 %] 6.2 % *HI* (06/07/17 9:48 AM) URINE AND STOOL Most recent to 1 2 oldest [Reference Range]: UA Turbidity [Clear] Clear (06/07/17 9:48 AM) UA Color [Yellow] Yellow *NA* (06/07/17 9:48 AM) UA pH [5.0-8.0] 6.0 (06/07/17 9:48 AM) UA Spec Grav 1.010 [<=1.030] (06/07/17 9:48 AM) UA Glucose [Negative Negative mg/dL mg/dL] (06/07/17 9:48 AM) UA Blood [Negative] Negative (06/07/17 9:48 AM) UA Ketones [Negative Negative mg/dL mg/dL] *NA* (06/07/17 9:48 AM) UA Protein [Negative Negative mg/dL mg/dL] (06/07/17 9:48 AM) UA Urobilinogen 0.2 EU/dL [0.1-1.0 EU/dL] (06/07/17 9:48 AM) UA Bili [Negative] Negative *NA* (06/07/17 9:48 AM) UA Leuk Est Negative [Negative] (06/07/17 9:48 AM) UA Nitrite Negative [Negative] (06/07/17 9:48 AM) UA WBC [None Seen] None Seen (06/07/17 9:48 AM) UA RBC [0-2] None Seen (06/07/17 9:48 AM) UA Bacteria [None None Seen Seen] (06/07/17 9:48 AM) UA Sq Epi [Few /LPF] Rare /LPF (06/07/17 9:48 AM) Micro? Performed (06/07/17 9:48 AM) HEMATOLOGY Most recent to 1 2 oldest [Reference Range]: WBC [3.7-10.4 K/CMM] 13.4 K/CMM *HI* (06/15/17 1:29 PM) RBC [4.70-6.10 4.65 M/CMM M/CMM] *LOW* (06/15/17 1:29 PM) Hgb [14.0-18.0 g/dL] 14.5 g/dL 15.4 g/dL (06/15/17 1:29 PM) (06/07/17 9:48 AM) Hct [42.0-54.0 %] 42.5 % 44.8 % (06/15/17 1:29 PM) (06/07/17 9:48 AM) MCV [80.0-94.0 fL] 91.5 fL (06/15/17 1:29 PM) MCH [27.0-31.0 pg] 31.2 pg *HI* (06/15/17 1:29 PM) MCHC [32.0-36.0 34.1 g/dL g/dL] (06/15/17 1:29 PM) RDW [11.5-14.5 %] 13.0 % (06/15/17 1:29 PM) Platelet [133-450 259 K/CMM K/CMM] (06/15/17 1:29 PM) MPV [7.4-10.4 fL] 7.8 fL (06/15/17 1:29 PM) Segs [45.0-75.0 %] 92.9 % *HI* (06/15/17 1:29 PM) Lymphocytes 5.8 % [20.0-40.0 %] *LOW* (06/15/17 1:29 PM) Monocytes [2.0-12.0 1.1 % %] *LOW* (06/15/17 1:29 PM) Eosinophils [0.0-4.0 0.1 % %] (06/15/17 1:29 PM) Basophils [0.0-1.0 0.1 % %] (06/15/17 1:29 PM) Segs-Bands # 12.4 K/CMM [1.5-8.1 K/CMM] *HI* (06/15/17 1:29 PM) Lymphocytes # 0.8 K/CMM [1.0-5.5 K/CMM] *LOW* (06/15/17 1:29 PM) Monocytes # [0.0-0.8 0.1 K/CMM K/CMM] (06/15/17 1:29 PM) Immunizations Given and Recorded Vaccine Date Status Refusal Reason pneumococcal 23-valent vaccine 06/11/13 Given Procedures Procedure Date Related Diagnosis Body Site Colonoscopy Esophagogastroduodenoscopy Insertion of coronary artery stent Operation Operation Social History Social History Type Response Alcohol Current, Type Beer. Frequency: 1-2 times per week. Smoking Status Former smoker; Exposure to Tobacco Smoke None; Cigarette Smoking Last 365 Days No; Reg Smoking Cessation Counseling No; Stopped at age: 19; Assessment and Plan Extracted from: Title: [facility] Hospitalist Discharge Author: Tracey Rosado MD Date: 06/16/17 Summary [facility] Hospitalist Discharge Summary Code Status: Full [...] seen by Dr. Ellis. Will be prescribed Cordova and Zofran. Needs Lovenox on discharge x [...] > 30 minutes Tracey Rosado MD Hospitalist [facility] Extracted from: Title: Clinical Document Author: Elvis Ellis MD Date: 06/16/17 ORTHO PROGRESS NOTE Pt resting in bed, eating breakfast. Slept well. Nerve block working well. No complaints of pain at this time. VITALS: VitalsTmp(F)Tmp(C)[id number] 06/16 08:0698.336.76unbv379/80---[id number]------ 06/16 04:0098.036.51mptw074/78---[id number]------ 06/16 00:0097.636.97qntz291/76---[id number]------ 06/15 20:0397.936.39nohi257/93---103473------ 06/15 16:1298.136.86kesr317/[id number]------ 24 Hr Tmax: 98.3F (36.83c) at 06/16 08:0624 Hr Tmin: 97.4F (36.33c) at 06/15 10:21 36 Hr Tmax: 98.3F (36.83c) at 06/16 08:0636 Hr Tmin: 97.4F (36.33c) at 06/15 10:21 [...] home with f/u in 2 weeks. Extracted from: Title: [facility] Hospitalist Admission Author: Tracey Rosado MD Date: 06/15/17 H&P [facility] Providers Hospitalist Admission History & Physical Code Status: Full Code [Ordered] Chief [...] (29) Active Scheduled Meds (6): 06/15/17 acetaminophen-hydrocodone (Cordova 10/325 oral tablet) 1 tab PO Q6H 06/16/17 allopurinol 300 mg PO Daily 06/16/17 amLODIPine 5 mg PO Daily 06/15/17 atorvastatin 80 mg PO Bedtime 06/15/17 ceFAZolin (Ancef) 1 gm IVPB ABXQ8H 06/15/17 enoxaparin (Lovenox) 40 mg SUB-Q [id number] Unscheduled Meds (1): 06/15/17 ceFAZolin + sterile [...] mL 1,000 mL 125 ml/hr Allergies (1) ActiveReaction NKDANone documented Physical Exam: VitalsTmp(F)ElfbzUTRIZfL1RRO2 06/15 13:3097.606437/80--99--- 06/15 11:2097.145233/327941--- 06/15 11:05----99214/373178 3.0L/m 06/15 10:50----67410/809263 3.0L/m 06/15 10:35----83132/674158 3.0L/m 24 Hr Tmax: 97.6F (36.44c) at 06/15 13:30Vital Signs are the last 5 in the [...] 4. HTN 5. CAD Plan: -continue PO Cordova, can add morphine for breakthrough pain -Lovenox x 2 weeks until plavix can be restarted -PT/OT -ISS -continue home antihypertensives Prophylaxis: Lovenox Disposition: likely 1 [place] hospitalization Tracey Rosado MD Hospitalist [facility]
--- OUTSIDE RECORDS SUMMARY | 2019-02-22 14:40 | XMS REPORT | Summary of Care ---
Author Author COLTON LINDSAY D.O. 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 Unavailable Unavailable COLTON ZHENG Unavailable Unavailable HANSEL SETHI, GISELLE COY Unavailable Unavailable Unavailable Unavailable Functional Status Name Dates Details Functional status health issues are not documented Status: Name Dates Details Cognitive status health issues are not documented Status: Problems Name Dates Details Osteoarthritis of both ankles (715.97, M19.071) Status: Active Primary osteoarthritis of right ankle (715.17, M19.071) Status: Active Peripheral vascular disease (443.9, I73.9) Status: Active Dehiscence of operative wound, initial encounter (998.32, T81.31XA) Status: Active BPH without urinary obstruction (600.00, N40.0) Status: Active Encounter for screening colonoscopy (V76.51, Z12.11) Status: Active Need for Tdap vaccination (V06.1, Z23) Status: Active Need for vaccination with 13-polyvalent pneumococcal conjugate vaccine (V03.82, Z23) Status: Active Essential (primary) hypertension (401.9, I10) Status: Active CAD (coronary artery disease) (414.00, I25.10) Status: Active Diabetes mellitus type 2, controlled (250.00, E11.9) Status: Active Nocturia (788.43, R35.1) Status: Active Need for hepatitis C screening test (V73.89, Z11.59) Status: Active Medications Name Dates Details metFORMIN HCl - 1000 MG Oral Tablet TAKE 1 TABLET TWICE DAILY WITH MEALS. Quantity: 180 YEH D.O., JONO-BRUCE * Start : 13-Aug-2018 Active Atorvastatin Calcium 80 MG Oral Tablet TAKE 1 TABLET AT BEDTIME * Quantity: 90 Refills: 1 YEH D.O., JONO-BRUCE * Start : 13-Aug-2018 Active Clopidogrel Bisulfate 75 MG Oral Tablet TAKE 1 TABLET DAILY * Quantity: 90 Refills: 1 YEH D.O., COLTON * Start : 13-Aug-2018 Active Tamsulosin HCl - 0.4 MG Oral Capsule TAKE 1 CAPSULE BY MOUTH EVERY DAY * Quantity: 90 Refills: 1 YEH D.O., COLTON * Start : 13-Aug-2018 Active amLODIPine Besylate 5 MG Oral Tablet 1/2 tablet BID * Quantity: 90 Refills: 1 YEH D.O., COLTON * Start : 13-Aug-2018 Active Multivitamin Adult Oral Tablet TAKE 1 TABLET DAILY. * Refills: 0 * Start : 13-Aug-2018 Active Glucosamine Chondroitin MSM Oral Tablet 2 daily * Refills: 0 * Start : 13-Aug-2018 Active Cinnamon 500 MG Oral Tablet 2 a day * Refills: 0 * Start : 13-Aug-2018 Active Allergies and Adverse Reactions Name Dates Details No Known Drug Allergies (Allergy) Status: Active Past Medical History Name Dates Details History of diabetes mellitus (V12.29, Z86.39) Status: Resolved History of high cholesterol (V12.29, Z86.39) Status: Resolved History of hypertension (V12.59, Z86.79) Status: Resolved Personal history of gout (V12.29, Z87.39) Status: Resolved Procedures Procedure Dates Details [H] LIPID PANEL WITH REFLEX TO DIRECT LDL Date: 21-Feb-2019 [[facility]] CBC (INCLUDES DIFF/PLT) Date: 21-Feb-2019 [[facility]] CMP W/EGFR Date: 21-Feb-2019 [[facility]] TSH, 3RD GENERATION W/REFLEX TO FT4 Date: 21-Feb-2019 [[facility]] HEPATITIS C ANTIBODY Date: 21-Feb-2019 [[facility]] PSA, TOTAL Date: 21-Feb-2019 Immunization Name Dates Details Tdap (Boostrix) Lot #: [id number] on: 13-Aug-2018 Prevnar 13 Intramuscular Suspension Lot #: [id number] on: 13-Aug-2018 Family History Name Dates Details Family history of diabetes mellitus (V18.0, Z83.3) Status: Active Family history of High cholesterol (272.0, E78.00) Status: Active Name Dates Details Family history of diabetes mellitus (V18.0, Z83.3) Status: Active Family history of High cholesterol (272.0, E78.00) Status: Active Family history of essential hypertension (V17.49, Z82.49) Status: Active Social History Name Dates Details - Status: Name Dates Details Never smoker Vital Signs Date Test Result Details :53 BP Systolic 166 mm[Hg] Status: Comments: Location: LUE; Position: Sitting BP Diastolic 88 mm[Hg] Status: Comments: Location: LUE; Position: Sitting Physical Findings 0 Status: Comments: Alcohol Screen - How many times in the past yr have you had 5 (for M) or 4 (for F) or 4 (for all > 65yrs) or more drinks in a day? Heart Rate 67 /min Status: :50 BP Systolic 199 mm[Hg] Status: BP Diastolic 64 mm[Hg] Status: Heart Rate 66 /min Status: Height 71 in Status: Weight 195 lb Status: Body Mass Index Calculated 27.2 kg/m2 Status: Body Surface Area Calculated 2.09 m2 Status: Temperature 98.3 f Status: Comments: Method: Temporal Respiration Rate 16 /min Status: Results Date Description Value Details Results not documented Plan of Care Name Dates Details Planned Observations Planned Goals not documented Planned Encounters Appointment; ADRI HOFFMAN M.D. On: 29-May-2019 11:15 Interventions Provided Medication Changes* amLODIPine Besylate 5 MG Oral Tablet - Renew * Atorvastatin Calcium 80 MG Oral Tablet - Renew * Clopidogrel Bisulfate 75 MG Oral Tablet - Renew * metFORMIN HCl - 1000 MG Oral Tablet - Renew * Tamsulosin HCl - 0.4 MG Oral Capsule - Renew Labs/Procedures/Imaging* [QH] LIPID PANEL WITH REFLEX TO DIRECT LDL; To Be Done: 21 Feb 2019 * [QL[facility]] CBC (INCLUDES DIFF/PLT); To Be Done: 21 Feb 2019 * [[facility]] CMP W/EGFR; To Be Done: 21 Feb 2019 * [[facility]] HEPATITIS C ANTIBODY; To Be Done: 21 Feb 2019 * [[facility]] PSA, TOTAL; To Be Done: 21 Feb 2019 * [QL[facility]] TSH, 3RD GENERATION W/REFLEX TO FT4; To Be Done: 21 Feb 2019 Plan* DM-II - stable. Continue Metformin * Hx Gout - stable. Pt has 1 episode of gout and has been placed on allopurinol. Discussed possibility of weaning mediation. * BPH - stable. Refilled Tasmulosin. Asked Pt to follow-up with urology again as well * CAD/HTN - stable. Continue Plavix. Continue Amlodipine * HLD - stable. Continue Atorvastatin * Will try to obtain prior records from Dr. Altaf Lira * Follow-up in 6 months, sooner if needed Instructions Name Dates Details Instructions not documented Encounters Appointment; ADRI HOFFMAN M.D. Encounter Diagnosis: Problem not documented On: 06-Mar-2017 15:00 Appointment; ADRI HOFFMAN M.D. Encounter Diagnosis: Problem not documented On: 08-May-2017 10:45 Appointment; ADRI HOFFMAN M.D. Encounter Diagnosis: Problem not documented On: 29-May-2017 10:45 Appointment; ADRI HOFFMAN M.D. Encounter Diagnosis: Problem not documented On: 15-Jun-2017 7:00 Appointment; ADRI HOFFMAN M.D. Encounter Diagnosis: Problem not documented On: 26-Jun-2017 10:15 Appointment; ADRI HOFFMAN M.D. Encounter Diagnosis: Problem not documented On: 05-Jul-2017 10:15 Appointment; ADRI HOFFMAN M.D. Encounter Diagnosis: Problem not documented On: 12-Jul-2017 10:00 Appointment; ADRI HOFFMAN M.D. Encounter Diagnosis: Problem not documented On: 26-Jul-2017 13:30 Appointment; ADRI HOFFMAN M.D. Encounter Diagnosis: Problem not documented On: 02-Aug-2017 14:00 Appointment; ADRI HOFFMAN M.D. Encounter Diagnosis: Problem not documented On: 09-Aug-2017 14:00 Appointment; ADRI HOFFMAN M.D. Encounter Diagnosis: Problem not documented On: 16-Aug-2017 16:00 Appointment; ADRI HOFFMAN M.D. Encounter Diagnosis: Problem not documented On: 23-Aug-2017 15:45 Appointment; ADRI HOFFMAN M.D. Encounter Diagnosis: Problem not documented On: 15-Sep-2017 13:30 Appointment; ADRI HOFFMAN M.D. Encounter Diagnosis: Problem not documented On: 18-Oct-2017 11:00 Appointment; ADRI HOFFMAN M.D. Encounter Diagnosis: Problem not documented On: 29-Nov-2017 11:00 Appointment; ADRI HOFFMAN M.D. Encounter Diagnosis: Problem not documented On: 02-Feb-2018 11:00 Appointment; ADRI HOFFMAN M.D. Encounter Diagnosis: Problem not documented On: 04-Apr-2018 11:00 Appointment; ADRI HOFFMAN M.D. Encounter Diagnosis: Problem not documented On: 30-May-2018 11:15 Appointment; ADRI HOFFMAN M.D. Encounter Diagnosis: Problem not documented On: 06-Jun-2018 11:00 Appointment; COLTON LINDSAY D.O. Encounter Diagnosis: Problem not documented On: 13-Aug-2018 10:30 Appointment; COLTON LINDSAY D.O. Encounter Diagnosis: Problem not documented On: 21-Feb-2019 12:00
[2019-02-22] MEDS ORDERED: LIDOCAINE 1% W/EPINEPHRINE 20 ML VIAL ONE (15:01)
[2019-02-22] MEDS ORDERED: AUGMENTIN 875-1 EACH PO (16:04)
== END 2019-02-22 16:22 | disposition home or self-care (01) ==
LOC: ER 14:35
DX: S51.802A Unspecified open wound of left forearm, initial encounter (principal); W01.118A Fall on same level from slipping, tripping and stumbling with subsequent striking against other sharp object, initial encounter; Y92.009 Unspecified place in unspecified non-institutional (private) residence as the place of occurrence of the external cause
CPT/HCPCS: 99284